=== PATIENT | male | born 1955 | race African-American/Black ===

== ENCOUNTER 2023-03-15 18:11 | Emergency (ER) | payer OTHER, SELFPAY ==
[2023-03-15 18:19] VITALS: BP 148/90; PULSE 101; RESP 18; TEMP 36.3; O2SAT 99; BMI 35.1
--- NOTE | 2023-03-15 18:47 | ECG_ITS ---
[facility] Test Date: 2023-03-15 Pat Name: MARK THOMAS Department: Room: - Gender: Male [employer]: : 1955 Requested By: [id number] Order Number: [id number] Reading MD: NAVIN BAER Measurements Intervals [place] Rate: 89 P: 57 ME: 208 QRS: 53 QRSD: 92 T: 90 QT: 368 QTc: 414 Interpretive Statements 1100 Sinus rhythm 1570 with occasional ventricular premature complexes 9140 abnormal rhythm ECG No previous ECG available for comparison Electronically Signed On 03-16-2023 7:10:40 EST by NAVIN BAER
[2023-03-15 19:01] VITALS: PULSE 89
--- NOTE | 2023-03-15 19:06 | ED_ITS ---
HPI - Abdominal Pain General Chief Complaint: Abdominal Pain Stated Complaint: ABDOMINAL PAIN Time Seen by Provider: 03/15/23 18:23 Source: patient Mode of arrival: walk-in Limitations: no limitations History of Present Illness HPI narrative: Patient is a 68-year-old male referred to the emergency department by his primary care provider for diffuse abdominal pain that began today associated with multiple episodes of vomiting and vomiting bile. He denies fevers, chills, diarrhea. He states he had a bowel movement today but does not feel as though he went enough. He has had no urinary symptoms. He denies any urinary changes. No medications taken prior to arrival. He denies any previous surgeries on his abdomen. Related Data Previous Rx's Medication Instructions Recorded dicyclomine 20 mg tablet 20 mg PO QID PRN abdominal pain 03/15/23 #12 tabs ondansetron 4 mg disintegrating 4 mg PO Q6H PRN nausea and 03/15/23 tablet vomiting #12 tabs potassium chloride 20 mEq 20 meq PO BID #6 tabs 03/15/23 tablet,extended release Allergies Allergy/AdvReac Type Severity Reaction Status Date / Time No Known Drug Allergies Allergy Verified 03/15/23 18:19 Review of Systems ROS Constitutional Denies: fever or chills Ears, nose, mouth, and throat Denies: throat pain or nasal congestion Cardiovascular Denies: chest pain Respiratory Denies: shortness of breath or cough Gastrointestinal Reports: abdominal pain, nausea and vomiting; Denies: diarrhea Genitourinary Denies: painful urination Musculoskeletal Denies: back pain Integumentary/Breast Denies: rash Neurological Denies: headache PFSH PFSH Social History Smoking status: Former smoker Exam Narrative Exam Narrative: Gen.: Awake, alert, in no distress Head: Normocephalic, atraumatic ENT: Moist mucous membranes Respiratory: No respiratory distress, lungs clear bilaterally Cardio: Regular rate and rhythm Gastrointestinal: Abdomen is soft, nondistended and nontender to palpation Extremities: Moves extremities equally, no injuries noted Psych: Normal mood and affect Neuro: No focal neuro deficit Skin: Warm, dry, intact Constitutional Vital Signs, click to edit/add: Last Vital Signs Temp 97.4 F L 03/15/23 18:19 Pulse 96 H 03/15/23 21:53 Resp 18 03/15/23 21:53 BP 166/93 H 03/15/23 21:53 Pulse Ox 97 03/15/23 21:53 O2 Del Method Room Air 03/15/23 21:53 Course Vital Signs Vital signs: Vital Signs Temperature 97.4 F L 03/15/23 18:19 Pulse Rate 101 H 03/15/23 18:19 Respiratory Rate 18 03/15/23 18:19 Blood Pressure 148/90 H 03/15/23 18:19 Pulse Oximetry 99 03/15/23 18:19 Oxygen Delivery Method Room Air 03/15/23 18:19 Temperature 97.4 F L 03/15/23 18:19 Pulse Rate 96 H 03/15/23 21:53 Respiratory Rate 18 03/15/23 21:53 Blood Pressure 166/93 H 03/15/23 21:53 Pulse Oximetry 97 03/15/23 21:53 Oxygen Delivery Method Room Air 03/15/23 21:53 MDM - Abdominal Pain MDM Narrative Medical decision making narrative: Lab studies show the patient has low potassium, otherwise unremarkable labs. Lactic acid is normal, influenza swab was requested by the patient, this is also negative. CT of the abdomen pelvis with no evidence of acute process. Patient discharged home with Zofran, Levsin, potassium. Follow-up with PCP and return to the ER if symptoms change or worsen. Medical Records Attestation: I reviewed the patient's medical records. Lab Data Attestation: I reviewed the patient's lab results. Labs: Lab Results 03/15/23 03/15/23 03/15/23 Range/Units 18:58 20:30 20:50 WBC 6.3 (4.0-11.0) 10^3/uL RBC 4.65 L (4.70-6.10) 10^6/uL Hgb 12.8 L (14.0-18.0) g/dL Hct 38.0 L (42.0-54.0) % MCV 81.7 (80.0-94.0) fL MCH 27.5 (25.9-34.0) pg MCHC 33.7 (29.9-35.2) g/dL RDW 13.1 (11.0-15.0) % Plt Count 200 (150-450) 10^3/uL MPV 9.7 (9.5-13.5) fL Neut % (Auto) 77.4 H (43.0-75.0) % Lymph % (Auto) 16.7 L (20.5-60.0) % Pope % (Auto) 4.9 (1.7-12.0) % Eos % (Auto) 0.2 L (0.9-7.0) % Baso % (Auto) 0.6 (0.2-2.0) % Neut # (Auto) 4.9 (1.4-6.5) 10^3/uL Lymph # (Auto) 1.1 L (1.2-3.8) 10^3/uL Pope # (Auto) 0.3 (0.3-0.8) 10^3/uL Eos # (Auto) 0.0 (0.0-0.7) 10^3/uL Baso # (Auto) 0.0 (0.0-0.1) 10^3/uL Abs Immat Gran (auto) 0.01 (0.00-0.03) 10^3/uL Imm/Tot Granulo (auto) 0.2 (0.0-0.5) % Sodium 137 (136-145) mmol/L Potassium 2.8 L* (3.5-5.1) mmol/L Chloride 96 L (98-107) mmol/L Carbon Dioxide 32.7 H (21.0-32.0) mmol/L Anion Gap 11.1 BUN 15.0 (7.0-18.0) mg/dL Creatinine 0.73 (0.70-1.30) mg/dL Est GFR ( Amer) >60 (>=60) Est GFR (Non-Af Amer) >60 (>=60) BUN/Creatinine Ratio 20.5 Glucose 146 H (74-106) mg/dL Lactate 1.4 (0.4-2.0) mmol/L Calcium 9.7 (8.5-10.1) mg/dL Total Bilirubin 0.7 (0.2-1.0) mg/dL AST 25 (15-37) U/L ALT 26 (16-63) U/L Alkaline Phosphatase 97 (46-116) U/L Troponin I High Sens 7.7 (4.0-76.1) pg/mL Total Protein 8.9 H (6.4-8.2) g/dL Albumin 4.6 (3.4-5.0) g/dL Globulin 4.3 g/dL Albumin/Globulin Ratio 1.1 Lipase 38.0 (16.0-77.0) U/L Urine Color Yellow (YELLOW) Urine Clarity Clear (CLEAR) Urine pH 7.0 (5.0-9.0) Ur Specific [place] 1.015 (1.005-1.025) Urine Protein 30 A (NEG/TRACE) mg/dL Urine Glucose (UA) Negative (NEGATIVE) mg/dL Urine Ketones 15 A (NEGATIVE) mg/dL Urine Occult Blood Trace-i (NEGATIVE) Urine Nitrite Negative (NEGATIVE) Urine Bilirubin Negative (NEGATIVE) Urine Urobilinogen 0.2 (0.2-1.0) EU/dL Ur Leukocyte Esterase Negative (NEGATIVE) Urine RBC 0-2 (0-2) #/HPF Urine WBC None seen (NONE SEEN) #/HPF Ur Squamous Epith Cells None seen (NONE/RARE) #/LPF Urine Crystals None seen (None Seen) #/HPF Urine Bacteria None seen (NONE SEEN) #/HPF Urine Casts None seen (NONE SEEN) #/LPF Urine Mucus None seen (NONE SEEN) Influenza Type A Ag Negative Influenza Type B Ag Negative Imaging Data CT scan - abdomen: Attestation: I have reviewed the pertinent imaging results. Radiologist's impression: Procedure: CT abdomen pelvis w con EXAM: CT abdomen pelvis w con HISTORY: Abdominal pain, vomiting COMPARISON: 05/18/2021 TECHNIQUE: Axial CT imaging was performed through the abdomen and pelvis with intravenous contrast. Multiplanar reformats were performed. Dose reduction techniques were achieved by using automated exposure control and/or adjustment of mA and/or kV according to patient size and/or use of iterative reconstruction technique. FINDINGS: Lung bases: Lung bases are clear. No pleural effusion. GI upper: Unremarkable. Liver: Normal size and contour. Gallbladder: No significant abnormality. No cholelithiasis. Biliary system: No intra or extrahepatic biliary ductal dilatation. Spleen: Normal size. Pancreas: Unremarkable. Adrenal glands: Normal adrenal glands. Kidneys/ureters: Normal contours. No hydronephrosis. No nephrolithiasis or ureterolithiasis. Vessels: No aneurysm. Lymph Nodes: No lymphadenopathy. Small bowel: No wall thickening or dilatation. Colon: No wall thickening or dilatation. Appendix: Appendix is identified with normal appearance. Peritoneal cavity: No free fluid or pneumoperitoneum. Lower : Unremarkable. Bones: No acute bony abnormality. Soft tissues: No acute finding. Additional findings: None. IMPRESSION: No acute finding of the abdomen and pelvis. Electronically authenticated by: JESSICA ASENCIO Date: 03/15/2023 20:49 ECG Data Attestation: I personally reviewed and interpreted this ECG as follows: (Normal sinus rhythm at a rate of 89, no acute ST elevation. Occasional ectopy. EKG reviewed by attending physician) ECG interpretation date: 03/15/23 Discharge Plan Discharge Chief Complaint: Abdominal Pain Clinical Impression: Nausea & vomiting, Abdominal pain, Acute hypokalemia Patient Disposition: Home, Self-Care Time of Disposition Decision: 21:33 Condition: Good Prescriptions / Home Meds: New dicyclomine 20 mg tablet 20 mg PO QID PRN (Reason: abdominal pain) Qty: 12 0RF ondansetron 4 mg tablet,disintegrating 4 mg PO Q6H PRN (Reason: nausea and vomiting) Qty: 12 0RF potassium chloride 20 mEq tablet extended release 20 meq PO BID Qty: 6 0RF Instructions: Hypokalemia (ED), Abdominal Pain (ED) Stand Alone Forms: Portal Instructions Referrals: ABDOUL ADAM [Primary Care Provider] - 1 week Discharge Date/Time: 03/15/23 21:56
[2023-03-15 19:12] LABS: Basophils Percent Auto 0.6 % (0.2-2.0); Eosinophils Percent Auto 0.2 % (0.9-7.0); Hemoglobin 12.8 g/dL (14.0-18.0); Immature Granulocytes Abs Auto 0.01 10^3/uL (0.00-0.03); Immature Granulocytes Pct Auto 0.2 % (0.0-0.5); Lymphocytes Absolute Auto 1.1 10^3/uL (1.2-3.8); Lymphocytes Percent Auto 16.7 % (20.5-60.0); Mean Corpuscular HGB Conc 33.7 g/dL (29.9-35.2); Mean Corpuscular Hemoglobin 27.5 pg (25.9-34.0); Mean Corpuscular Volume 81.7 fL (80.0-94.0); Mean Platelet Volume 9.7 fL (9.5-13.5); Monocytes Absolute Auto 0.3 10^3/uL (0.3-0.8); Monocytes Percent Auto 4.9 % (1.7-12.0); Neutrophils Absolute Auto 4.9 10^3/uL (1.4-6.5); Neutrophils Percent Auto 77.4 % (43.0-75.0); Platelet Count 200 10^3/uL (150-450); Red Blood Count 4.65 10^6/uL (4.70-6.10); Red Cell Distribution Width 13.1 % (11.0-15.0); White Blood Count 6.3 10^3/uL (4.0-11.0)
[2023-03-15 19:33] LABS: Troponin I High Sensitivity 7.7 pg/mL (4.0-76.1)
[2023-03-15 19:34] LABS: Lactate/Lactic Acid 1.4 mmol/L (0.4-2.0)
[2023-03-15] MEDS: ONDANSETRON PF 4 MG/2 ML VIAL IV (19:35)
[2023-03-15] MEDS: MORPHINE SULFATE 4 MG/ML VIAL IV (19:35)
[2023-03-15] MEDS: 0.9 % SODIUM CHLORIDE 1,000 ML 100 ML IV (19:35)
[2023-03-15] MEDS: HYOSCYAMINE SULFATE 0.125 MG TAB.SUBL SL (19:35)
[2023-03-15 19:41] LABS: Alanine Aminotransferase 26 U/L (16-63); Albumin Globulin Ratio 1.1; Albumin Level 4.6 g/dL (3.4-5.0); Alkaline Phosphatase 97 U/L (46-116); Anion Gap 11.1; Aspartate Amino Transferase 25 U/L (15-37); BUN Creatinine Ratio 20.5; Bilirubin Total 0.7 mg/dL (0.2-1.0); Calcium 9.7 mg/dL (8.5-10.1); Carbon Dioxide 32.7 mmol/L (21.0-32.0); Chloride 96 mmol/L (98-107); Estimated GFR (African America >60 (>=60); Estimated GFR (Non-African Ame >60 (>=60); Globulin 4.3 g/dL; Glucose 146 mg/dL (74-106); Sodium 137 mmol/L (136-145); Total Protein 8.9 g/dL (6.4-8.2)
[2023-03-15 19:55] LABS: Potassium 2.8 mmol/L (3.5-5.1)
--- NOTE | 2023-03-15 20:00 | CT_ITS ---
[address] [address] Patient Name: MARK THOMAS MRN: [id number] date: 1955 Sex: M Assigned Patient Location: ER Current Patient Location: ED.MAIN Accession/Order Number: [id number] Exam Date: 03/15/2023 20:08 Report Date: 03/15/2023 20:49 At the request of: RAÚL MCLEAN Procedure: CT abdomen pelvis w con EXAM: CT abdomen pelvis w con HISTORY: Abdominal pain, vomiting COMPARISON: 05/18/2021 TECHNIQUE: Axial CT imaging was performed through the abdomen and pelvis with intravenous contrast. Multiplanar reformats were performed. Dose reduction techniques were achieved by using automated exposure control and/or adjustment of mA and/or kV according to patient size and/or use of iterative reconstruction technique. FINDINGS: Lung bases: Lung bases are clear. No pleural effusion. GI upper: Unremarkable. Liver: Normal size and contour. Gallbladder: No significant abnormality. No cholelithiasis. Biliary system: No intra or extrahepatic biliary ductal dilatation. Spleen: Normal size. Pancreas: Unremarkable. Adrenal glands: Normal adrenal glands. Kidneys/ureters: Normal contours. No hydronephrosis. No nephrolithiasis or ureterolithiasis. Vessels: No aneurysm. Lymph Nodes: No lymphadenopathy. Small bowel: No wall thickening or dilatation. Colon: No wall thickening or dilatation. Appendix: Appendix is identified with normal appearance. Peritoneal cavity: No free fluid or pneumoperitoneum. Lower : Unremarkable. Bones: No acute bony abnormality. Soft tissues: No acute finding. Additional findings: None. CT/CT abdomen pelvis w con IMPRESSION: No acute finding of the abdomen and pelvis. Electronically authenticated by: JESSICA ASENCIO Date: 03/15/2023 20:49
[2023-03-15 20:42] LABS: Bilirubin Urine NEGATIVE (NEGATIVE); Blood Urine TRACE-I (NEGATIVE); Clarity Urine CLEAR (CLEAR); Color Urine YELLOW (YELLOW); Glucose Urine UA NEGATIVE (NEGATIVE); Ketones Urine 15 mg/dL (NEGATIVE); Leukocyte Esterase Urine NEGATIVE (NEGATIVE); Nitrite Urine NEGATIVE (NEGATIVE); Protein Urine 30 mg/dL (NEG/TRACE); Specific Gravity Urine 1.015 (1.005-1.025); Urine Microscopic Indicated YES; Urobilinogen Urine 0.2 EU/dL (0.2-1.0)
[2023-03-15 20:43] VITALS: BP 170/100; PULSE 96; RESP 14; O2SAT 97
[2023-03-15] MEDS: KETOROLAC TROMETHAMINE 30 MG/ML VIAL 15 MG IVP (20:48)
[2023-03-15 21:21] LABS: Bacteria Urine NONE SEEN #/HPF (NONE SEEN); Cast Seen? NONE SEEN #/LPF (NONE SEEN); Crystals Seen? None Seen #/HPF (None Seen); Mucus Urine NONE SEEN (NONE SEEN); RBC Urine 0-2 #/HPF (0-2); Squamous Epithelial Cell Urine NONE SEEN #/LPF (NONE/RARE); WBC Urine NONE SEEN #/HPF (NONE SEEN)
[2023-03-15 21:25] LABS: Influenza Virus A Antigen Negative; Influenza Virus B Antigen Negative; Internal Control Within Normal Limits
[2023-03-15] MEDS: POTASSIUM BICARBONATE/CIT 25 MEQ TABLET EFF 50 MEQ PO (21:26)
[2023-03-15 21:30] VITALS: BP 184/100; PULSE 95; RESP 18; O2SAT 96
[2023-03-15 21:53] VITALS: BP 166/93; PULSE 96; RESP 18; O2SAT 97
== END 2023-03-15 21:56 | disposition home or self-care (01) ==
PROVIDERS: Physician Assistant; Emergency Provider Emergency Medicine Emergency Medical Services; PCP Family Medicine
DX: R10.9 Unspecified abdominal pain (principal); R11.2 Nausea with vomiting, unspecified; E87.6 Hypokalemia; Z87.891 Personal history of nicotine dependence
CPT/HCPCS: 36415; 74177; 80053; 81001; 83605; 83690; 84484; 85025; 87804; 87811; 93005; 96374; 96375; 99285; Q9967

== ENCOUNTER 2023-09-05 21:55 | Emergency (ER) | payer OTHER, SELFPAY ==
[2023-09-05 22:00] VITALS: BP 128/65; PULSE 83; TEMP 36.6; O2SAT 96; BMI 36.6
--- NOTE | 2023-09-05 22:10 | ECG_ITS ---
[facility] Test Date: 2023-09-05 Pat Name: MARK THOMAS Department: Room: - Gender: Male Transport Engineer: : 1955 Requested By: [id number] Order Number: [id number] Reading MD: NAVIN BAER Measurements Intervals [place] Rate: 84 P: 68 ND: 192 QRS: 67 QRSD: 92 T: 106 QT: 382 QTc: 423 Interpretive Statements 1100 Sinus rhythm 1577 with couplet ventricular premature complexes [address] depression 6220 Possible left atrial enlargement 7300 Indeterminate axis 9150 abnormal ECG Electronically Signed On 09-06-2023 6:51:24 EDT by NAVIN BAER
--- OUTSIDE RECORDS SUMMARY | 2023-09-05 22:10 | XMS_ITS | CCD ---
Author Organization [facility] Team Providers Care Dental Coordinator Name Role Phone FLAQUITO FERNANDEZ Admitting Unavailable FLAQUITO FERNANDEZ Attending Unavailable MISC, DR WALTON Primary Care Unavailable FLAQUITO FERNANDEZ Consulting Unavailable [employer] Consulting Unavailable Jeramie Lara Consulting Unavailable Wilfredo Colon Unavailable [phone] Esther Rain Unavailable Pop Cm Attending Unavailable Kylah James Primary Care Unavailable Kylah James Referring Unavailable Pop Cm Admitting Unavailable EMILY ESCUDERO Attending Unavailab STEPHANY Ureña Attending Unavailable KATRIN GARCIA Attending Unavailable Medications Current Medications Medication Drug Class(es) Dates Sig (Normalized) Sig (Original) acyclovir 400 mg oral tablet (2 sources) Herpesvirus Nucleoside Analog DNA Polymerase Inhibitor, Herpes Simplex Virus Nucleoside Analog DNA Polymerase Inhibitor, Herpes Zoster Virus Nucleoside Analog DNA Polymerase Inhibitor Start: 05-10-2020 take 400 mg by mouth twice daily Acyclovir Active 400 MG PO Twice daily May 10, 2020 1:00am allopurinol 100 mg oral tablet (2 sources) Xanthine Oxidase Inhibitor Start: 05-10-2020 take 100 mg by mouth once daily Allopurinol Active 100 MG PO Daily May 10, 2020 1:00am amLODIPine 10 mg oral tablet (2 sources) Dihydropyridine Calcium Channel Charlee Start: 05-10-2020 take 10 mg by mouth once daily Amlodipine Active 10 MG PO Daily May 10, 2020 1:00am atorvastatin 10 mg oral tablet (1 source) HMG-CoA Reductase Inhibitor Atorvastatin Calcium 10 MG Oral for 90 Days Active buprenorphine 4 mg / naloxone 1 mg sublingual film (1 source) Partial Opioid Agonist, Opioid Antagonist Start: 05-10-2020 Buprenorphine-Nal oxone (Suboxone) 4-1 mg Film Active 1 FILM SUBLINGUAL Daily May 10, 2020 1:00am carvedilol 25 mg oral tablet (2 sources) alpha-Adrenergic Charlee, beta-Adrenergic Charlee Start: 05-10-2020 take 25 mg by mouth twice daily Carvedilol Active 25 MG PO Twice daily May 10, 2020 1:00am Compression stockings, 30-40mmHg, calf 30-40mmHg (9 sources) Start: 12-29-2022 Compression stockings, 30-40mmHg, calf 30-40mmHg 1 pair externally daily while awake for 30 days Dec, Active Start: 12-24-[address] ockings, 30-40mmHg, calf 30-40mmHg 1 externally daily as directed for 30 days Dec, Active Start: 10-20-[address] ockings, 30-40mmHg, calf 30-40mmHg externally daily as directed for 90 days Oct, Active Start: 02-24-[address] ockings, 30-40mmHg, calf 30-40mmHg externally daily as directed for 90 days Feb, Active Start: 01-29-[address] ockings, 30-40mmHg, calf 30-40mmHg externally daily as directed for 30 days Jan, Active fexofenadine hydrochloride 180 mg oral tablet (1 source) Histamine-1 Receptor Antagonist Start: 05-10-2020 take 1 tablet by mouth once daily Fexofenadine (Rajani Allergy) 180 mg Tablet Active 180 MG PO Daily May 10, 2020 1:00am furosemide 40 mg oral tablet (2 sources) Loop Diuretic Start: 05-10-2020 take 40 mg by mouth twice daily Furosemide Active 40 MG PO Twice daily May 10, 2020 1:00am gabapentin 300 mg oral capsule (1 source) Anti-epileptic Agent take 1 capsule by mouth at bedtime Gabapentin 300 MG TAKE 1 CAPSULE BY MOUTH AT BEDTIME Oral for 90 Days Active Pulsb-Les-X-Ednmw-Nlef-K ve (Joint Support Complex) 106-618-28-0.5 mg Capsule (1 source) Start: 05-10-2020 take 2 capsules by mouth once daily in the morning Omzza-Jjo-T-[place] -Alexander-Tina (Joint Support Complex) 266-856-45-0.5 mg Capsule Active 2 CAP PO Every morning May 10, 2020 1:00am hydroCHLOROthiazide 25 mg / losartan potassium 100 mg oral tablet (2 sources) Thiazide Diuretic, Angiotensin 2 Receptor Charlee Start: 05-10-2020 take 1 tablet by mouth once daily Losartan-Hydrochl orothiazide Active 1 TAB PO Daily May 10, 2020 1:00am Losartan Potassi um-HCTZ 100-25 MG Oral for 90 Days Active Medical Compression Stockings 20-30 mmHg (4 sources) Start: 03-04-2016 Medical Compression Stockings 20-30 mmHg as directed Feb, Active meloxicam 7.5 mg oral tablet (2 sources) Nonsteroidal Anti-inflammatory Drug Start: 05-10-2020 take 7.5 mg by mouth once daily Meloxicam Active 7.5 MG PO Daily May 10, 2020 1:00am Multivit With Min-Folic Acid (Centrum Adult 50 Fresh-Fruity) 120 mcg Tablet,Chewable (1 source) Start: 05-10-2020 take 1 tablet by mouth once daily Multivit With Min-Folic Acid (Centrum Adult 50 Fresh-Fruity) 120 mcg Tablet,Chewable Active 1 TAB PO Daily May 10, 2020 1:00am tiZANidine 4 mg oral tablet (1 source) Central alpha-2 Adrenergic Agonist tiZANidine HCl 4 MG Oral for 30 Days Active Completed/Discontinued Medications Medication Drug Class(es) Dates Sig (Normalized) Sig (Original) Acetaminophen / HYDROcodone (4 sources) Opioid Agonist Start: 07-19-2014 take 1 tablet by mouth every six hours as needed Vicodin 5-300 MG 1 tablet as needed Orally every 6 hrs for 5 day(s) Jul, Not-Taking Medical Compression Stockings 30-40 mmHg (4 sources) Start: 05-06-2015 Medical Compression Stockings 30-40 mmHg as directed May, Not-Taking Problems Active Problems Problem Classification Problem Date Documented Date Episodic/Chronic Abdominal pain (4 sources) Unspecified abdominal pain; Translations: [UNSPECIFIED ABDOMINAL PAIN] Onset: 05-18-2021 Episodic Diseases of white blood cells (2 sources) Neutropenia; Translations: [Neutropenia, unspecified] Onset: 05-13-2020 05-13-2020 Chronic Other aftercare (1 source) Other halfway (current) drug therapy; Translations: [OTH RAIL TRACK LAYER CURRENT DRUG THERAPY] Onset: 05-22-2021 Episodic Other circulatory disease (1 source) Personal history of other diseases of the circulatory system Episodic Other diseases of veins and lymphatics (5 sources) Venous insufficiency of leg; Translations: [Venous insufficiency (chronic) (peripheral)] Episodic Other diseases of veins and lymphatics (5 sources) Venous stasis edema of bilateral lower limbs; Translations: [Venous insufficiency (chronic) (peripheral)] Episodic Other diseases of veins and lymphatics (2 sources) Venous insufficiency (chronic) (peripheral) Onset: 05-01-2021 Resolved: 05-01-2021 Episodic Other diseases of veins and lymphatics (1 source) Vascular insufficiency; Translations: [Venous insufficiency (chronic) (peripheral)] Episodic Residual codes; unclassified (1 source) Localized edema Episodic Unclassified (1 source) CONTACT W/AND (SUSP) EXPOS COVID-19; Translations: [CONTACT W/AND (SUSP) EXPOS COVID-19] Onset: 05-22-2021 Varicose veins of lower extremity (8 sources) Varicose veins of lower extremity; Translations: [Varicose veins of bilateral lower extremities with other complications] Onset: 05-01-2021 Resolved: 05-01-2021 Episodic Past or Other Problems Problem Classification Problem Date Documented Da te Episodic/Chronic Deficiency and other anemia (1 source) Anemia, unspecified; Translations: [Anemia, unspecified] Onset: 05-13-2020 Episodic Results Test Name Value Interpretation Reference Range Facility ALT (SGPT)/AST (SGOT)on 05-07 ALT [Catalytic activity/Vol] 22 U/L Normal (1 - 45) [facility] Comment on above: Performed By: #### C BC/D, BC/BCR, ESRCRP, ALT+, URCA #### [facility] [address] [facility], [address] AST [Catalytic activity/Vol] 33 U/L Normal (15 - 46) [facility] Comment on above: Performed By: #### C BC/D, BC/BCR, ESRCRP, ALT+, URCA #### [facility] [address] [facility], [address] BUN - CREATININE W/GFRon Creatinine [Mass/Vol] 0.64 mg/dL Low (0.66 - 1.25) [facility] Comment on above: Performed By: #### C BC/D, BC/BCR, ESRCRP, ALT+, URCA #### [facility] [address] [facility], [address] GFR- AMER 151.4 ML/M1.7 Normal (60.0 - 161.8) [facility] Comment on above: Performed By: #### C BC/D, BC/BCR, ESRCRP, ALT+, URCA #### [facility] [address] [facility], [address] GFR-NON AFRIC-AMER 125.1 ML/M1.7 Normal (60.0 - 133.8) [facility] Comment on above: Performed By: #### C BC/D, BC/BCR, ESRCRP, ALT+, URCA #### [facility] [address] [facility], [address] Urea nitrogen [Mass/Vol] 17 mg/dL Normal (9 - 20) [facility] Comment on above: Performed By: #### C BC/D, BC/BCR, ESRCRP, ALT+, URCA #### [facility] [address] [facility], [address] Urea nitrogen/Creatini ne [Mass ratio] 27 mg/mg High (6 - 20) [facility] Comment on above: Performed By: #### C BC/D, BC/BCR, ESRCRP, ALT+, URCA #### [facility] [address] [facility], [address] CBC WITH DIFFon 06-02-2023 ABS BASOPHIL 0.06 x10^3ul Normal (0.00 - 0.16) [facility] Comment on above: Order Comment: F[facility]IL [facility] [id number] Performed By: #### C BC/D, BC/BCR, ESRCRP, ALT+, URCA #### [facility] [address] [facility], [address] ABS EOSINOPHIL 0.21 x10^3ul Normal (0.00 - 0.40) [facility] Comment on above: Order Comment: [facility]IL [facility] [id number] Performed By: #### C BC/D, BC/BCR, ESRCRP, ALT+, URCA #### [facility] [address] [facility], [address] ABS IMMATURE GRANS 0.00 x10^3ul Normal (0.00 - 0.11) [facility] Comment on above: Order Comment: [facility]IL [facility] [id number] Performed By: #### C BC/D, BC/BCR, ESRCRP, ALT+, URCA #### [facility] [address] [facility], [address] ABS LYMPHOCYTE 1.35 x10^3ul Normal (0.96 - 5.40) [facility] Comment on above: Order Comment: [facility]IL [facility] [id number] Performed By: #### C BC/D, BC/BCR, ESRCRP, ALT+, URCA #### [facility] [address] [facility], [address] ABS MONOCYTE 0.49 x10^3ul Normal (0.10 - 1.00) [facility] Comment on above: Order Comment: [facility]IL [facility] [id number] Performed By: #### C BC/D, BC/BCR, ESRCRP, ALT+, URCA #### [facility] [address] [facility], [address] ABS NEUTROPHIL 2.37 x10^3ul Normal (1.50 - 7.00) [facility] Comment on above: Order Comment: [facility]IL [facility] [id number] Performed By: #### C BC/D, BC/BCR, ESRCRP, ALT+, URCA #### [facility] [address] [facility], [address] Basophils/100 WBC (Bld) 1.3 % Normal () [facility] Comment on above: Order Comment: [facility]IL [facility] [id number] Performed By: #### C BC/D, BC/BCR, ESRCRP, ALT+, URCA #### [facility] [address] [facility], [address] Eosinophils/100 WBC (Bld) 4.7 % Normal () [facility] Comment on above: Order Comment: [facility]IL [facility] [id number] Performed By: #### C BC/D, BC/BCR, ESRCRP, ALT+, URCA #### [facility] [address] [facility], [address] Hematocrit (Bld) [Volume fraction] 37.0 % Low (42.0 - 52.0) [facility] Comment on above: Order Comment: [facility]IL [facility] [id number] Performed By: #### C BC/D, BC/BCR, ESRCRP, ALT+, URCA #### [facility] [address] [facility], [address] Hemoglobin (Bld) [Mass/Vol] 12.1 g/dL Low (14.0 - 18.0) [facility] Comment on above: Order Comment: [facility]IL [facility] [id number] Performed By: #### C BC/D, BC/BCR, ESRCRP, ALT+, URCA #### [facility] [address] [facility], [address] IMMATURE GRANS (IG) 0.0 % Normal () [facility] Comment on above: Order Comment: [facility]IL [facility] [id number] Performed By: #### C BC/D, BC/BCR, ESRCRP, ALT+, URCA #### [facility] [address] [facility], [address] LYMPS 30.1 % Normal () [facility] Comment on above: Order Comment: [facility]IL [facility] [id number] Performed By: #### C BC/D, BC/BCR, ESRCRP, ALT+, URCA #### [facility] [address] [facility], [address] MCH (RBC) [Entitic mass] 26.7 pg Low (27.0 - 33.0) [facility] Comment on above: Order Comment: [facility]IL [facility] [id number] Performed By: #### C BC/D, BC/BCR, ESRCRP, ALT+, URCA #### [facility] [address] [facility], [address] MCHC (RBC) [Mass/Vol] 32.7 g/dL Normal (30.0 - 37.0) [facility] Comment on above: Order Comment: [facility]IL [facility] [id number] Performed By: #### C BC/D, BC/BCR, ESRCRP, ALT+, URCA #### [facility] [address] [facility], [address] MCV (RBC) [Entitic vol] 81.7 fL Normal (80.0 - 94.0) [facility] Comment on above: Order Comment: [facility]IL [facility] [id number] Performed By: #### C BC/D, BC/BCR, ESRCRP, ALT+, URCA #### [facility] [address] [facility], [address] MONOS 10.9 % Normal () [facility] Comment on above: Order Comment: [facility]IL [facility] [id number] Performed By: #### C BC/D, BC/BCR, ESRCRP, ALT+, URCA #### [facility] [address] [facility], [address] PLT 196 x10^3ul Normal (130 - 400) [facility] Comment on above: Order Comment: [facility]IL [facility] [id number] Performed By: #### C BC/D, BC/BCR, ESRCRP, ALT+, URCA #### [facility] [address] [facility], [address] RBC 4.53 x10^6ul Low (4.70 - 6.10) [facility] Comment on above: Order Comment: [facility]IL [facility] [id number] Performed By: #### C BC/D, BC/BCR, ESRCRP, ALT+, URCA #### [facility] [address] [facility], [address] RDW-SD 40.9 fl Normal (37.0 - 49.0) [facility] Comment on above: Order Comment: F[facility]IL [facility] [id number] Performed By: #### C BC/D, BC/BCR, ESRCRP, ALT+, URCA #### [facility] [address] [facility], [address] SEGS 53.0 % Normal () [facility] Comment on above: Order Comment: FACIL [facility]: [facility] [id number] Performed By: #### C BC/D, BC/BCR, ESRCRP, ALT+, URCA #### [facility] [address] [facility], [address] WBC 4.48 x10^3ul Normal (3.80 - 10.60) [facility] Comment on above: Order Comment: FACIL ITY: [facility] [id number] Performed By: #### C BC/D, BC/BCR, ESRCRP, ALT+, URCA #### [facility] [address] [facility], [address] SED RATE - CRPon 06-02-2023 CRP EXTENDED RANGE 2.05 MG/L Normal (0.00 - 3.20) [facility] Comment on above: Performed By: #### C BC/D, BC/BCR, ESRCRP, ALT+, URCA #### [facility] [address] [place], [address] SED RATE WEST. 13 MM/HR Normal (0 - 24) [facility] Comment on above: Performed By: #### C BC/D, BC/BCR, ESRCRP, ALT+, URCA #### [facility] [address] [facility], [address] URIC ACIDon 06-02-2023 Urate [Mass/Vol] 5.8 mg/dL Normal (3.5 - 8.5) [facility] Comment on above: Performed By: #### C BC/D, BC/BCR, ESRCRP, ALT+, URCA #### [facility] [address] [facility], [address] ALT (SGPT)/AST (SGOT)on 01-04 ALT [Catalytic activity/Vol] 27 U/L Normal (1 - 45) [facility] Comment on above: Performed By: #### C BC/D, BC/BCR, ESRCRP, ALT+, URCA #### [facility] [address] [facility], [address] AST [Catalytic activity/Vol] 37 U/L Normal (15 - 46) [facility] Comment on above: Performed By: #### C BC/D, BC/BCR, ESRCRP, ALT+, URCA #### [facility] [address] [facility], [address] BUN - CREATININE W/GFRon Creatinine [Mass/Vol] 0.84 mg/dL Normal (0.66 - 1.25) [facility] Comment on above: Performed By: #### C BC/D, BC/BCR, ESRCRP, ALT+, URCA #### [facility] [address] [facility], [address] GFR- AMER 111.0 ML/M1.7 Normal (60.0 - 161.8) [facility] Comment on above: Performed By: #### C BC/D, BC/BCR, ESRCRP, ALT+, URCA #### [facility] [address] [facility], [address] GFR-NON AFRIC-AMER 91.7 ML/M1.7 Normal (60.0 - 133.8) [facility] Comment on above: Performed By: #### C BC/D, BC/BCR, ESRCRP, ALT+, URCA #### [facility] [address] [facility], [address] Urea nitrogen [Mass/Vol] 18 mg/dL Normal (9 - 20) [facility] Comment on above: Performed By: #### C BC/D, BC/BCR, ESRCRP, ALT+, URCA #### [facility] [address] [facility], [address] Urea nitrogen/Creatini ne [Mass ratio] 21 mg/mg High (6 - 20) [facility] Comment on above: Performed By: #### C BC/D, BC/BCR, ESRCRP, ALT+, URCA #### [facility] [address] [facility], [address] CBC WITH DIFFon 01-25-2023 ABS BASOPHIL 0.04 x10^3ul Normal (0.00 - 0.16) [facility] Comment on above: Order Comment: FACIL ITY: [facility] [id number] Performed By: #### C BC/D, BC/BCR, ESRCRP, ALT+, URCA #### [facility] [address] [facility], [address] ABS EOSINOPHIL 0.29 x10^3ul Normal (0.00 - 0.40) [facility] Comment on above: Order Comment: F[facility]IL [facility]: [facility] [id number] Performed By: #### C BC/D, BC/BCR, ESRCRP, ALT+, URCA #### [facility] [address] [facility], [address] ABS IMMATURE GRANS 0.01 x10^3ul Normal (0.00 - 0.11) [facility] Comment on above: Order Comment: FACIL ITY: [facility] [id number] Performed By: #### C BC/D, BC/BCR, ESRCRP, ALT+, URCA #### [facility] [address] [facility], [address] ABS LYMPHOCYTE 1.80 x10^3ul Normal (0.96 - 5.40) [facility] Comment on above: Order Comment: FACIL [facility]: [facility] [id number] Performed By: #### C BC/D, BC/BCR, ESRCRP, ALT+, URCA #### [facility] [address] [facility], [address] ABS MONOCYTE 0.42 x10^3ul Normal (0.10 - 1.00) [facility] Comment on above: Order Comment: FACIL [facility]: [facility] [id number] Performed By: #### C BC/D, BC/BCR, ESRCRP, ALT+, URCA #### [facility] [address] [facility], [address] ABS NEUTROPHIL 2.68 x10^3ul Normal (1.50 - 7.00) [facility] Comment on above: Order Comment: FACIL ITY: [facility] [id number] Performed By: #### C BC/D, BC/BCR, ESRCRP, ALT+, URCA #### [facility] [address] [facility], [address] Basophils/100 WBC (Bld) 0.8 % Normal () [facility] Comment on above: Order Comment: FACIL ITY: [facility] [id number] Performed By: #### C BC/D, BC/BCR, ESRCRP, ALT+, URCA #### [facility] [address] [facility], [address] Eosinophils/100 WBC (Bld) 5.5 % Normal () [facility] Comment on above: Order Comment: FACIL ITY: [facility] [id number] Performed By: #### C BC/D, BC/BCR, ESRCRP, ALT+, URCA #### [facility] [address] [facility], [address] Hematocrit (Bld) [Volume fraction] 34.3 % Low (42.0 - 52.0) [facility] Comment on above: Order Comment: FACIL ITY: [facility] [id number] Performed By: #### C BC/D, BC/BCR, ESRCRP, ALT+, URCA #### [facility] [address] [facility], [address] Hemoglobin (Bld) [Mass/Vol] 11.3 g/dL Low (14.0 - 18.0) [facility] Comment on above: Order Comment: FACIL ITY: [facility] [id number] Performed By: #### C BC/D, BC/BCR, ESRCRP, ALT+, URCA #### [facility] [address] [facility], [address] IMMATURE GRANS (IG) 0.2 % Normal () [facility] Comment on above: Order Comment: FACIL ITY: [facility] [id number] Performed By: #### C BC/D, BC/BCR, ESRCRP, ALT+, URCA #### [facility] [address] [facility], [address] LYMPS 34.4 % Normal () [facility] Comment on above: Order Comment: F[facility]IL [facility]: [facility] [id number] Performed By: #### C BC/D, BC/BCR, ESRCRP, ALT+, URCA #### [facility] [address] [facility], [address] MCH (RBC) [Entitic mass] 27.4 pg Normal (27.0 - 33.0) [facility] Comment on above: Order Comment: F[facility]IL [facility]: [facility] [id number] Performed By: #### C BC/D, BC/BCR, ESRCRP, ALT+, URCA #### [facility] [address] [facility], [address] MCHC (RBC) [Mass/Vol] 32.9 g/dL Normal (30.0 - 37.0) [facility] Comment on above: Order Comment: FACIL ITY: [facility] [id number] Performed By: #### C BC/D, BC/BCR, ESRCRP, ALT+, URCA #### [facility] [address] [facility], [address] MCV (RBC) [Entitic vol] 83.3 fL Normal (80.0 - 94.0) [facility] Comment on above: Order Comment: FACIL ITY: [facility] [id number] Performed By: #### C BC/D, BC/BCR, ESRCRP, ALT+, URCA #### [facility] [address] [facility], [address] MONOS 8.0 % Normal () [facility] Comment on above: Order Comment: FACIL ITY: [facility] [id number] Performed By: #### C BC/D, BC/BCR, ESRCRP, ALT+, URCA #### [facility] [address] [facility], [address] PLT 194 x10^3ul Normal (130 - 400) [facility] Comment on above: Order Comment: FACIL ITY: [facility] [id number] Performed By: #### C BC/D, BC/BCR, ESRCRP, ALT+, URCA #### [facility] [address] [facility], [address] RBC 4.12 x10^6ul Low (4.70 - 6.10) [facility] Comment on above: Order Comment: [facility]IL [facility]: [facility] [id number] Performed By: #### C BC/D, BC/BCR, ESRCRP, ALT+, URCA #### [facility] [address] [facility], [address] RDW-SD 42.0 fl Normal (37.0 - 49.0) [facility] Comment on above: Order Comment: F[facility]IL [facility]: [facility] [id number] Performed By: #### C BC/D, BC/BCR, ESRCRP, ALT+, URCA #### [facility] [address] [facility], [address] SEGS 51.1 % Normal () [facility] Comment on above: Order Comment: FACIL ITY: [facility] [id number] Performed By: #### C BC/D, BC/BCR, ESRCRP, ALT+, URCA #### [facility] [address] [facility], [address] WBC 5.24 x10^3ul Normal (3.80 - 10.60) [facility] Comment on above: Order Comment: FACIL ITY: [facility] [id number] Performed By: #### C BC/D, BC/BCR, ESRCRP, ALT+, URCA #### [facility] [address] [facility], [address] SED RATE - CRPon 01-25-2023 CRP EXTENDED RANGE 1.66 MG/L Normal (0.00 - 3.20) [facility] Comment on above: Performed By: #### C BC/D, BC/BCR, ESRCRP, ALT+, URCA #### [facility] [address] [facility], [address] SED RATE WEST. 10 MM/HR Normal (0 - 24) [place] [facility] Comment on above: Performed By: #### C BC/D, BC/BCR, ESRCRP, ALT+, URCA #### [facility] [address] [facility], [id number] URIC ACIDon 01-25-2023 Urate [Mass/Vol] 4.8 mg/dL Normal (3.5 - 8.5) [facility] Comment on above: Performed By: #### C BC/D, BC/BCR, ESRCRP, ALT+, URCA #### [facility] [address] [facility], [address] ALT (SGPT)/AST (SGOT)on 07-05 ALT [Catalytic activity/Vol] 30 U/L Normal (1 - 45) [facility] Comment on above: Performed By: #### C BC/D, BC/BCR, ESRCRP, ALT+, URCA #### [facility] [address] [facility], [address] AST [Catalytic activity/Vol] 31 U/L Normal (15 - 46) [facility] Comment on above: Performed By: #### C BC/D, BC/BCR, ESRCRP, ALT+, URCA #### [facility] [address] [facility], [address] BUN - CREATININE W/GFRon Creatinine [Mass/Vol] 0.77 mg/dL Normal (0.66 - 1.25) [facility] Comment on above: Performed By: #### C BC/D, BC/BCR, ESRCRP, ALT+, URCA #### [facility] [address] [facility], [address] GFR- AMER 122.7 ML/M1.7 Normal (60.0 - 161.8) [facility] Comment on above: Performed By: #### C BC/D, BC/BCR, ESRCRP, ALT+, URCA #### [facility] [address] [facility], [address] GFR-NON AFRIC-AMER 101.4 ML/M1.7 Normal (60.0 - 133.8) [facility] Comment on above: Performed By: #### C BC/D, BC/BCR, ESRCRP, ALT+, URCA #### [facility] [address] [facility], [address] Urea nitrogen [Mass/Vol] 14 mg/dL Normal (9 - 20) [facility] Comment on above: Performed By: #### C BC/D, BC/BCR, ESRCRP, ALT+, URCA #### [facility] [address] [facility], [address] Urea nitrogen/Creatini ne [Mass ratio] 18 mg/mg Normal (6 - 20) [facility] Comment on above: Performed By: #### C BC/D, BC/BCR, ESRCRP, ALT+, URCA #### [facility] [address] [facility], [address] CBC WITH DIFFon 07-28-2022 ABS BASOPHIL 0.06 x10^3ul Normal (0.00 - 0.16) [facility] Comment on above: Order Comment: FACIL ITY: [facility] [id number] Performed By: #### C BC/D, BC/BCR, ESRCRP, ALT+, URCA #### [facility] [address] [facility], [address] ABS EOSINOPHIL 0.25 x10^3ul Normal (0.00 - 0.40) [facility] Comment on above: Order Comment: FACIL ITY: [facility] [id number] Performed By: #### C BC/D, BC/BCR, ESRCRP, ALT+, URCA #### [facility] [address] [facility], [address] ABS IMMATURE GRANS 0.01 x10^3ul Normal (0.00 - 0.11) [facility] Comment on above: Order Comment: FACIL ITY: [facility] NWO [id number] Performed By: #### C BC/D, BC/BCR, ESRCRP, ALT+, URCA #### [facility] [address] [facility], [address] ABS LYMPHOCYTE 1.76 x10^3ul Normal (0.96 - 5.40) [facility] Comment on above: Order Comment: FACIL ITY: [facility] NWO [id number] Performed By: #### C BC/D, BC/BCR, ESRCRP, ALT+, URCA #### [facility] [address] [facility], [address] ABS MONOCYTE 0.49 x10^3ul Normal (0.10 - 1.00) [facility] Comment on above: Order Comment: FACIL ITY: [facility]WO [id number] Performed By: #### C BC/D, BC/BCR, ESRCRP, ALT+, URCA #### [facility] [address] [facility], [address] ABS NEUTROPHIL 1.65 x10^3ul Normal (1.50 - 7.00) [facility] Comment on above: Order Comment: FACIL ITY: [facility] O [id number] Performed By: #### C BC/D, BC/BCR, ESRCRP, ALT+, URCA #### [facility] [address] [facility], [address] Basophils/100 WBC (Bld) 1.4 % Normal () [facility] Comment on above: Order Comment: FACIL ITY: [facility]WO [id number] Performed By: #### C BC/D, BC/BCR, ESRCRP, ALT+, URCA #### [facility] [address] [facility], [address] Eosinophils/100 WBC (Bld) 5.9 % Normal () [facility] Comment on above: Order Comment: FACIL ITY: [facility] NWO [id number] Performed By: #### C BC/D, BC/BCR, ESRCRP, ALT+, URCA #### [facility] [address] [facility], [address] Hematocrit (Bld) [Volume fraction] 38.4 % Low (42.0 - 52.0) [facility] Comment on above: Order Comment: FACIL ITY: [facility] [id number] Performed By: #### C BC/D, BC/BCR, ESRCRP, ALT+, URCA #### [facility] [address] [facility], [address] Hemoglobin (Bld) [Mass/Vol] 12.5 g/dL Low (14.0 - 18.0) [facility] Comment on above: Order Comment: FACIL ITY: [facility] [id number] Performed By: #### C BC/D, BC/BCR, ESRCRP, ALT+, URCA #### [facility] [address] [facility], [address] IMMATURE GRANS (IG) 0.2 % Normal () [facility] Comment on above: Order Comment: FACIL ITY: [facility] [id number] Performed By: #### C BC/D, BC/BCR, ESRCRP, ALT+, URCA #### [facility] [address] [facility], [address] LYMPS 41.7 % Normal () [facility] Comment on above: Order Comment: FACIL ITY: [facility] [id number] Performed By: #### C BC/D, BC/BCR, ESRCRP, ALT+, URCA #### [facility] [address] [facility], [address] MCH (RBC) [Entitic mass] 26.5 pg Low (27.0 - 33.0) [facility] Comment on above: Order Comment: FACIL ITY: [facility] [id number] Performed By: #### C BC/D, BC/BCR, ESRCRP, ALT+, URCA #### [facility] [address] [facility], [address] MCHC (RBC) [Mass/Vol] 32.6 g/dL Normal (30.0 - 37.0) [facility] Comment on above: Order Comment: FACIL ITY: [facility] [id number] Performed By: #### C BC/D, BC/BCR, ESRCRP, ALT+, URCA #### [facility] [address] [facility], [address] MCV (RBC) [Entitic vol] 81.5 fL Normal (80.0 - 94.0) [facility] Comment on above: Order Comment: FACIL ITY: [facility] [id number] Performed By: #### C BC/D, BC/BCR, ESRCRP, ALT+, URCA #### [facility] [address] [facility], [address] MONOS 11.6 % Normal () [facility] Comment on above: Order Comment: FACIL ITY: [facility] [id number] Performed By: #### C BC/D, BC/BCR, ESRCRP, ALT+, URCA #### [facility] [address] [facility], [address] PLT 182 x10^3ul Normal (130 - 400) [facility] Comment on above: Order Comment: FACIL ITY: [facility] [id number] Performed By: #### C BC/D, BC/BCR, ESRCRP, ALT+, URCA #### [facility] [address] [facility], [address] RBC 4.71 x10^6ul Normal (4.70 - 6.10) [facility] Comment on above: Order Comment: FACIL ITY: [facility] [id number] Performed By: #### C BC/D, BC/BCR, ESRCRP, ALT+, URCA #### [facility] [address] [facility], [address] RDW-SD 39.8 fl Normal (37.0 - 49.0) [facility] Comment on above: Order Comment: FACIL ITY: [facility] [id number] Performed By: #### C BC/D, BC/BCR, ESRCRP, ALT+, URCA #### [facility] [address] [facility], [address] SEGS 39.2 % Normal () [facility] Comment on above: Order Comment: FACIL ITY: [facility] [id number] Performed By: #### C BC/D, BC/BCR, ESRCRP, ALT+, URCA #### [facility] [address] [facility], [address] WBC 4.22 x10^3ul Normal (3.80 - 10.60) [facility] Comment on above: Order Comment: FACIL ITY: [facility] [id number] Performed By: #### C BC/D, BC/BCR, ESRCRP, ALT+, URCA #### [facility] [address] [facility], [address] SED RATE - CRPon 07-28-2022 CRP EXTENDED RANGE 1.79 MG/L Normal (0.00 - 3.20) [facility] Comment on above: Performed By: #### C BC/D, BC/BCR, ESRCRP, ALT+, URCA #### [facility] [address] [facility], [address] SED RATE WEST. 19 MM/HR [facility] (0 - 24) [facility]: Performed By: #### C BC/D, BC/BCR, ESRCRP, ALT+, URCA #### [facility] [address] [facility], [address] URIC ACIDon 07-28-2022 Urate [Mass/Vol] 4.5 mg/dL Normal (3.5 - 8.5) [facility] Comment on above: Performed By: #### C BC/D, BC/BCR, ESRCRP, ALT+, URCA #### [facility] [address] [facility], [address] XR Elbow Complete Right*on XR Elbow Complete Right* FINDINGS: Minimal joint space loss, no joint effusion. Small olecranon spur. Linear calcifications along the lateral collateral ligament and distal triceps tendon insertion site. IMPRESSION: 1. Minimal arthritis, no fracture. Report reported and signed by Dhruv Linder on 01/21/2022 1434 Normal [facility] XR Wrist Complete Right*on XR Wrist Complete Right* FINDINGS: Normal carpal bone alignment. Minimal osseous arthritic changes. Triangulofibrocartilage calcifications and along the intercarpal and radial carpal rows. No acute fracture. IMPRESSION: 1. Minimal arthritis. 2. Chondrocalcinosis. Report reported and signed by Dhruv Linder on 01/21/2022 1432 Normal [facility] US RUQon 05-23-2021 US RUQ FINDINGS: Comparison made with prior exam one year earlier, April 10, 2020. The liver is without worrisome mass lesions or biliary dilatation. No neighboring ascites is present. The common bile duct is not dilated, 6 mm. in greatest dimension. The gallbladder is upper limits normal in size, minimally changed from one year earlier, without echogenic foci or wall thickening. No pericholecystic fluid is present. The pancreas and right kidney are grossly normal. IMPRESSION: 1. No evidence of acute cholecystitis or biliary obstruction 2. Increased gallbladder volume, unchanged from one year earlier Report reported and signed by Dhruv Linder on 05/23/2021 1059 Normal [facility] AMYLASEon 05-18-2021 Amylase [Catalytic activity/Vol] 48 U/L Normal 31-110 [facility] Comment on above: Performed By: #### B FLUTE POLISHER, LEILA, HSTROPN, CMP, LIPA #### [facility] [address] [address] [address] Rivera Sam BNPon 05-18-2021 Natriuretic peptide B (Bld) [Mass/Vol] 65.0 pg/mL Normal <=900.0 [facility] Comment on above: Performed By: #### B FLUTE POLISHER, LEILA, HSTROPN, CMP, LIPA #### [facility] [address] [place] [address] Dr. Rivera Sam CBC AUTO DIFFon 05-18-2021 BASO # 0.0 103/ul Normal 0.0-0.1 [facility] Comment on above: Performed By: #### B FLUTE POLISHER, LEILA, HSTROPN, CMP, LIPA #### [facility] [address] [place] [address] Dr. Rivera Sam Basophils/100 WBC (Bld) 0.6 % Normal 0.2-2.0 [facility] Comment on above: Performed By: #### B FLUTE POLISHER, LEILA, HSTROPN, CMP, LIPA #### [facility] [address] [place] [address] Dr. Rivera Sam EO # 0.0 103/ul Normal 0.0-0.7 [facility] Comment on above: Performed By: #### B FLUTE POLISHER, LEILA, HSTROPN, CMP, LIPA #### [facility] [address] [place] [address] Dr. Rivera Sam Eosinophils/100 WBC (Bld) 0.6 % Critically low 0.9-7.0 [facility] Comment on above: Performed By: #### B FLUTE POLISHER, LEILA, HSTROPN, CMP, LIPA #### [facility] [address] [place] [address] Dr. Rivera Sam Erythrocyte distribution width (RBC) [Ratio] 13.6 % Normal 11.0-15.0 [facility] Comment on above: Performed By: #### B FLUTE POLISHER, LEILA, HSTROPN, CMP, LIPA #### [facility] [address] [place] [address] Dr. Rivera Sam Hematocrit (Bld) [Volume fraction] 38.1 % Critically low 42.0-54.0 [facility] Comment on above: Performed By: #### B FLUTE POLISHER, LEILA, HSTROPN, CMP, LIPA #### [facility] [address] [place] [address] Dr. Rivera Sam Hemoglobin (Bld) [Mass/Vol] 12.8 g/dL Critically low 14.0-18.0 [facility] Comment on above: Performed By: #### B FLUTE POLISHER, LEILA, HSTROPN, CMP, LIPA #### [facility] [address] [place] [address] Dr. Rivera Sam IG # 0.01 10e3/ul Normal 0.00-0.03 [facility] Comment on above: Performed By: #### B FLUTE POLISHER, LEILA, HSTROPN, CMP, LIPA #### [facility] [address] [place] [address] Dr. Rivera Sam IG % 0.2 % Normal 0.0-0.5 [facility] Comment on above: Performed By: #### B FLUTE POLISHER, LEILA, HSTROPN, CMP, LIPA #### [facility] [address] [place] [address] Dr. Rivera Sam LYMPH # 1.1 103/ul Critically low 1.2-3.8 [facility] Comment on above: Performed By: #### B FLUTE POLISHER, LEILA, HSTROPN, CMP, LIPA #### [facility] [address] [place] [address] Dr. Rivera Sam Lymphocytes/100 WBC (Bld) 16.8 % Critically low 20.5-60.0 [facility] Comment on above: Performed By: #### B FLUTE POLISHER, LEILA, HSTROPN, CMP, LIPA #### [facility] [address] [place] [address] Dr. Rivera Sam MANUAL DIFF REQ NO Normal [facility] Comment on above: Performed By: #### B FLUTE POLISHER, LEILA, HSTROPN, CMP, LIPA #### [facility] [address] [place] [address] Dr. Rivera Sam MCH (RBC) [Entitic mass] 27.1 pg Normal 25.9-34.0 [facility] Comment on above: Performed By: #### B FLUTE POLISHER, LEILA, HSTROPN, CMP, LIPA #### [facility] [address] [place] [address] Dr. Rivera Sam MCHC (RBC) [Mass/Vol] 33.6 g/dL Normal 29.9-35.2 [facility] Comment on above: Performed By: #### B FLUTE POLISHER, LEILA, HSTROPN, CMP, LIPA #### [facility] [address] [place] [address] Dr. Rivera Sam MCV (RBC) [Entitic vol] 80.7 fL Normal 80.0-94.0 [facility] Comment on above: Performed By: #### B FLUTE POLISHER, LEILA, HSTROPN, CMP, LIPA #### [facility] [address] [place] [address] Dr. Rivera Sam MONO # 0.6 103/ul Normal 0.3-0.8 [facility] Comment on above: Performed By: #### B FLUTE POLISHER, LEILA, HSTROPN, CMP, LIPA #### [facility] [address] [place] [address] Dr. Rivera Sam Monocytes/100 WBC (Bld) 8.3 % Normal 1.7-12.0 [facility] Comment on above: Performed By: #### B FLUTE POLISHER, LEILA, HSTROPN, CMP, LIPA #### [facility] [address] [place] [address] Dr. Rivera Sam NEUT # 4.9 103/ul Normal 1.4-6.5 [facility] Comment on above: Performed By: #### B FLUTE POLISHER, LEILA, HSTROPN, CMP, LIPA #### [facility] [address] [place] [address] Dr. Rivera Sam Neutrophils/100 WBC (Bld) 73.5 % Normal 43.0-75.0 [facility] Comment on above: Performed By: #### B FLUTE POLISHER, LEILA, HSTROPN, CMP, LIPA #### [facility] [address] [place] [address] Dr. Rivera Sam Platelet mean volume (Bld) [Entitic vol] 10.0 fL Normal 9.5-13.5 [facility] Comment on above: Performed By: #### B FLUTE POLISHER, LEILA, HSTROPN, CMP, LIPA #### [facility] [address] [place], [place] [address] Dr. Rivera Sma PLT 194 103/ul Normal 150-450 [facility] Comment on above: Performed By: #### B FLUTE POLISHER, LEILA, HSTROPN, CMP, LIPA #### [facility] [address] [place], [place] [address] Dr. Rivera Sam RBC 4.72 106/ul Normal 4.70-6.10 [facility] Comment on above: Performed By: #### B FLUTE POLISHER, LEILA, HSTROPN, CMP, LIPA #### [facility] [address] [place], [place] [address] Dr. Rivera Sam WBC 6.7 103/ul Normal 4.0-11.0 [facility] Comment on above: Performed By: #### B FLUTE POLISHER, LEILA, HSTROPN, CMP, LIPA #### [facility] [address] [place], [place] [address] ABD/PELV W CONon 05-18-[address] ABD/PELV W CON EXAMINATION: CT ABD/ PELV W CON HISTORY: UNSPECIFIED ABDOMINAL PAIN COMPARISON: Same day chest radiograph. TECHNIQUE: CT of the abdomen/pelvis with intravenous contrast. Additional delayed images to the lower pelvis. Dose reduction techniques were achieved by using automated exposure control and/or adjustment of mA and/or kV according to patient size and/or use of iterative reconstruction technique. FINDINGS: Home Health Provider: No pertinent findings, which are not already discussed below. Tubes/lines/drains: None. CHEST: Lungs: Solid 4 mm subpleural nodule within the anterior basilar right middle lobe. Adjacent triangular shaped subpleural lymph node. Cardiac and vascular: No cardiomegaly or significant pericardial effusion. ABDOMEN: Liver: Unremarkable. Gallbladder and Biliary Tree: Unremarkable. Spleen: Unremarkable. Pancreas: Unremarkable. Adrenal Glands: Unremarkable. Kidneys, Ureters, Bladder: Benign-appearing subcentimeter cortical hypodensities. No concerning renal lesions or masses. No urolithiasis. No hydronephrosis or hydroureterosis. Unremarkable bladder. Gastrointestinal: No mural thickening or inflammatory changes. No dilated loops of small or large bowel. Normal appendix. Reproductive organ(s): Unremarkable. Lymphatic: No concerning retroperitoneal, mesenteric, or inguinal adenopathy. Vessels: Scattered atherosclerotic calcifications. BONES AND SOFT TISSUE: Bones: No acute fracture. No concerning osseous lesions. Degenerative changes of the spine with degenerative grade 1 anterolisthesis of L4 on L5. Soft Tissue: Within normal limits. IMPRESSION: 1. No acute intra-abdominal/pelvic findings. 2. Solid right middle lobe pulmonary nodule, 4 mm. If this patient is considered high risk, consider follow-up CT chest in 12 months Electronically authenticated by: JERAMIE LARA Date: 2021-05-18 11:02 Normal [facility] Covid-19 PCR (CVDTBH)on 05-06 SARS-CoV-2 (COVID-19) RNA LONNIE+probe Ql (Unsp spec) Not detected Normal NOT DETECTED [facility] Comment on above: Result Comment: When diagnostic testing is negative, the possibility of a false negative should be considered in the context of a patient's recent exposures and the presence of clinical signs and symptoms consistent with SARS-CoV-2. This test is not yet approved or cleared by the [place] Food and Drug Administration (FDA). This test was developed by [employer], [place], [place]. The performance characteristics of this test were validated by [facility]. The results are not intended to be used as the sole means for clinical diagnosis or patient management decisions. [facility] is authorized under Clinical Laboratory Improvement Amendments (CLIA) to perform high- complexity testing. This test is not yet approved or cleared by the [place] FDA. When there are no FDA-approved or cleared tests available, and other criteria are met, FDA can make tests available under an emergency access mechanism called an Emergency Use Authorization (EUA). The EUA for this test is supported by the [employer] of Health and Human Service's declaration that circumstances exist to justify the emergency use of in vitro diagnostics for the detection and/or diagnosis of the virus that causes COVID-19. This EUA will remain in effect for the duration of the COVID-19 declaration justifying emergency of IVDs, unless it is terminated or revoked by the FDA (after which the test may no longer be used). Performed By: #### B FLUTE POLISHER, LEILA, HSTROPN, CMP, LIPA #### [facility] [address] [place] [address] Dr. Rivera Sam ER URINE PROFILEon 2 Bilirubin Ql (U) Negative Normal NEGATIVE [facility] Comment on above: Performed By: #### E RUR #### [facility] [address] [place] [address] Dr. Rivera Sam Clarity (U) CLEAR Normal CLEAR [facility] Comment on above: Performed By: #### E RUR #### [facility] [address] [place] [address] Dr. Rivera Sam Color (U) LT. YELLOW Normal YELLOW [facility] Comment on above: Performed By: #### E RUR #### [facility] [address] [place] [address] Dr. Rivera BROWN A micrscopic examina tion will be performed if indicated. Normal [facility] Comment on above: Performed By: #### E RUR #### [facility] [address] [place] [address] Dr. Rivera Sam Glucose Ql (U) Negative Normal NEGATIVE [facility] Comment on above: Performed By: #### E RUR #### [facility] [address] [place] [address] Dr. Rivera Sam Hemoglobin Ql (U) Negative Normal NEGATIVE [facility] Comment on above: Performed By: #### E RUR #### [facility] [address] [place] [address] Dr. Rivera Sam Ketones Ql (U) 40 mg/dl Abnormal NEGATIVE [facility] Comment on above: Performed By: #### E RUR #### [facility] [address] [place] [address] Dr. Rivera Sam LEUKOCYTES Negative Normal NEGATIVE [facility] Comment on above: Performed By: #### E RUR #### [facility] [address] [place] [address] Dr. Rivera Sam Nitrite Ql (U) Negative Normal NEGATIVE [facility] Comment on above: Performed By: #### E RUR #### [facility] [address] [place] [address] Dr. Rivera Sam pH (U) 7.5 [pH] Normal 5-9 [facility] Comment on above: Performed By: #### E RUR #### [facility] [address] [place] [address] Dr. Rivera Sam SPEC GRAVITY 1.015 Normal 1.005-<=1.02 5 [facility] Comment on above: Performed By: #### E RUR #### [facility] [address] [place] [address] Dr. Rivera Sam UA PROTEIN TRACE Normal NEGATIVE/ TRACE [facility] Comment on above: Performed By: #### E RUR #### [facility] [address] [place] [address] Dr. Rivera Sam UR MICRO IND NOT INDICATED Normal [facility] Comment on above: Performed By: #### E RUR #### [facility] [address] [place] [address] Dr. Rivera Sam Urobilinogen Qn (U) 0.2 {Ирина'U}/dL Normal 0.2 - 1.0 [facility] Comment on above: Performed By: #### E RUR #### [facility] [address] [place] [address] Dr. Rivera Sam LIPASEon 05-18-2021 Lipase [Catalytic activity/Vol] 70.0 U/L Normal 23.0-300.0 [facility] Comment on above: Performed By: #### B FLUTE POLISHER, LEILA, HSTROPN, CMP, LIPA #### [facility] [address] [place] [address] Dr. Rivera Sam PROF 14(COMP METB)on 022 Albumin [Mass/Vol] 4.5 g/dL Normal 3.5-5.0 [facility] Comment on above: Performed By: #### B FLUTE POLISHER, LEILA, HSTROPN, CMP, LIPA #### [facility] [address] [place] [address] Dr. Rivera Sam Albumin/Globulin [Mass ratio] 1.1 {ratio} Normal [facility] Comment on above: Performed By: #### B FLUTE POLISHER, LEILA, HSTROPN, CMP, LIPA #### [facility] [address] [place] [address] Dr. Rivera Sam ALP [Catalytic activity/Vol] 106 U/L Normal 38-126 [facility] Comment on above: Performed By: #### B FLUTE POLISHER, LEILA, HSTROPN, CMP, LIPA #### [facility] [address] [place] [address] Dr. Rivera Sam ALT [Catalytic activity/Vol] 25 U/L Normal 21-72 [facility] Comment on above: Performed By: #### B FLUTE POLISHER, LEILA, HSTROPN, CMP, LIPA #### [facility] [address] [place] [address] Dr. Rivera Sam Anion gap [Moles/Vol] 12.9 mmol/L Normal [facility] Comment on above: Performed By: #### B FLUTE POLISHER, LEILA, HSTROPN, CMP, LIPA #### [facility] [address] [place] [address] Dr. Rivera Sam AST [Catalytic activity/Vol] 20 U/L Normal 17-59 [facility] Comment on above: Performed By: #### B FLUTE POLISHER, LEILA, HSTROPN, CMP, LIPA #### [facility] [address] [place] [address] Dr. Rivera Sam Bilirubin [Mass/Vol] 0.7 mg/dL Normal 0.2-1.3 [facility] Comment on above: Performed By: #### B FLUTE POLISHER, LEILA, HSTROPN, CMP, LIPA #### [facility] [address] [place] [address] Dr. Rivera Sam Calcium [Mass/Vol] 9.3 mg/dL Normal 8.4-10.2 [facility] Comment on above: Performed By: #### B FLUTE POLISHER, LEILA, HSTROPN, CMP, LIPA #### [facility] [address] [place] [address] Dr. Rivera Sam Chloride [Moles/Vol] 99 mmol/L Normal 98-107 [facility] Comment on above: Performed By: #### B FLUTE POLISHER, LEILA, HSTROPN, CMP, LIPA #### [facility] [address] [address] [address] Rivera Sam CO2 [Moles/Vol] 30.2 mmol/L Critically high 22.0-30.0 [facility] Comment on above: Performed By: #### B FLUTE POLISHER, LEILA, HSTROPN, CMP, LIPA #### [facility] [address] [place] [address] Dr. Rivera Sam Creatinine [Mass/Vol] 0.56 mg/dL Critically low 0.66-1.25 [facility] Comment on above: Performed By: #### B FLUTE POLISHER, LEILA, HSTROPN, CMP, LIPA #### [facility] [address] [place] [address] Dr. Rivera Sam EGFR-AF CITIZEN [place] >60 Normal >=60 [facility] Comment on above: Performed By: #### B FLUTE POLISHER, LEILA, HSTROPN, CMP, LIPA #### [facility] [address] [place] [address] Dr. Rivera Sam EGFR-NON AF CITIZEN OF [place] >60 Normal >=60 [facility] Comment on above: Performed By: #### B FLUTE POLISHER, LEILA, HSTROPN, CMP, LIPA #### [facility] [address] [place] [address] Dr. Rivera Sam Globulin (S) [Mass/Vol] 4.1 g/dL Normal [facility] Comment on above: Performed By: #### B FLUTE POLISHER, LEILA, HSTROPN, CMP, LIPA #### [facility] [address] [place] [address] Dr. Rivera Sam Glucose [Mass/Vol] 155 mg/dL Critically high 74-106 [facility] Comment on above: Performed By: #### B FLUTE POLISHER, LEILA, HSTROPN, CMP, LIPA #### [facility] [address] [place] [address] Dr. Rivera Sam Potassium [Moles/Vol] 3.1 mmol/L Critically low 3.4-5.0 [facility] Comment on above: Performed By: #### B FLUTE POLISHER, LEILA, HSTROPN, CMP, LIPA #### [facility] [address] [place] [address] Dr. Rivera Sam Protein [Mass/Vol] 8.6 g/dL Critically high 6.1-8.2 [facility] Comment on above: Performed By: #### B FLUTE POLISHER, LEILA, HSTROPN, CMP, LIPA #### [facility] [address] [place] [address] Dr. Rivera Sam Sodium [Moles/Vol] 139 mmol/L Normal 137-145 [facility] Comment on above: Performed By: #### B FLUTE POLISHER, LEILA, HSTROPN, CMP, LIPA #### [facility] [address] [place] [address] Dr. Rivera Sam Urea nitrogen [Mass/Vol] 14.0 mg/dL Normal 9.0-20.0 [facility] Comment on above: Performed By: #### B FLUTE POLISHER, LEILA, HSTROPN, CMP, LIPA #### [facility] [address] [place] [address] Dr. Rivera Sam Urea nitrogen/Creatini ne [Mass ratio] 25.0 mg/mg Normal [facility] Comment on above: Performed By: #### B FLUTE POLISHER, LEILA, HSTROPN, CMP, LIPA #### [facility] [address] [place] [address] Dr. Rivera Sam PROTIMEon 05-18-2021 INR Coag (PPP) [Relative time] 0.98 {INR} Normal [facility] Comment on above: Performed By: #### P TT, PT #### [facility] [address] [place] [address] Dr. Rivera Sam INR GUIDELINES SEE BELOW Normal [facility] Comment on above: Result Comment: KINJAL RED INR: 2.0 - 3.0 CONDITIONS NOT LISTED BELOW 2.5 - 3.5 FOR PROSTHETIC HEART VALVE REPLACEMENT 2.5 - 3.5 RECURRENT THROMBOSIS Performed By: #### P TT, PT #### [facility] [address] [place] [address] Dr. Rivera Sam PT Coag (PPP) [Time] 10.6 s Normal 9.0-11.6 [facility] Comment on above: Performed By: #### P TT, PT #### [facility] [address] [address] [address] Rivera Sam PTTon 05-18-2021 aPTT Coag (Bld) [Time] 32.5 s Normal 22.3-36.2 [facility] Comment on above: Performed By: #### P TT, PT #### [facility] [address] [address] [address] Rivera Sam TROPONIN, HIGH SENSITIVITYon 05-18-2021 HSTROP 7.3 pg/mL Normal 4.0-42.2 [facility] Comment on above: Result Comment: CUT- OFF POINTS HAVE BEEN ESTABLISHED BASED ON THE FOURTH UNIVERSAL DEFINITIONS OF MYOCARDIAL INFARCTION. THE UPPER REFERENCE LIMIT (URL) OF TROPONIN, DEFINED THE 99TH PERCENTILE OF cTnI DISTRIBUTION IN A REFERENCE POPULATION, HAS BEEN CONFIRMED THE DECISION THRESHOLD FOR PR DIAGNOSIS. Performed By: #### B FLUTE POLISHER, LEILA, HSTROPN, CMP, LIPA #### [facility] [address] [place] [address] Dr. Rivera Sam XR CHEST 1 Von 05-18-2021 XR CHEST 1 V EXAM: XR CHEST 1 V HISTORY: NAUSEA WITH VOMITING, UNSPECIFIED COMPARISON: None. TECHNIQUE: Portable AP chest 0844 hours FINDINGS: Cardiac silhouette is normal. There is pulmonary venous hypertension with nonspecific peribronchial thickening in both lungs. No airspace consolidation, pleural effusion or pneumothorax. IMPRESSION: No acute findings are evident Electronically authenticated by: DANISH PAN Date: 2021-05-18 09:05 Normal [facility] Vital Signs Date Time Vital Sign Value Performing Clinician Facility 01-07-2023 11:30-0400 Body height 187.96 cm Esther Cummingsblaire Other [facility] Other 01-07-2023 11:30-0400 Body mass index (BMI) [Ratio] 24.26 kg/m2 Esther Koffi Other [facility] Other 01-07-2023 11:30-0400 Body temperature 97.3 [degF] Esther Rain Other [facility] Other 01-07-2023 11:30-0400 Body weight 85.73 kg Esther Rain Other [facility] Other 01-07-2023 11:30-0400 Diastolic blood pressure 66 mm[Hg] Esther Rain Other [facility] Other 01-07-2023 11:30-0400 SaO2% (BldA) [Mass fraction] 98 % Esther Rain Other [facility] Other 01-07-2023 11:30-0400 Systolic blood pressure 116 mm[Hg] Esther Rain Other [facility] Other 05-01-2021 11:15-0500 Body height 187.96 cm Wilfredo Colon Other [facility] Other 05-01-2021 11:15-0500 Body mass index (BMI) [Ratio] 37.1 kg/m2 Wilfredo Colon Other [facility] Other 05-01-2021 11:15-0500 Body temperature 97.1 [degF] Wilfredo Colon Other [facility] Other 05-01-2021 11:15-0500 Body weight 131.09 kg Wilfredo Colon Other [facility] Other 05-01-2021 11:15-0500 Diastolic blood pressure 80 mm[Hg] Wilfredo Colon Other [facility] Other 05-01-2021 11:15-0500 SaO2% (BldA) [Mass fraction] 97 % Wilfredo Colon Other [facility] Other 05-01-2021 11:15-0500 Systolic blood pressure 120 mm[Hg] Wilfredo Colon Other [facility] Other Encounters Encounter Date Encounter Type Care Provider Facility Start: 08-23-2023 End: 08-23-2023 ambulatory STEPHANY NOGUEIRA Not Available Start: 05-11-2023 End: 05-11-2023 ambulatory EMILY ESCUDERO Not Available Start: 03-15-2023 End: 03-16-2023 ambulatory KATRINCESAR GARCIA Not Available Start: 01-07-2023 End: 01-07-2023 ambulatory Esther Rain Other [facility] Other Start: 01-07-2023 Patient encounter procedure Esther Koffi [facility] Start: 12-24-2022 End: 12-24-2022 ambulatory Esther Koffi Other [facility] Other Start: 12-24-2022 Telephone encounter Esther Cummingsblaire [facility] Start: 02-24-2022 End: 02-24-2022 ambulatory Esther Koffi Other [facility] Other Start: 02-24-2022 Telephone encounter Esther Cummingsblaire [facility] Start: 01-29-2022 End: 01-29-2022 ambulatory Esther Cummingsmlfrederick Other [facility] Other Start: 01-29-2022 Telephone encounter Esther Cummingsmlfrederick [facility] Start: 05-18-2021 End: 05-18-2021 ambulatory FLAQUITO FERNANDEZ Facility: Start: 05-01-2021 End: 05-01-2021 ambulatory Wilfredo Colon Other [facility] Other Start: 05-01-2021 Office outpatient visit 15 minutes Wilfredo Colon [facility] Start: 05-13-2020 End: 05-14-2020 ambulatory Pop Cm Facility:[facility] Immunizations Immunization Date Immunization Notes Care Provider Fa marlenety 05-06-2015 influenza, seasonal, injectable Wilfredo Colon Other [facility] Other Payers Date Payer Category Payer Unknown [id number] 2022 Unknown [id number] 2020 Self-pay [id number] 1957 Unknown [id number] 1955 Unknown [id number] 1955 Unknown [id number] 2.16.84 [id number] 1955 Unknown [id number] 2.16.84 [id number] 1955 Unknown [id number] Unknown [id number] 2.16.8 [id number] Social History Date Type Detail Facility Unknown if ever smoked [facility] Other Sex Assigned At Sex Assigned At Bir th [facility] Other Start: 1955 Sex Assigned At Male F [facility] Evaluation note 01-07-2023 Note Date & Type Note Facility 01-07-2023 Evaluation note Encounter Date Diagnosis Assessment Notes Jan, Symptomatic varicose veins of both lower extremities (ICD-10 - I83.893) Jan, Venous insufficiency (ICD-10 - I87.2) Jan, Bilateral lower extremity edema (ICD-10 - R60.0) Jan, History of venous stasis ulcer of lower extremity (ICD-10 - Z86.79) Jan, Other This patient has known chronic venous insufficiency with multiple previous venous interventions in the past. He wears his compression stockings faithfully. He does have a history of venous ulceration. He came today due to concern with worsening appearance of bulging varicosity on the left lower leg. He denied any additional symptoms other than the increase in size of the vein. We discussed the chronic and progressive nature of venous disease and the ongoing importance of conservative therapy efforts. He is very good about wearing his compression stockings and he is taking good care of his skin and it is well moisturized. He could work on some weight loss but otherwise he is doing well. We discussed treatment of the bulging secondary varicosity with Varithena foam as well as talking about continued conservative therapy efforts. For now as it is not symptomatic for him, he would like to continue conservative therapy efforts going forward. He knows to call us with any questions or concerns in the future. We will continue to follow him on an as-needed basis. [facility] Other Evaluation note 12-24-2022 Note Date & Type Note Facility 12-24-2022 Evaluation note Encounter Date Diagnosis Assessment Notes Dec, Symptomatic varicose veins of both lower extremities (ICD-10 - I83.893) [facility] Other Evaluation note 05-01-2021 Note Date & Type Note Facility 05-01-2021 Evaluation note Encounter Date Diagnosis Assessment Notes Apr, Symptomatic varicose veins of both lower extremities (ICD-10 - I83.893) Apr, Venous insufficiency (chronic) (peripheral) (ICD-10 - I87.2) This patient has deep valvular incompetence which is causing some of his symptoms symptomatic varicose veins. I am not concerned about the discoloration. Some of them looks like bruises. Those will of course go away with time. The remainder of the discoloration appears to be hemosiderin deposition in the gaiter distribution this is permanent. This patient is doing a very good job of treating his venous insufficiency and symptomatic varicose veins. I suggest he also add healthy diet and exercise and weight loss. This will certainly help. I will see him as needed in the future and all his questions were addressed. He is agreeable to this plan. I did go through a venous insufficiency handout with him page by page today. [facility] Other Evaluation note Note Date & Type Note Facility Evaluation note No Information [facility] Other Evaluation note Note Date & Type Note Facility Evaluation note No assessment information availa [facility] Work Phone: History general Narrative - Reported Note Date & Type Note Facility History general Narrative - Reported Type Medical History arthritis Medical History hyperlipidemia Medical History hypertension Medical History h/o renal failure Medical History low back pain Medical History herpes Surgical History right knee arthroscopy Surgical History bilateral LE vein st ripping in Surgical History Jonathan LE EVLT's (endov enous laser ablation) and sclerotherapies Surgical History knee replacement Rt 2012 Surgical History Lt knee replacement 03/2017 Hospitalization History SEE ABOVE [facility] Other Summary Purpose Family History No Family History Records Found Relationship Condition Age at Onset Recorded Date/T neptali Not Specified No pertinent family history Unknown Not Specified Anemia Unknown sister Anemia Unknown brother Malignant neoplasm of prostate Unknown brother Rich's palsy Unknown Advance Directives No Advanced Directives Records FoundNo Advanced Directives Records FoundNo Advanced Directives Records FoundNo Advanced Directives Records FoundNo Advanced Directives Records Found Additional Source Comments (unrecognized sect ion and content) No Status Records FoundNo Status Records FoundNo Status Records FoundNo Status Records FoundNo Status Records Found INFORMATION SOURCE (unrecogn ized section and content) DATE CREATED AUTHOR 05/23/2021 [facility] DATE CREATED AUTHOR AUTHOR'S ORGANIZ ATION 01/26/2022 [facility] DATE CREATED AUTHOR AUTHOR'S ORGANIZ ATION 12/05/2022 [facility] DATE CREATED AUTHOR AUTHOR'S ORGANIZ ATION 06/05/2023 [facility] DATE CREATED AUTHOR AUTHOR'S ORGANIZ ATION 08/25/2023 [facility] EPIC REASON FOR VISIT (unrecogniz ed section and content) BLACK SPOTS ON JONATHAN LEGS FORM ER DR Webb PTCompression Stocking Refillstockingscompression stockingslt leg swelling and discoloration Goals (unrecognized section and content) Goals may be documented in a n alternate section FOR RECORDS PERTAINING TO PATIENTS WHO ARE OR HAVE BEEN ENROLLED IN A CHEMICAL DEPENDENCY/SUBSTANCEABUSE PROGRAM, SOME INFORMATION MAY BE OMITTED. This clinical summary was aggregated from multiple sources. Caution should be exercised in using it in the provision of clinical care. This summary normalizes information from multiple sources, and as a consequence, information in this document may materially change the coding, format and clinical context of patient data. In addition, data may be omitted in some cases. CLINICAL DECISIONS SHOULD BE BASED ON THE PRIMARY CLINICAL RECORDS. [facility] [employer] provides no warranty or guarantee of the accuracy or completeness of information in this document.
--- NOTE | 2023-09-05 22:11 | CT_ITS ---
The [address] [place], [place] [address] Patient Name: MARK THOMAS MRN: [id number] date: 1955 Sex: M Assigned Patient Location: ER Current Patient Location: ER Accession/Order Number: [id number] Exam Date: 09/05/2023 23:20 Report Date: 09/05/2023 23:57 At the request of: JULIO C SMITH Procedure: CT abdomen pelvis w con EXAM: CT abdomen pelvis w con HISTORY: Diffuse abdominal pain, all day COMPARISON: CT abdomen pelvis, 03/15/2023. TECHNIQUE: IV contrast enhanced CT imaging of the abdomen and pelvis was performed using 99 mL of Omnipaque 300 intravenous contrast. Sagittal and coronal reconstructions are provided. Dose reduction techniques were achieved by using automated exposure control and/or adjustment of mA and/or kV according to patient size and/or use of iterative reconstruction technique. FINDINGS: CT ABDOMEN: The lung bases appear clear. The imaged heart appears unremarkable. The liver is mildly enlarged but otherwise unremarkable. The gallbladder, pancreas, spleen, adrenal glands, kidneys, stomach and small bowel appear within normal limits. There are mild aortic calcifications without aneurysm or dissection. The IVC appears normal. A normal appendix is seen on images 86-105. The pelvic small bowel loops, colon, prostate and urinary bladder appear unremarkable. No inflammatory fat stranding, free fluid, loculated fluid or free air is seen in the abdomen or pelvis. Multilevel spinal degenerative changes are noted. No acute osseous abnormality or suspicious bony lesion is seen. CT/CT abdomen pelvis w con IMPRESSION: 1. No acute diagnostic abnormality in the abdomen or pelvis. 2. Mild hepatomegaly. Electronically authenticated by: ZAY PENA Date: 09/05/2023 23:57
--- NOTE | 2023-09-05 22:11 | ED.ABDPAIN1 ---
HPI - Abdominal Pain General Chief Complaint: Abdominal Pain Stated Complaint: Abdominal Pain Time Seen by Provider: 09/05/23 22:02 Source: patient Mode of arrival: walk-in Limitations: no limitations History of Present Illness HPI narrative: 68-year-old male presents for abdominal pain. It began this morning and it has been there all day. It is moderate and continuous and he vomited. No trauma or fever or constipation or diarrhea. He states he has had pain like this previously but nothing was ever found. Related Data Home Medications ?Medication ?Instructions ?Recorded ?Confirmed allopurinol 100 mg tablet 100 mg PO DAILY 09/05/23 09/05/23 amlodipine 10 mg tablet 10 mg PO DAILY 09/05/23 09/05/23 atorvastatin 10 mg tablet 10 mg PO DAILY 09/05/23 09/05/23 carvedilol 25 mg tablet 25 mg PO BID 09/05/23 09/05/23 furosemide 40 mg tablet 40 mg PO DAILY 09/05/23 09/05/23 gabapentin 300 mg capsule 300 mg PO DAILY 09/05/23 09/05/23 losartan 100 1 tab PO DAILY 09/05/23 09/05/23 mg-hydrochlorothiazide 25 mg tablet meloxicam 7.5 mg tablet 7.5 mg PO DAILY 09/05/23 09/05/23 tizanidine 4 mg tablet 4 mg PO Q8H PRN muscle spasticity 09/05/23 09/05/23 Previous Rx's ?Medication ?Instructions ?Recorded potassium chloride 20 mEq 20 meq PO BID #6 tabs 03/15/23 tablet,extended release dicyclomine 10 mg capsule 10 mg PO QID PRN abdominal pain 09/06/23 #20 caps ondansetron 4 mg disintegrating 4 mg PO Q6H PRN nausea and 09/06/23 tablet vomiting #20 tabs Allergies Allergy/AdvReac Type Severity Reaction Status Date / Time No Known Drug Allergies Allergy Verified 09/05/23 22:00 Review of Systems ROS Narrative A ten point review of systems is negative except as noted above. PFSH PFSH Social History Smoking status: Former smoker Exam Narrative Exam Narrative: Nurses note and vital signs reviewed and patient is not hypoxic. General: The patient appears uncomfortable Skin: Warm, dry, no pallor noted. There is no rash noted. Head: Normocephalic, atraumatic Eye: Normal conjunctiva, no drainage Ears, Nose, Mouth, and Throat: oral mucosa is moist. Nares patent. Cardiovascular: Regular Rate and Rhythm Respiratory: Patient is in no distress, no accessory muscle use, lungs are clear to auscultation, no wheezing, rales or rhonchi Back: non-tender GI: Obese and nondistended. Mild diffuse tenderness. No masses. Musculoskeletal: The patient has no evidence of calf tenderness, no pitting edema, symmetrical pulses noted bilaterally Neurological: A&O, normal speech Psychiatric: Cooperative Constitutional Vital Signs, click to edit/add: Last Vital Signs Temp 97.8 F 09/05/23 22:00 Pulse 88 09/05/23 23:34 Resp 20 09/05/23 23:34 BP 128/65 09/05/23 22:00 Pulse Ox 96 09/05/23 23:34 O2 Del Method Room Air 09/05/23 23:34 Course Vital Signs Vital signs: Vital Signs Temperature 97.8 F 09/05/23 22:00 Pulse Rate 83 09/05/23 22:00 Respiratory Rate 18 09/05/23 22:00 Blood Pressure 128/65 09/05/23 22:00 Pulse Oximetry 96 09/05/23 22:00 Oxygen Delivery Method Room Air 09/05/23 22:00 Temperature 97.8 F 09/05/23 22:00 Pulse Rate 88 09/05/23 23:34 Respiratory Rate 20 09/05/23 23:34 Blood Pressure 128/65 09/05/23 22:00 Pulse Oximetry 96 09/05/23 23:34 Oxygen Delivery Method Room Air 09/05/23 23:34 MDM - Abdominal Pain MDM Narrative Medical decision making narrative: His workup including CAT scan of the abdomen is negative. He will be prescribed Bentyl and Zofran and discharged home. He has had this happen on several occasions and no cause has ever been found. Treatment diagnosis and follow-up were discussed with the patient. Differential Diagnosis Differential diagnosis: Likely abdominal pain, constipation, diverticulitis, gastroenteritis, pancreatitis and small bowel obstruction Lab Data Attestation: I reviewed the patient's lab results. Labs: Lab Results 09/05/23 09/05/23 Range/Units 22:16 22:45 WBC 7.5 (4.0-11.0) 10^3/uL RBC 4.60 L (4.70-6.10) 10^6/uL Hgb 12.4 L (14.0-18.0) g/dL Hct 36.8 L (42.0-54.0) % MCV 80.0 (80.0-94.0) fL MCH 27.0 (25.9-34.0) pg MCHC 33.7 (29.9-35.2) g/dL RDW 13.6 (11.0-15.0) % Plt Count 221 (150-450) 10^3/uL MPV 10.1 (9.5-13.5) fL Neut % (Auto) 80.9 H (43.0-75.0) % Lymph % (Auto) 14.6 L (20.5-60.0) % [place] % (Auto) 3.9 (1.7-12.0) % Eos % (Auto) 0.0 L (0.9-7.0) % Baso % (Auto) 0.5 (0.2-2.0) % Neut # (Auto) 6.1 (1.4-6.5) 10^3/uL Lymph # (Auto) 1.1 L (1.2-3.8) 10^3/uL [place] # (Auto) 0.3 (0.3-0.8) 10^3/uL Eos # (Auto) 0.0 (0.0-0.7) 10^3/uL Baso # (Auto) 0.0 (0.0-0.1) 10^3/uL Abs Immat Gran (auto) 0.01 (0.00-0.03) 10^3/uL Imm/Tot Granulo (auto) 0.1 (0.0-0.5) % Sodium 134 L (136-145) mmol/L Potassium 2.8 L* (3.5-5.1) mmol/L Chloride 92 L (98-107) mmol/L Carbon Dioxide 33.7 H (21.0-32.0) mmol/L Anion Gap 11.1 BUN 12.0 (7.0-18.0) mg/dL Creatinine 0.73 (0.70-1.30) mg/dL Est GFR ( Amer) >60 (>=60) Est GFR (Non-Af Amer) >60 (>=60) BUN/Creatinine Ratio 16.4 Glucose 159 H (74-106) mg/dL Lactate 1.4 (0.4-2.0) mmol/L Calcium 10.1 (8.5-10.1) mg/dL Total Bilirubin 0.8 (0.2-1.0) mg/dL Direct Bilirubin 0.2 (0.0-0.2) mg/dL AST 24 (15-37) U/L ALT 32 (16-63) U/L Alkaline Phosphatase 99 (46-116) U/L Total Protein 8.4 H (6.4-8.2) g/dL Albumin 4.1 (3.4-5.0) g/dL Globulin 4.3 g/dL Albumin/Globulin Ratio 1.0 Amylase 56 (25-115) U/L Lipase 43.0 (16.0-77.0) U/L Urine Color Dk. yellow (YELLOW) Urine Clarity Clear (CLEAR) Urine pH 7.0 (5.0-9.0) Ur Specific [place] 1.020 (1.005-1.025) Urine Protein 100 A (NEG/TRACE) mg/dL Urine Glucose (UA) Negative (NEGATIVE) mg/dL Urine Ketones Trace A (NEGATIVE) mg/dL Urine Occult Blood Negative (NEGATIVE) Urine Nitrite Negative (NEGATIVE) Urine Bilirubin Negative (NEGATIVE) Urine Urobilinogen 0.2 (0.2-1.0) EU/dL Ur Leukocyte Esterase Negative (NEGATIVE) Urine RBC 0-2 (0-2) #/HPF Urine WBC 0-2 A (NONE SEEN) #/HPF Ur Squamous Epith Cells Many A (NONE/RARE) #/LPF Urine Crystals None seen (None Seen) #/HPF Urine Bacteria None seen (NONE SEEN) #/HPF Urine Casts None seen (NONE SEEN) #/LPF Urine Mucus Small A (NONE SEEN) Imaging Data CT scan - abdomen: Radiologist's impression: ITS Impressions Abdomen/Pelvis CT 09/05/23 22:11 IMPRESSION: 1. No acute diagnostic abnormality in the abdomen or pelvis. 2. Mild hepatomegaly. Electronically authenticated by: ZAY PENA Date: 09/05/2023 23:57 Discharge Plan Discharge Stand Alone Forms: Portal Instructions Chief Complaint: Abdominal Pain Clinical Impression: Abdominal pain Patient Disposition: Home, Self-Care Time of Disposition Decision: 00:10 Condition: Good Mode of Transportation: Private Vehicle Prescriptions / Home Meds: New ondansetron 4 mg tablet,disintegrating 4 mg PO Q6H PRN (Reason: nausea and vomiting) Qty: 20 0RF dicyclomine 10 mg capsule 10 mg PO QID MDD Abdominal PRN (Reason: abdominal pain) Qty: 20 0RF No Action potassium chloride 20 mEq tablet extended release 20 meq PO BID Qty: 6 0RF allopurinol 100 mg tablet 100 mg PO DAILY amlodipine 10 mg tablet 10 mg PO DAILY atorvastatin 10 mg tablet 10 mg PO DAILY carvedilol 25 mg tablet 25 mg PO BID furosemide 40 mg tablet 40 mg PO DAILY gabapentin 300 mg capsule 300 mg PO DAILY Rx Instructions: Takes at bedtime losartan-hydrochlorothiazide 100-25 mg tablet 1 tab PO DAILY meloxicam 7.5 mg tablet 7.5 mg PO DAILY tizanidine 4 mg tablet 4 mg PO Q8H PRN (Reason: muscle spasticity) Print Language: Kiswahili Instructions: Abdominal Pain (ED) Referrals: ABDOUL ADAM [Primary Care Provider] - 1 week
[2023-09-05 22:30] LABS: Basophils Percent Auto 0.5 % (0.2-2.0); Hematocrit 36.8 % (42.0-54.0); Hemoglobin 12.4 g/dL (14.0-18.0); Immature Granulocytes Abs Auto 0.01 10^3/uL (0.00-0.03); Immature Granulocytes Pct Auto 0.1 % (0.0-0.5); Lymphocytes Absolute Auto 1.1 10^3/uL (1.2-3.8); Lymphocytes Percent Auto 14.6 % (20.5-60.0); Mean Corpuscular HGB Conc 33.7 g/dL (29.9-35.2); Mean Platelet Volume 10.1 fL (9.5-13.5); Monocytes Absolute Auto 0.3 10^3/uL (0.3-0.8); Monocytes Percent Auto 3.9 % (1.7-12.0); Neutrophils Absolute Auto 6.1 10^3/uL (1.4-6.5); Neutrophils Percent Auto 80.9 % (43.0-75.0); Platelet Count 221 10^3/uL (150-450); Red Cell Distribution Width 13.6 % (11.0-15.0); White Blood Count 7.5 10^3/uL (4.0-11.0)
[2023-09-05] MEDS: ONDANSETRON PF 4 MG/2 ML VIAL IV (22:35)
[2023-09-05] MEDS: MORPHINE SULFATE 4 MG/ML VIAL IV (22:38)
[2023-09-05 22:41] LABS: Lactate/Lactic Acid 1.4 mmol/L (0.4-2.0)
[2023-09-05 22:48] LABS: Alanine Aminotransferase 32 U/L (16-63); Albumin Level 4.1 g/dL (3.4-5.0); Alkaline Phosphatase 99 U/L (46-116); Amylase 56 U/L (25-115); Anion Gap 11.1; Aspartate Amino Transferase 24 U/L (15-37); BUN Creatinine Ratio 16.4; Bilirubin Direct 0.2 mg/dL (0.0-0.2); Bilirubin Total 0.8 mg/dL (0.2-1.0); Calcium 10.1 mg/dL (8.5-10.1); Carbon Dioxide 33.7 mmol/L (21.0-32.0); Chloride 92 mmol/L (98-107); Estimated GFR (African America >60 (>=60); Estimated GFR (Non-African Ame >60 (>=60); Globulin 4.3 g/dL; Glucose 159 mg/dL (74-106); Potassium 2.8 mmol/L (3.5-5.1); Sodium 134 mmol/L (136-145); Total Protein 8.4 g/dL (6.4-8.2)
[2023-09-05 22:52] LABS: Bilirubin Urine NEGATIVE (NEGATIVE); Blood Urine NEGATIVE (NEGATIVE); Clarity Urine CLEAR (CLEAR); Color Urine DK. YELLOW (YELLOW); Glucose Urine UA NEGATIVE (NEGATIVE); Ketones Urine TRACE mg/dL (NEGATIVE); Leukocyte Esterase Urine NEGATIVE (NEGATIVE); Nitrite Urine NEGATIVE (NEGATIVE); Protein Urine 100 mg/dL (NEG/TRACE); Urobilinogen Urine 0.2 EU/dL (0.2-1.0)
[2023-09-05 22:59] LABS: Bacteria Urine NONE SEEN #/HPF (NONE SEEN); Cast Seen? NONE SEEN #/LPF (NONE SEEN); Crystals Seen? None Seen #/HPF (None Seen); Mucus Urine SMALL (NONE SEEN); RBC Urine 0-2 #/HPF (0-2); Squamous Epithelial Cell Urine MANY #/LPF (NONE/RARE); WBC Urine 0-2 #/HPF (NONE SEEN)
[2023-09-05 23:34] VITALS: PULSE 88; O2SAT 96
== END 2023-09-06 00:26 | disposition home or self-care (01) ==
PROVIDERS: Emergency Provider Emergency Medicine; PCP Family Medicine
DX: R10.9 Unspecified abdominal pain (principal); Z87.891 Personal history of nicotine dependence
CPT/HCPCS: 36415; 74177; 80048; 80076; 81001; 82150; 83605; 83690; 85025; 93005; 96374; 96375; 99285; Q9967

== ENCOUNTER 2024-02-27 11:41 | Emergency (ER) | payer OTHER, SELFPAY ==
--- OUTSIDE RECORDS SUMMARY | 2024-02-27 11:49 | XMS_ITS | CCD ---
Author Organization [facility] Care Team Providers Care Phd Intern Name Role Phone FLAQUITO FERNANDEZ Admitting Unavailable FLAQUITO FERNANDEZ Attending Unavailable MIS, DR WALTON Primary Care Unavailable FLAQUITO FERNANDEZ Consulting Unavailable Danish Pan Consulting Unavailable Jeramie Lara Consulting Unavailable Wilfredo Colon Unavailable [phone] Esther Rain Unavailable Pop Cm Attending Unavailable Kylah Adam Primary Care Unavailable Kylah Adam Referring Unavailable Pop Cm Admitting Unavailable KYLAH ADAM Referring Unavailable KYLAH ADAM Primary Care Unavailable Kylah Adam MD Primary Care Provider Kylah Adam MD Unavailable Kylah Adam MD Unavailable SARA MORALES Attending UnavailSTEPHANY Delatorre Attending Unavailable KATRIN GARCIA Attending Unavailable STEPHANY QUIROZ Attending Unavailable SARA MORALES Attending Rodney young Allergies Allergy Classification Reported Allergen(s) Allergy Type Date of Onset Reaction(s) Facility (1 source) celecoxib; Translations: [CELECOXIB] Drug Allergy 05-23-2021 [facility] Medications Current Medications Medication Drug Class(es) Dates [...] 2020 1:00am allopurinol 100 mg oral tablet (7 sources) Xanthine Oxidase Inhibitor Start: 12-01-2023 allopurinol (Zyloprim) 100 MG tablet 12/01/2023 Active Start: 05-10-2020 take 100 mg by mouth once brandon y Allopurinol Active 100 MG PO Daily May 10, 2020 1:00am amLODIPine 10 mg oral tablet (7 sources) Dihydropyridine Calcium Channel Charlee Start: 05-31-2023 take 1 tablet by mouth once daily amLODIPine (Norvasc) 10 MG tablet Indications: Primary hypertension (CMS/HCC) Take 1 tablet (10 mg) by mouth Daily 90 tablet 3 05/31/2023 Active Start: 05-10-2020 take 10 mg by mouth once daily Amlodipine Active 10 MG PO Daily May 10, 2020 1:00am atorvastatin 10 mg oral tablet (6 sources) HMG-CoA Reductase Inhibitor Start: 05-31-2023 take 1 tablet by mouth once daily atorvastatin (Lipitor) 10 MG tablet Indications: Mixed hyperlipidemia (CMS/HCC) Take 1 tablet (10 mg) by mouth Daily 90 tablet 3 05/31/2023 Active Atorvastatin Noble cium 10 MG Oral for 90 Days Active buprenorphine 4 mg / naloxone 1 mg sublingual film (1 source) Partial Opioid Agonist, Opioid Antagonist Start: 05-10-2020 Buprenorphine-Naloxone (Suboxone) 4-1 mg Film Active 1 FILM SUBLINGUAL Daily May 10, 2020 1:00am carvedilol 25 mg oral tablet (7 sources) alpha-Adrenergi c Charlee, beta-Adrenergic Charlee Start: 11-28-2023 End: 11-27-2024 take 1 tablet by mouth in the morning carvedilol (Coreg) 25 MG tablet Indications: Primary hypertension (CMS/HCC) Take 1 tablet (25 mg) by mouth in the morning and 1 tablet (25 mg) in the evening. Take with meals. 200 tablet 1 11/28/2023 11/27/2024 Active Start: 05-10-2020 take 25 mg by mouth twice brandon y Carvedilol Active 25 MG PO Twice daily May 10, 2020 1:00am Compression stockings, 30-40mmHg, calf 30-40mmHg (9 sources) Start: 12-29-[address]ckings, 30-40mmHg, calf 30-40mmHg 1 pair externally daily [...] MG PO Daily May 10, 2020 1:00am fluticasone propionate 0.05 mg/actuat metered dose nasal spray (5 sources) Corticosteroid Start: 12-29-2023 End: 03-28-2024 take 1 spray(s) nasal route once daily fluticasone (Flonase) 50 MCG/ACT nasal spray Indications: Post-nasal drip Administer 1 spray into each nostril Daily Shake gently. Before first use, prime pump. After use, clean tip and replace cap. 48 g 12/29/2023 03/28/2024 Active furosemide 40 mg oral tablet (8 sources) Loop Diuretic Start: 12-01-2023 End: 02-11-2024 furosemide (Lasix) 40 MG tablet Indications: Primary hypertension (CMS/HCC) TAKE 1 TABLET DAILY 90 tablet 1 02/11/2024 Active Start: 05-10-2020 take 40 mg by mouth twice brandon y Furosemide Active 40 MG PO Twice daily May 10, 2020 1:00am gabapentin 300 mg oral capsule (6 sources) Anti-epileptic Agent Start: 05-22-2022 take 1 capsule by mouth once daily gabapentin (Neurontin) 300 MG capsule Take 300 mg by mouth Daily 05/22/2022 Active Tzrmk-Yur-W-Llhpi-Kxky-I ve (Joint Support Complex) 550-697-30-0.5 mg Capsule (1 source) Start: 05-10-2020 take 2 capsules by mouth once daily in the morning Bornq-Ofe-W-Boro n-Alexander-Tina (Joint Support Complex) 103-606-10-0.5 mg Capsule Active 2 CAP PO Every morning May 10, 2020 1:00am hydroCHLOROthiazide 25 mg / losartan potassium 100 mg oral tablet (7 sources) Thiazide Diuretic, Angiotensin 2 Receptor Charlee Start: 09-29-2023 take 1 tablet by mouth in the morning losartan-hydroCH LOROthiazide (Hyzaar) 100-25 MG tablet Indications: Primary hypertension (CMS/HCC) Take 1 tablet by mouth in the morning for 15 days. 15 tablet 09/29/2023 Active Start: 05-10-2020 take 1 tablet by rona th once daily Losartan-Hydrochlorothiazide Active 1 TA B PO Daily May 10, 2020 1:00am Losartan Potassi um-HCTZ 100-25 MG Oral for 90 Days Active Medical Compression Stockings 20-30 mmHg (4 sources) Start: 03-04-2016 Medical Compre ssion Stockings 20-30 mmHg as directed Feb, Active meloxicam 7.5 mg oral tablet (7 sources) Nonsteroidal Anti-inflammatory Drug Start: 05-26-2023 meloxicam (Mobic) 7.5 MG tablet 05/26/2023 Active Start: 05-10-2020 take 7.5 mg by mouth once brandon y Meloxicam Active 7.5 MG PO Daily May 10, 2020 1:00am Multivit With Min-Folic Acid (Centrum Adult 50 Fresh-Fruity) 120 mcg Tablet,Chewable (1 source) Start: 05-10-2020 take 1 tablet by mouth once daily Multivit With Min-Folic Acid (Centrum Adult 50 Fresh-Fruity) 120 mcg Tablet,Chewable Active 1 TAB PO Daily May 10, 2020 1:00am pantoprazole 40 mg delayed release oral tablet (5 sources) Proton Pump Inhibitor Start: 12-08-2023 take 1 tablet by mouth before mealtime pantoprazole (Protonix) 40 MG EC tablet Indications: Gastroesophageal reflux disease without esophagitis Take 1 tablet (40 mg) by mouth in the morning. Take before meals. Do not crush, chew, or split.. 90 tablet 1 12/08/2023 Active microencapsulated potassium chloride 10 meq extended release oral tablet (1 source) Start: 02-15-2024 take 1 tablet by mouth once daily potassium chloride CR (Klor-Con M10) 10 MEQ ER tablet Indications: Hypokalemia Take 1 tablet (10 mEq) by mouth Daily Do not crush or chew. 90 tablet 02/15/2024 Active 72 hr scopolamine 0.0139 mg/hr transdermal system (5 sources) Anticholinergic Start: 10-12-2023 scopolamine (Transderm-Scop) 1 mg/72 hr patch 72 hour patch Indications: Motion sickness, initial encounter Place 1 patch on the skin every 3rd (third) day if needed (nausea) 2 patch 10/12/2023 Active tiZANidine 4 mg oral tablet (6 sources) Central alpha-2 Adrenergic Agonist Start: 08-05-2022 take 1 tablet by mouth once daily tiZANidine (Zanaflex) 4 MG tablet Take 4 mg by mouth as needed at bedtime. 1/2 tablet to 1 tablet nightly 08/05/2022 Active Completed/Discontinued Medications Medication Drug Class(es) Dates [...] Translations: [UNSPECIFIED ABDOMINAL PAIN] Onset: 05-18-2021 Episodic Cardiac and circulatory congenital anomalies (7 sources) Atresia and stenosis of aorta; Translations: [Other atresia of aorta] Onset: 03-27-2020 09-29-2022 Chronic Chronic ulcer of skin (15 sources) Ankle ulcer; Translations: [Non-pressure chronic ulcer of unspecified ankle with unspecified severity] Onset: 05-05-2017 Resolved: 02-09-2023 02-09-2023 Chronic Diseases of white blood cells (9 sources) Neutropenia; Translations: [Neutropenia, unspecified] Onset: 05-13-2020 05-13-2020 Chronic Disorders of lipid metabolism (7 sources) Hyperlipidemia; Translations: [Hyperlipidemia, unspecified] Onset: 04-17-2015 09-29-2022 Chronic Essential hypertension (15 sources) Essential hypertension; Translations: [Essential (primary) hypertension] Onset: 01-14-2015 02-11-2024 Chronic Fluid and electrolyte disorders (1 source) Hypokalemia; Translations: [Hypokalemia] 02-15-2024 Episodic Gout and other crystal arthropathies (20 sources) Chondrocalcinosis; Translations: [Other chondrocalcinosis, unspecified site] Onset: 04-11-2019 Resolved: 02-14-2024 09-29-2022 Chronic Heart valve disorders (14 sources) Aortic valve stenosis; Translations: [Nonrheumatic aortic (valve) stenosis] Onset: 09-29-2022 09-29-2022 Chronic Osteoarthritis (20 sources) Idiopathic osteoarthritis; Translations: [Unspecified osteoarthritis, unspecified site] Onset: 07-24-2015 Resolved: 02-09-2023 09-29-2022 Chronic Other aftercare (1 source) Other terminal operations supervisor (current) drug therapy; Translations: [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] Onset: 05-22-2021 Episodic Other circulatory disease (1 source) Personal history of other diseases of the circulatory system Episodic Other connective tissue disease (7 sources) History of left total knee replacement; Translations: [Presence of left artificial knee joint] Onset: 04-08-2017 09-29-2022 Chronic Other diseases of veins and lymphatics (7 sources) Chronic peripheral venous hypertension with lower extremity complication; Translations: [Chronic venous hypertension (idiopathic) with ulcer and inflammation of left lower extremity] Onset: 05-05-2017 09-29-2022 Chronic Other diseases of veins and lymphatics (5 sources) Venous ulcer of lower extremity due to chronic peripheral venous hypertension; Translations: [Chronic venous hypertension (idiopathic) with ulcer of unspecified lower extremity] Onset: 01-16-2020 Resolved: 02-09-2023 02-09-2023 Chronic Other diseases of veins and lymphatics (5 [...] insufficiency; Translations: [Venous insufficiency (chronic) (peripheral)] Episodic Other screening for suspected conditions (not mental disorders or infectious disease) (3 sources) Unspecified abnormal finding in specimens from other organs, systems and tissues; Translations: [Patient encounter status] Onset: 10-04-2023 02-14-2024 Episodic Other upper respiratory disease (7 sources) Allergic rhinitis; Translations: [Allergic rhinitis, unspecified] Onset: 03-11-2017 09-29-2022 Chronic Residual codes; unclassified (1 source) Localized edema Episodic Rheumatoid arthritis and related disease (7 sources) Rheumatoid arthritis; Translations: [Rheumatoid arthritis, unspecified] Onset: 09-29-2022 09-29-2022 Chronic Spondylosis; intervertebral disc disorders; other back problems (14 sources) Lumbar spondylosis; Translations: [Spondylosis without myelopathy or radiculopathy, lumbar region] Onset: 10-29-2016 09-29-2022 Chronic Unclassified (1 source) CONTACT W/AND (SUSP) EXPOS COVID-19; Translations: [CONTACT W/AND (SUSP) EXPOS COVID-19] Onset: 05-22-2021 Varicose veins of lower extremity (8 sources) Varicose veins of lower extremity; Translations: [Varicose veins of bilateral lower extremities with other complications] Onset: 05-01-2021 Resolved: 05-01-2021 Episodic Past or Other Problems Problem Classification Problem Date Documented Date Episodic/Chronic Biliary tract disease (5 sources) Biliary calculus; Translations: [Calculus of gallbladder without cholecystitis without obstruction] Onset: 04-18-2020 Resolved: 02-14-2024 09-29-2022 Episodic Complication of device; implant or graft (5 sources) Disorder of prosthetic joint; Translations: [Broken internal right knee prosthesis, initial encounter] Onset: 03-22-2020 Resolved: 02-09-2023 02-09-2023 Episodic Deficiency and other anemia (1 source) Anemia, unspecified; Translations: [Anemia, unspecified] Onset: 05-13-2020 Episodic Mood disorders (5 sources) Mood disorders Onset: 02-09-2023 02-09-2023 Other diseases of veins and lymphatics (7 sources) Peripheral venous insufficiency; Translations: [Venous insufficiency (chronic) (peripheral)] Onset: 05-28-2016 09-29-2022 Episodic Other lower respiratory disease (7 sources) Nodule of lung; Translations: [Solitary pulmonary nodule] Onset: 03-15-2023 03-15-2023 Episodic Other male genital disorders (5 sources) Secondary erectile dysfunction; Translations: [Male erectile dysfunction, unspecified] Onset: 03-24-2021 Resolved: 02-14-2024 03-15-2023 Chronic Other nervous system disorders (5 sources) Carpal tunnel syndrome of right wrist; Translations: [Carpal tunnel syndrome, right upper limb] Onset: 06-22-2019 Resolved: 02-14-2024 09-29-2022 Chronic Other non-traumatic joint disorders (5 sources) Pain in left knee; Translations: [Pain in joint, lower leg] Onset: 10-29-2016 Resolved: 02-09-2023 02-09-2023 Episodic Residual codes; unclassified (5 sources) Localized edema; Translations: [Localized edema] Onset: 03-11-2017 Resolved: 02-14-2024 09-29-2022 Episodic Viral infection (5 sources) Genital herpes simplex; Translations: [Herpesviral infection of urogenital system, unspecified] Onset: 03-11-2017 Resolved: 02-09-2023 02-09-2023 Chronic Results Test Name Value Interpretation Reference Range Facility CBC W Auto Differential pane l (Bld)on 02-15-2024 Basophils (Bld) [#/Vol] 70 10*3/uL [facility] Basophils/100 WBC (Bld) 1.4 % [facility] Eosinophils (Bld) [#/Vol] 250 10*3/uL [facility] Eosinophils/100 WBC (Bld) 5 % [facility] Erythrocyte distribution width (RBC) [Ratio] 13.3 % 11.0 - 15.0 % [facility] Hematocrit (Bld) [Volume fraction] 36.2 % Low 38.5 - 50.0 % [facility] Hemoglobin (Bld) [Mass/Vol] 11.7 g/dL Low 13.2 - 17.1 g/dL [facility] Lymphocytes (Bld) [#/Vol] 1380 10*3/uL [facility] Lymphocytes/100 WBC (Bld) 27.6 % [facility] MCH (RBC) [Entitic mass] 27.4 pg 27.0 - 33.0 pg [facility] MCHC (RBC) [Mass/Vol] 32.3 g/dL 32.0 - 36.0 g/dL [facility] Comment on above: For adults, a slight decrease in the calculated MCHC value (in the range of 30 to 32 g/dL) is most likely not clinically significant; however, it should be interpreted with caution in correlation with other red cell parameters and the patient's clinical condition. MCV (RBC) [Entitic vol] 84.8 fL 80.0 - 100.0 fL [facility] Monocytes (Bld) [#/Vol] 485 10*3/uL [facility] Monocytes/100 WBC (Bld) 9.7 % [facility] Neutrophils (Bld) [#/Vol] 2815 10*3/uL [facility] Neutrophils/100 WBC (Bld) 56.3 % [facility] Platelet mean volume (Bld) [Entitic vol] 11.4 fL 7.5 - 12.5 fL [facility] Platelets (Bld) [#/Vol] 204 10*3/uL [facility] RBC (Bld) [#/Vol] 4.27 10*6/uL [facility] WBC (Bld) [#/Vol] 5 10*3/uL [facility] Laboratory - Chemistry and C hemistry - challengeon 02-15-2024 Albumin [Mass/Vol] 4.5 g/dL 3.6 - 5.1 g/dL [facility] Albumin/Globulin [Mass ratio] 1.5 {ratio} [facility] ALP [Catalytic activity/Vol] 81 U/L 35 - 144 U/L [facility] ALT [Catalytic activity/Vol] 17 U/L 9 - 46 U/L [facility] AST [Catalytic activity/Vol] 22 U/L 10 - 35 U/L [facility] Bilirubin [Mass/Vol] 0.6 mg/dL 0.2 - 1.2 mg/dL [facility] Calcium [Mass/Vol] 9.4 mg/dL 8.6 - 10. 3 mg/dL [facility] Chloride [Moles/Vol] 98 mmol/L 98 - 110 mmol/L [facility] CO2 [Moles/Vol] 33 mmol/L High 20 - 32 mmol/L [facility] Creatinine [Mass/Vol] 0.63 mg/dL Low 0.70 - 1.35 mg/dL [facility] GFR/1.73 sq M.predicted among non-blacks MDRD (S/P/Bld) [Vol rate/Area] 105 mL/min/{1.73_m2} > OR = 60 mL/min/1.73m 2 [facility] Globulin (S) [Mass/Vol] 3 g/dL [facility] Glucose [Mass/Vol] 115 mg/dL High 65 - 99 mg/dL [facility] Comment on above: Fasting reference interval For someone without known diabetes, a glucose value between 100 and 125 mg/dL is consistent with prediabetes and should be confirmed with a follow-up test. Potassium [Moles/Vol] 3.2 mmol/L Low 3.5 - 5.3 mmol/L [facility] Prostate specific Ag [Mass/Vol] 0.25 ng/mL < OR = 4.00 [facility] Comment on above: The total PSA value from this assay system is standardized against the WHO standard. The test result will be approximately 20% lower when compared to the equimolar-standardized total PSA (Cory Kai). Comparison of serial PSA results should be interpreted with this fact in mind. This test was performed using the Siemens chemiluminescent method. Values obtained from different assay methods cannot be used interchangeably. PSA levels, regardless of value, should not be interpreted as absolute evidence of the presence or absence of disease. Protein [Mass/Vol] 7.5 g/dL 6.1 - 8.1 g/dL [facility] Sodium [Moles/Vol] 141 mmol/L 135 - 146 mmol/L [facility] Urea nitrogen [Mass/Vol] 14 mg/dL 7 - 25 mg/dL [facility] Urea nitrogen/Creatinin e [Mass ratio] 22 mg/mg [facility] Lipid 1996 panelon 4 Cholesterol [Mass/Vol] 148 mg/dL NINF - 200 mg/dL [facility] Cholesterol in HDL [Mass/Vol] 56 mg/dL > OR = 40 [facility] Cholesterol in LDL [Mass/Vol] 78 mg/dL mg/dL (calc) [facility] Comment on above: Reference range: <10 0 Desirable range <100 mg/dL for primary prevention; <70 mg/dL for patients with CHD or diabetic patients with > or = 2 CHD risk factors. LDL-C is now calculated using the Danii calculation, which is a validated novel method providing better accuracy than the Friedewald equation in the estimation of LDL-C. Dann BEJARANO et al. PATRICK. 2013;310(19): 8482-0976 (http://education.[employer]/faq/BWX457) Cholesterol non HDL [Mass/Vol] 92 mg/dL [facility] Comment on above: For patients with di abetes plus 1 major ASCVD risk factor, treating to a non-HDL-C goal of <100 mg/dL (LDL-C of <70 mg/dL) is considered a therapeutic option. Cholesterol.total/ Cholesterol in HDL [Mass ratio] 2.6 {ratio} [facility] Triglyceride [Mass/Vol] 55 mg/dL [facility] - 150 mg/dL [facility] No Panel Informationon 02-14 Interpretation and review of laboratory results Abnormal [facility] Performing Organizat ion Information Site ID: QPT Name: [facility] Address: [address] [place] [address], [address] [place] [id number] Director: Anatoliy Johnson MD [facility] BLOOD UREA NITROGENon 2023 Urea nitrogen [Mass/Vol] 19 mg/dL Normal 5-27 [facility] Comment on above: Performed By: #### U PCR, 3094-0, LIVESTOCK BREEDER #### [facility] ([id number]) [address] [place] [address] CREATININEon 10-04-2023 Creatinine [Mass/Vol] 0.74 mg/dL Normal 0.60-1.30 [facility] Comment on above: Result Comment: METH OD TRACEABLE TO IDMS STANDARD Performed By: #### U PCR, 3094-0, LIVESTOCK BREEDER #### [facility] ([id number]) [address] [place] [address] eGFR (CKD-EPI) NON-RACE DEPENDENT >90 Normal >59 [facility] Comment on above: Result Comment: Reported eGFR is based on the CKD-EPI 2020 equation that does not use a race coefficient. Performed By: #### U PCR, 309-0, LIVESTOCK BREEDER #### [facility] ([id number]) [address], [address] [place] [address] PROTEIN CREAT RATIOon 2023 RANDOM URINE PROTEIN <40 Normal <120 [facility] Comment on above: Performed By: #### U PCR, 309-0, LIVESTOCK BREEDER #### [facility] ([id number]) [address], [facility] [address] [place] [address] U/PRO/LIVESTOCK BREEDER RATIO CALC NOT CALCULATED Normal <0.2 [facility] Comment on above: Result Comment: Result for Protein/Creatinine Ratio cannot be reliably calculated because urine total protein and or urine creatinine is below the detection limit of the assay. Performed By: #### U PCR, 0, LIVESTOCK BREEDER #### [facility] ([id number]) [address], [address] [place] [address] URINE CREATININE,RDM 21.23 mg/dL Normal [facility] Comment on above: Performed By: #### U PCR, 0, LIVESTOCK BREEDER #### [facility] ([id number]) [address], [address] [place] [address] URINALYSISon 10-04-2023 Bilirubin Ql (U) Negative Normal NEG [facility] Comment on above: Performed By: #### U A #### [facility] ([id number]) [address] [place] [address] BLOOD/HGB Negative Normal NEG [facility] Comment on above: Performed By: #### U A #### [facility] ([id number]) [address], [address] [place] [address] Color (U) YELLOW Normal YELLOW [facility] Comment on above: Performed By: #### U A #### [facility] ([id number]) [address], [address] [place] [address] Glucose Ql (U) Negative Normal NEG [facility] Comment on above: Performed By: #### U A #### [facility] ([id number]) [address], [address] [place] [address] Ketones Ql (U) Negative Normal NEG [facility] Comment on above: Performed By: #### U A #### [facility] ([id number]) [address], [address] [place] [address] Leukocyte esterase Test strip Ql (U) Negative Normal NEG [facility] Comment on above: Performed By: #### U A #### [facility] ([id number]) [address], [address] [place] [address] Nitrite Ql (U) Negative Normal NEG [facility] Comment on above: Performed By: #### U A #### [facility] ([id number]) [address], [address] [place] [address] pH (U) 7.0 [pH] Normal 5.0-8.5 [facility] Comment on above: Performed By: #### U A #### [facility] ([id number]) [address], [address] [place] [address] Protein Ql (U) Negative Normal NEG [facility] Comment on above: Performed By: #### U A #### [facility] ([id number]) [address], [address] [place] [address] Specific gravity (U) [Rel density] 1.010 Normal 1.003-1.035 [facility] Comment on above: Performed By: #### U A #### [facility] ([id number]) [address], [address] [place] [address] TURBIDITY CLEAR Normal CLEAR [facility] Comment on above: Performed By: #### U A #### [facility] ([id number]) [address] [place] [address] Urobilinogen (U) [Mass/Vol] mg/dL Normal <1.1 [facility] Comment on above: Performed By: #### U A #### [facility] ([id number]) [address], [address] [place] [address] ALT (SGPT)/AST (SGOT)on 09-04 ALT [Catalytic activity/Vol] 25 U/L Normal (1 - 45) [facility] Comment on above: Performed By: #### U RCA, ALT+, ESRCRP, BC/BCR, CBC/D #### [facility] [address] [facility], [address] AST [Catalytic activity/Vol] 32 U/L Normal (15 - 46) [facility] Comment on above: Performed By: #### U RCA, ALT+, ESRCRP, BC/BCR, CBC/D #### [facility] [address] [facility], [address] BUN - CREATININE W/GFRon Creatinine [Mass/Vol] 1.78 mg/dL High (0.66 - 1.25) [facility] Comment on above: Performed By: #### U RCA, ALT+, ESRCRP, BC/BCR, CBC/D #### [facility] [address] [facility], [address] GFR- AMER 46.5 ML/M1.7 Low (60.0 - 161.8) [facility] Comment on above: Performed By: #### U RCA, ALT+, ESRCRP, BC/BCR, CBC/D #### [facility] [address] [facility], [address] GFR-NON AFRIC-AMER 38.4 ML/M1.7 Low (60.0 - 133.8) [facility] Comment on above: Performed By: #### U RCA, ALT+, ESRCRP, BC/BCR, CBC/D #### [facility] [address] [facility], [address] Urea nitrogen [Mass/Vol] 45 mg/dL High (9 - 20) [facility] Comment on above: Performed By: #### U RCA, ALT+, ESRCRP, BC/BCR, CBC/D #### [facility] [address] [facility], [address] Urea nitrogen/Creatinin e [Mass ratio] 25 mg/mg High (6 - 20) [facility] Comment on above: Performed By: #### U RCA, ALT+, ESRCRP, BC/BCR, CBC/D #### [facility] [address] [facility], [address] CBC WITH DIFFon 09-24-2023 ABS BASOPHIL 0.05 x10^3ul Normal (0.00 - 0.16) [facility] Comment on above: Order Comment: FACIL ITY: [facility] [id number] Performed By: #### U RCA, ALT+, ESRCRP, BC/BCR, CBC/D #### [facility] [address] [facility], [address] ABS EOSINOPHIL 0.29 x10^3ul Normal (0.00 - 0.40) [facility] Comment on above: Order Comment: FACIL ITY: [facility] [id number] Performed By: #### U RCA, ALT+, ESRCRP, BC/BCR, CBC/D #### [facility] [address] [facility], [address] ABS IMMATURE GRANS 0.01 x10^3ul Normal (0.00 - 0.11) [facility] Comment on above: Order Comment: FACIL ITY: [facility] [id number] Performed By: #### U RCA, ALT+, ESRCRP, BC/BCR, CBC/D #### [facility] [address] [facility], [address] ABS LYMPHOCYTE 1.50 x10^3ul Normal (0.96 - 5.40) [facility] Comment on above: Order Comment: FACIL ITY: [facility] [id number] Performed By: #### U RCA, ALT+, ESRCRP, BC/BCR, CBC/D #### [facility] [address] [facility], [address] ABS MONOCYTE 0.54 x10^3ul Normal (0.10 - 1.00) [facility] Comment on above: Order Comment: FACIL ITY: [facility] [id number] Performed By: #### U RCA, ALT+, ESRCRP, BC/BCR, CBC/D #### [facility] [address] [facility], [address] ABS NEUTROPHIL 2.65 x10^3ul Normal (1.50 - 7.00) [facility] Comment on above: Order Comment: FACIL ITY: [facility] [id number] Performed By: #### U RCA, ALT+, ESRCRP, BC/BCR, CBC/D #### [facility] [address] [facility], [address] Basophils/100 WBC (Bld) 1.0 % Normal () [facility] Comment on above: Order Comment: FACIL ITY: [facility] [id number] Performed By: #### U RCA, ALT+, ESRCRP, BC/BCR, CBC/D #### [facility] [address] [facility], [address] Eosinophils/100 WBC (Bld) 5.8 % Normal () [facility] Comment on above: Order Comment: FACIL ITY: [facility] [id number] Performed By: #### U RCA, ALT+, ESRCRP, BC/BCR, CBC/D #### [facility] [address] [facility], [address] Hematocrit (Bld) [Volume fraction] 35.9 % Low (42.0 - 52.0) [facility] Comment on above: Order Comment: FACIL ITY: [facility] [id number] Performed By: #### U RCA, ALT+, ESRCRP, BC/BCR, CBC/D #### [facility] [address] [facility], [address] Hemoglobin (Bld) [Mass/Vol] 12.0 g/dL Low (14.0 - 18.0) [facility] Comment on above: Order Comment: FACIL ITY: [facility] [id number] Performed By: #### U RCA, ALT+, ESRCRP, BC/BCR, CBC/D #### [facility] [address] [facility], [address] IMMATURE GRANS (IG) 0.2 % Normal () [facility] Comment on above: Order Comment: FACIL ITY: [facility] [id number] Performed By: #### U RCA, ALT+, ESRCRP, BC/BCR, CBC/D #### [facility] [address] [facility], [address] LYMPS 29.8 % Normal () [facility] Comment on above: Order Comment: FACIL ITY: [facility] [id number] Performed By: #### U RCA, ALT+, ESRCRP, BC/BCR, CBC/D #### [facility] [address] [facility], [address] MCH (RBC) [Entitic mass] 27.1 pg Normal (27.0 - 33.0) [facility] Comment on above: Order Comment: FACIL ITY: [facility] [id number] Performed By: #### U RCA, ALT+, ESRCRP, BC/BCR, CBC/D #### [facility] [address] [facility], [address] MCHC (RBC) [Mass/Vol] 33.4 g/dL Normal (30.0 - 37.0) [facility] Comment on above: Order Comment: FACIL ITY: [facility] [id number] Performed By: #### U RCA, ALT+, ESRCRP, BC/BCR, CBC/D #### [facility] [address] [facility], [address] MCV (RBC) [Entitic vol] 81.2 fL Normal (80.0 - 94.0) [facility] Comment on above: Order Comment: FACIL ITY: [facility] [id number] Performed By: #### U RCA, ALT+, ESRCRP, BC/BCR, CBC/D #### [facility] [address] [facility], [address] MONOS 10.7 % Normal () [facility] Comment on above: Order Comment: FACIL ITY: [facility] [id number] Performed By: #### U RCA, ALT+, ESRCRP, BC/BCR, CBC/D #### [facility] [address] [facility], [address] PLT 217 x10^3ul Normal (130 - 400) [facility] Comment on above: Order Comment: FACIL ITY: [facility] [id number] Performed By: #### U RCA, ALT+, ESRCRP, BC/BCR, CBC/D #### [facility] [address] [facility], [address] RBC 4.42 x10^6ul Low (4.70 - 6.10) [facility] Comment on above: Order Comment: FACIL ITY: [facility] [id number] Performed By: #### U RCA, ALT+, ESRCRP, BC/BCR, CBC/D #### [facility] [address] [facility], [address] RDW-SD 40.8 fl Normal (37.0 - 49.0) [facility] Comment on above: Order Comment: FACIL ITY: [facility] [id number] Performed By: #### U RCA, ALT+, ESRCRP, BC/BCR, CBC/D #### [facility] [address] [facility], [address] SEGS 52.5 % Normal () [facility] Comment on above: Order Comment: FACIL ITY: [facility] [id number] Performed By: #### U RCA, ALT+, ESRCRP, BC/BCR, CBC/D #### [facility] [address] [facility], [address] WBC 5.04 x10^3ul Normal (3.80 - 10.60) [facility] Comment on above: Order Comment: FACIL ITY: [facility] [id number] Performed By: #### U RCA, ALT+, ESRCRP, BC/BCR, CBC/D #### [facility] [address] [facility], [address] HYALINE Heydi 09-24-2023 HYALINE CAST 0-4 High (NONE - .) [facility] Comment on above: Performed By: #### U RCA, ALT+, ESRCRP, BC/BCR, CBC/D #### [facility] [address] [facility], [address] SED RATE - CRPon 09-24-2023 CRP EXTENDED RANGE 25.77 MG/L High (0.00 - 3.20) [facility] Comment on above: Result Comment: CRP DILUTED & CHECKED BY REPEAT Performed By: #### U RCA, ALT+, ESRCRP, BC/BCR, CBC/D #### [facility] [address] [facility], [address] SED RATE WEST. 23 MM/HR Normal (0 - 24) [facility] Comment on above: Performed By: #### U RCA, ALT+, ESRCRP, BC/BCR, CBC/D #### [facility] [address] [facility], [address] URIC ACIDon 09-24-2023 Urate [Mass/Vol] 8.4 mg/dL Normal (3.5 - 8.5) [facility] Comment on above: Performed By: #### U RCA, ALT+, ESRCRP, BC/BCR, CBC/D #### [facility] [address] [place], [address] URINALYSIS, COMPLETEon 09-23 ALBUMIN Negative Normal (NONE - NEG) [facility] Comment on above: Performed By: #### U RCA, ALT+, ESRCRP, BC/BCR, CBC/D #### [facility] [address] [place], [address] BACTERIA OCC Normal (NONE - OCC) [facility] Comment on above: Performed By: #### U RCA, ALT+, ESRCRP, BC/BCR, CBC/D #### [facility] [address] [place], [address] Bilirubin Ql (U) Negative Normal (NEG) [facility] Comment on above: Performed By: #### U RCA, ALT+, ESRCRP, BC/BCR, CBC/D #### [facility] [address] [place], [address] CHARACTER HAZY Normal (CLEAR - HAZY) [facility] Comment on above: Performed By: #### U RCA, ALT+, ESRCRP, BC/BCR, CBC/D #### [facility] [address] [place], [address] Color (U) YEL Normal (P YEL - L AMB) [facility] Comment on above: Performed By: #### U RCA, ALT+, ESRCRP, BC/BCR, CBC/D #### [facility] [address] [place], [address] Glucose Ql (U) Negative Normal (NEG) [facility] Comment on above: Performed By: #### U RCA, ALT+, ESRCRP, BC/BCR, CBC/D #### [facility] [address] [place], [address] Ketones Ql (U) Negative Normal (NEG) [facility] Comment on above: Performed By: #### U RCA, ALT+, ESRCRP, BC/BCR, CBC/D #### [facility] [address] [place], [address] LEUK. ESTERASE Negative Normal (NEG) [facility] Comment on above: Performed By: #### U RCA, ALT+, ESRCRP, BC/BCR, CBC/D #### [facility] [address] [place], [address] Mucus Ql (Urine sed) OCC Normal (NONE - OCC) [facility] Comment on above: Performed By: #### U RCA, ALT+, ESRCRP, BC/BCR, CBC/D #### [facility] [place], [address] Nitrite Ql (U) Negative Normal (NEG) [facility] Comment on above: Performed By: #### U RCA, ALT+, ESRCRP, BC/BCR, CBC/D #### [facility] [address] [place], [address] OCCULT BLD. Negative Normal (NEG) [facility] Comment on above: Performed By: #### U RCA, ALT+, ESRCRP, BC/BCR, CBC/D #### [facility] [address] [place], [address] pH (U) 5.5 [pH] Normal (5.0 - 9.0) [facility] Comment on above: Performed By: #### U RCA, ALT+, ESRCRP, BC/BCR, CBC/D #### [facility] [address] [place], [address] SP. GRAVITY 1.010 Normal (1.001 - 1.035) [facility] Comment on above: Performed By: #### U RCA, ALT+, ESRCRP, BC/BCR, CBC/D #### [facility] [address] [place], [address] SQUAMOUS EPI OCC Normal (NONE - OCC) [facility] Comment on above: Performed By: #### U RCA, ALT+, ESRCRP, BC/BCR, CBC/D #### [facility] [address] [facility], [address] UR. RBC 0-2 Normal (0 - 2) [facility] Comment on above: Performed By: #### U RCA, ALT+, ESRCRP, BC/BCR, CBC/D #### [facility] [address] [facility], [address] UR. WBC 0-4 Normal (0 - 4) [facility] Comment on above: Performed By: #### U RCA, ALT+, ESRCRP, BC/BCR, CBC/D #### [facility] [address] [facility], [address] Urobilinogen (U) [Mass/Vol] 0.2 mg/dL Normal (0.2 - <2.0) [facility] Comment on above: Performed By: #### U RCA, ALT+, ESRCRP, BC/BCR, CBC/D #### [facility] [address] [facility], [address] ALT (SGPT)/AST (SGOT)on 05-07 ALT [Catalytic activity/Vol] 22 U/L Normal (1 - 45) [facility] Comment on above: Performed By: #### U RCA, ALT+, ESRCRP, BC/BCR, CBC/D #### [facility] [address] [facility], [address] AST [Catalytic activity/Vol] 33 U/L Normal (15 - 46) [facility] Comment on above: Performed By: #### U RCA, ALT+, ESRCRP, BC/BCR, CBC/D #### [facility] [address] [facility], [address] BUN - CREATININE W/GFRon Creatinine [Mass/Vol] 0.64 mg/dL Low (0.66 - 1.25) [facility] Comment on above: Performed By: #### U RCA, ALT+, ESRCRP, BC/BCR, CBC/D #### [facility] [address] [facility], [address] GFR- AMER 151.4 ML/M1.7 Normal (60.0 - 161.8) [facility] Comment on above: Performed By: #### U RCA, ALT+, ESRCRP, BC/BCR, CBC/D #### [facility] [address] [facility], [address] GFR-NON AFRIC-AMER 125.1 ML/M1.7 Normal (60.0 - 133.8) [facility] Comment on above: Performed By: #### U RCA, ALT+, ESRCRP, BC/BCR, CBC/D #### [facility] [address] [facility], [address] Urea nitrogen [Mass/Vol] 17 mg/dL Normal (9 - 20) [facility] Comment on above: Performed By: #### U RCA, ALT+, ESRCRP, BC/BCR, CBC/D #### [facility] [address] [facility], [address] Urea nitrogen/Creatinin e [Mass ratio] 27 mg/mg High (6 - 20) [facility] Comment on above: Performed By: #### U RCA, ALT+, ESRCRP, BC/BCR, CBC/D #### [facility] [address] [facility], [address] CBC WITH DIFFon 06-02-2023 ABS BASOPHIL 0.06 x10^3ul Normal (0.00 - 0.16) [facility] Comment on above: Order Comment: FACIL ITY: [facility] [id number] Performed By: #### U RCA, ALT+, ESRCRP, BC/BCR, CBC/D #### [facility] [address] [facility], [address] ABS EOSINOPHIL 0.21 x10^3ul Normal (0.00 - 0.40) [facility] Comment on above: Order Comment: FACIL ITY: [facility] [id number] Performed By: #### U RCA, ALT+, ESRCRP, BC/BCR, CBC/D #### [facility] [address] [facility], [address] ABS IMMATURE GRANS 0.00 x10^3ul Normal (0.00 - 0.11) [facility] Comment on above: Order Comment: FACIL ITY: [facility] [id number] Performed By: #### U RCA, ALT+, ESRCRP, BC/BCR, CBC/D #### [facility] [address] [facility], [address] ABS LYMPHOCYTE 1.35 x10^3ul Normal (0.96 - 5.40) [facility] Comment on above: Order Comment: FACIL ITY: [facility] [id number] Performed By: #### U RCA, ALT+, ESRCRP, BC/BCR, CBC/D #### [facility] [address] [facility], [address] ABS MONOCYTE 0.49 x10^3ul Normal (0.10 - 1.00) [facility] Comment on above: Order Comment: FACIL ITY: [facility] [id number] Performed By: #### U RCA, ALT+, ESRCRP, BC/BCR, CBC/D #### [facility] [address] [facility], [address] ABS NEUTROPHIL 2.37 x10^3ul Normal (1.50 - 7.00) [facility] Comment on above: Order Comment: FACIL ITY: [facility] [id number] Performed By: #### U RCA, ALT+, ESRCRP, BC/BCR, CBC/D #### [facility] [address] [facility], [address] Basophils/100 WBC (Bld) 1.3 % Normal () [facility] Comment on above: Order Comment: FACIL ITY: [facility] [id number] Performed By: #### U RCA, ALT+, ESRCRP, BC/BCR, CBC/D #### [facility] [address] [facility], [address] Eosinophils/100 WBC (Bld) 4.7 % Normal () [facility] Comment on above: Order Comment: FACIL ITY: [facility] [id number] Performed By: #### U RCA, ALT+, ESRCRP, BC/BCR, CBC/D #### [facility] [address] [facility], [address] Hematocrit (Bld) [Volume fraction] 37.0 % Low (42.0 - 52.0) [facility] Comment on above: Order Comment: FACIL ITY: [facility] [id number] Performed By: #### U RCA, ALT+, ESRCRP, BC/BCR, CBC/D #### [facility] [address] [facility], [address] Hemoglobin (Bld) [Mass/Vol] 12.1 g/dL Low (14.0 - 18.0) [facility] Comment on above: Order Comment: FACIL ITY: [facility] [id number] Performed By: #### U RCA, ALT+, ESRCRP, BC/BCR, CBC/D #### [facility] [address] [facility], [address] IMMATURE GRANS (IG) 0.0 % Normal () [facility] Comment on above: Order Comment: FACIL ITY: [facility] [id number] Performed By: #### U RCA, ALT+, ESRCRP, BC/BCR, CBC/D #### [facility] [address] [facility], [address] LYMPS 30.1 % Normal () [facility] Comment on above: Order Comment: FACIL ITY: [facility] [id number] Performed By: #### U RCA, ALT+, ESRCRP, BC/BCR, CBC/D #### [facility] [address] [facility], [address] MCH (RBC) [Entitic mass] 26.7 pg Low (27.0 - 33.0) [facility] Comment on above: Order Comment: FACIL ITY: [facility] [id number] Performed By: #### U RCA, ALT+, ESRCRP, BC/BCR, CBC/D #### [facility] [address] [facility], [address] MCHC (RBC) [Mass/Vol] 32.7 g/dL Normal (30.0 - 37.0) [facility] Comment on above: Order Comment: FACIL ITY: [facility] [id number] Performed By: #### U RCA, ALT+, ESRCRP, BC/BCR, CBC/D #### [facility] [address] [facility], [address] MCV (RBC) [Entitic vol] 81.7 fL Normal (80.0 - 94.0) [facility] Comment on above: Order Comment: FACIL ITY: [facility] [id number] Performed By: #### U RCA, ALT+, ESRCRP, BC/BCR, CBC/D #### [facility] [address] [facility], [address] MONOS 10.9 % Normal () [facility] Comment on above: Order Comment: FACIL ITY: [facility] [id number] Performed By: #### U RCA, ALT+, ESRCRP, BC/BCR, CBC/D #### [facility] [address] [facility], [address] PLT 196 x10^3ul Normal (130 - 400) [facility] Comment on above: Order Comment: FACIL ITY: [facility] [id number] Performed By: #### U RCA, ALT+, ESRCRP, BC/BCR, CBC/D #### [facility] [address] [facility], [address] RBC 4.53 x10^6ul Low (4.70 - 6.10) [facility] Comment on above: Order Comment: FACIL ITY: [facility] [id number] Performed By: #### U RCA, ALT+, ESRCRP, BC/BCR, CBC/D #### [facility] [address] [facility], [address] RDW-SD 40.9 fl Normal (37.0 - 49.0) [facility] Comment on above: Order Comment: FACIL ITY: [facility] [id number] Performed By: #### U RCA, ALT+, ESRCRP, BC/BCR, CBC/D #### [facility] [address] [facility], [address] SEGS 53.0 % Normal () [facility] Comment on above: Order Comment: FACIL ITY: [facility] O [id number] Performed By: #### U RCA, ALT+, ESRCRP, BC/BCR, CBC/D #### [facility] [address] [facility], [address] WBC 4.48 x10^3ul Normal (3.80 - 10.60) [facility] Comment on above: Order Comment: FACIL ITY: [facility] NWO [id number] Performed By: #### U RCA, ALT+, ESRCRP, BC/BCR, CBC/D #### [facility] [address] [facility], [address] SED RATE - CRPon 06-02-2023 CRP EXTENDED RANGE 2.05 MG/L Normal (0.00 - 3.20) [facility] Comment on above: Performed By: #### U RCA, ALT+, ESRCRP, BC/BCR, CBC/D #### [facility] [address] [facility], [address] SED RATE WEST. 13 MM/HR Normal (0 - 24) [facility] Comment on above: Performed By: #### U RCA, ALT+, ESRCRP, BC/BCR, CBC/D #### [facility] [address] [facility], [address] URIC ACIDon 06-02-2023 Urate [Mass/Vol] 5.8 mg/dL Normal (3.5 - 8.5) [facility] Comment on above: Performed By: #### U RCA, ALT+, ESRCRP, BC/BCR, CBC/D #### [facility] [address] [facility], [address] ALT (SGPT)/AST (SGOT)on 01-04 ALT [Catalytic activity/Vol] 27 U/L Normal (1 - 45) [facility] Comment on above: Performed By: #### U RCA, ALT+, ESRCRP, BC/BCR, CBC/D #### [facility] [address] [facility], [address] AST [Catalytic activity/Vol] 37 U/L Normal (15 - 46) [facility] Comment on above: Performed By: #### U RCA, ALT+, ESRCRP, BC/BCR, CBC/D #### [facility] [address] [facility], [address] BUN - CREATININE W/GFRon Creatinine [Mass/Vol] 0.84 mg/dL Normal (0.66 - 1.25) [facility] Comment on above: Performed By: #### U RCA, ALT+, ESRCRP, BC/BCR, CBC/D #### [facility] [address] [facility], [address] GFR- AMER 111.0 ML/M1.7 Normal (60.0 - 161.8) [facility] Comment on above: Performed By: #### U RCA, ALT+, ESRCRP, BC/BCR, CBC/D #### [facility] [address] [facility], [address] GFR-NON AFRIC-AMER 91.7 ML/M1.7 Normal (60.0 - 133.8) [facility] Comment on above: Performed By: #### U RCA, ALT+, ESRCRP, BC/BCR, CBC/D #### [facility] [address] [facility], [address] Urea nitrogen [Mass/Vol] 18 mg/dL Normal (9 - 20) [facility] Comment on above: Performed By: #### U RCA, ALT+, ESRCRP, BC/BCR, CBC/D #### [facility] [address] [facility], [address] Urea nitrogen/Creatinin e [Mass ratio] 21 mg/mg High (6 - 20) [facility] Comment on above: Performed By: #### U RCA, ALT+, ESRCRP, BC/BCR, CBC/D #### [facility] [address] [facility], [address] CBC WITH DIFFon 01-25-2023 ABS BASOPHIL 0.04 x10^3ul Normal (0.00 - 0.16) [facility] Comment on above: Order Comment: FACIL ITY: [facility] O [id number] Performed By: #### U RCA, ALT+, ESRCRP, BC/BCR, CBC/D #### [facility] [address] [facility], [address] ABS EOSINOPHIL 0.29 x10^3ul Normal (0.00 - 0.40) [facility] Comment on above: Order Comment: FACIL ITY: [facility] [id number] Performed By: #### U RCA, ALT+, ESRCRP, BC/BCR, CBC/D #### [facility] [address] [facility], [address] ABS IMMATURE GRANS 0.01 x10^3ul Normal (0.00 - 0.11) [facility] Comment on above: Order Comment: FACIL ITY: [facility] [id number] Performed By: #### U RCA, ALT+, ESRCRP, BC/BCR, CBC/D #### [facility] [address] [facility], [address] ABS LYMPHOCYTE 1.80 x10^3ul Normal (0.96 - 5.40) [facility] Comment on above: Order Comment: [facility] [facility] [id number] Performed By: #### U RCA, ALT+, ESRCRP, BC/BCR, CBC/D #### [facility] [address] [facility], [address] ABS MONOCYTE 0.42 x10^3ul Normal (0.10 - 1.00) [facility] Comment on above: Order Comment: FACIL ITY: [facility] [id number] Performed By: #### U RCA, ALT+, ESRCRP, BC/BCR, CBC/D #### [facility] [address] [facility], [address] ABS NEUTROPHIL 2.68 x10^3ul Normal (1.50 - 7.00) [facility] Comment on above: Order Comment: FACIL ITY: [facility] [id number] Performed By: #### U RCA, ALT+, ESRCRP, BC/BCR, CBC/D #### [facility] [address] [facility], [address] Basophils/100 WBC (Bld) 0.8 % Normal () [facility] Comment on above: Order Comment: FACIL ITY: [facility] [id number] Performed By: #### U RCA, ALT+, ESRCRP, BC/BCR, CBC/D #### [facility] [address] [facility], [address] Eosinophils/100 WBC (Bld) 5.5 % Normal () [facility] Comment on above: Order Comment: FACIL ITY: [facility] [id number] Performed By: #### U RCA, ALT+, ESRCRP, BC/BCR, CBC/D #### [facility] [address] [facility], [address] Hematocrit (Bld) [Volume fraction] 34.3 % Low (42.0 - 52.0) [facility] Comment on above: Order Comment: FACIL ITY: [facility] [id number] Performed By: #### U RCA, ALT+, ESRCRP, BC/BCR, CBC/D #### [facility] [address] [facility], [address] Hemoglobin (Bld) [Mass/Vol] 11.3 g/dL Low (14.0 - 18.0) [facility] Comment on above: Order Comment: FACIL ITY: [facility] [id number] Performed By: #### U RCA, ALT+, ESRCRP, BC/BCR, CBC/D #### [facility] [address] [facility], [address] IMMATURE GRANS (IG) 0.2 % Normal () [facility] Comment on above: Order Comment: FACIL ITY: [facility] [id number] Performed By: #### U RCA, ALT+, ESRCRP, BC/BCR, CBC/D #### [facility] [address] [facility], [address] LYMPS 34.4 % Normal () [facility] Comment on above: Order Comment: FACIL ITY: [facility] [id number] Performed By: #### U RCA, ALT+, ESRCRP, BC/BCR, CBC/D #### [facility] [address] [facility], [address] MCH (RBC) [Entitic mass] 27.4 pg Normal (27.0 - 33.0) [facility] Comment on above: Order Comment: FACIL ITY: [facility] [id number] Performed By: #### U RCA, ALT+, ESRCRP, BC/BCR, CBC/D #### [facility] [address] [facility], [address] MCHC (RBC) [Mass/Vol] 32.9 g/dL Normal (30.0 - 37.0) [facility] Comment on above: Order Comment: FACIL ITY: [facility] [id number] Performed By: #### U RCA, ALT+, ESRCRP, BC/BCR, CBC/D #### [facility] [address] [facility], [address] MCV (RBC) [Entitic vol] 83.3 fL Normal (80.0 - 94.0) [facility] Comment on above: Order Comment: FACIL ITY: [facility] [id number] Performed By: #### U RCA, ALT+, ESRCRP, BC/BCR, CBC/D #### [facility] [address] [facility], [address] MONOS 8.0 % Normal () [facility] Comment on above: Order Comment: FACIL ITY: [facility] [id number] Performed By: #### U RCA, ALT+, ESRCRP, BC/BCR, CBC/D #### [facility] [address] [facility], [address] PLT 194 x10^3ul Normal (130 - 400) [facility] Comment on above: Order Comment: FACIL ITY: [facility] [id number] Performed By: #### U RCA, ALT+, ESRCRP, BC/BCR, CBC/D #### [facility] [address] [facility], [address] RBC 4.12 x10^6ul Low (4.70 - 6.10) [facility] Comment on above: Order Comment: FACIL ITY: [facility] [id number] Performed By: #### U RCA, ALT+, ESRCRP, BC/BCR, CBC/D #### [facility] [address] [facility], [address] RDW-SD 42.0 fl Normal (37.0 - 49.0) [facility] Comment on above: Order Comment: FACIL ITY: [facility] [id number] Performed By: #### U RCA, ALT+, ESRCRP, BC/BCR, CBC/D #### [facility] [address] [facility], [address] SEGS 51.1 % Normal () [facility] Comment on above: Order Comment: FACIL ITY: [facility] [id number] Performed By: #### U RCA, ALT+, ESRCRP, BC/BCR, CBC/D #### [facility] [address] [facility], [address] WBC 5.24 x10^3ul Normal (3.80 - 10.60) [facility] Comment on above: Order Comment: FACIL ITY: [facility] [id number] Performed By: #### U RCA, ALT+, ESRCRP, BC/BCR, CBC/D #### [facility] [address] [facility], [address] SED RATE - CRPon 01-25-2023 CRP EXTENDED RANGE 1.66 MG/L Normal (0.00 - 3.20) [facility] Comment on above: Performed By: #### U RCA, ALT+, ESRCRP, BC/BCR, CBC/D #### [facility] [address] [facility], [address] SED RATE WEST. 10 MM/HR Normal (0 - 24) [facility] Comment on above: Performed By: #### U RCA, ALT+, ESRCRP, BC/BCR, CBC/D #### [facility] [address] [facility], [address] URIC ACIDon 01-25-2023 Urate [Mass/Vol] 4.8 mg/dL Normal (3.5 - 8.5) [facility] Comment on above: Performed By: #### U RCA, ALT+, ESRCRP, BC/BCR, CBC/D #### [facility] [address] [facility], [address] XR Elbow Complete Right*on XR Elbow Complete Right* FINDINGS: Minimal joint space loss, no joint effusion. Small olecranon spur. Linear calcifications along the lateral collateral ligament and distal triceps tendon insertion site. IMPRESSION: 1. Minimal arthritis, no fracture. Report reported and signed by Dhruv Linder on 01/21/2022 1434 Normal [facility] XR Wrist Complete Right*on XR Wrist Complete Right* FINDINGS: Normal carpal bone alignment. Minimal osseous arthritic changes. Triangulofibrocartilage calcifications and along the intercarpal and radial carpal rows. No acute fracture. IMPRESSION: 1. Minimal arthritis. 2. Chondrocalcinosis. Report reported and signed by Dhruv Linder on 01/21/2022 1432 Normal [facility] US RUQon 05-23-2021 US RUQ FINDINGS: Comparison [...] by Dhruv Linder on 05/23/2021 1059 Normal [facility] AMYLASEon 05-18-2021 Amylase [Catalytic activity/Vol] 48 U/L Normal 31-110 [facility] Comment on above: Performed By: #### B THERMODYNAMICS ENGINEER, LEILA, HSTROPN, CMP, LIPA #### [facility] [address] [place] [address] Dr. Rivera Sam BNPon 05-18-2021 Natriuretic peptide B (Bld) [Mass/Vol] 65.0 pg/mL Normal <=900.0 [facility] Comment on above: Performed By: #### B THERMODYNAMICS ENGINEER, LEILA, HSTROPN, CMP, LIPA #### [facility] [address] [place] [address] Dr. Rivera Sam CBC AUTO DIFFon 05-18-2021 BASO # 0.0 103/ul Normal 0.0-0.1 [facility] Comment on above: Performed By: #### B THERMODYNAMICS ENGINEER, LEILA, HSTROPN, CMP, LIPA #### [facility] [address] [place] [address] Dr. Rivera Sam Basophils/100 WBC (Bld) 0.6 % Normal 0.2-2.0 [facility] Comment on above: Performed By: #### B THERMODYNAMICS ENGINEER, LEILA, HSTROPN, CMP, LIPA #### [facility] [address] [place] [address] Dr. Rivera Sam EO # 0.0 103/ul Normal 0.0-0.7 [facility] Comment on above: Performed By: #### B THERMODYNAMICS ENGINEER, LEILA, HSTROPN, CMP, LIPA #### [facility] [address] [place] [address] Dr. Rivera Sam Eosinophils/100 WBC (Bld) 0.6 % Critically low 0.9-7.0 [facility] Comment on above: Performed By: #### B THERMODYNAMICS ENGINEER, LEILA, HSTROPN, CMP, LIPA #### [facility] [address] [place] [address] Dr. Rivera Sam Erythrocyte distribution width (RBC) [Ratio] 13.6 % Normal 11.0-15.0 [facility] Comment on above: Performed By: #### B THERMODYNAMICS ENGINEER, LEILA, HSTROPN, CMP, LIPA #### [facility] [address] [place] [address] Dr. Rivera Sam Hematocrit (Bld) [Volume fraction] 38.1 % Critically low 42.0-54.0 [facility] Comment on above: Performed By: #### B THERMODYNAMICS ENGINEER, LEILA, HSTROPN, CMP, LIPA #### [facility] [address] [place] [address] Dr. Rivera Sam Hemoglobin (Bld) [Mass/Vol] 12.8 g/dL Critically low 14.0-18.0 [facility] Comment on above: Performed By: #### B THERMODYNAMICS ENGINEER, LEILA, HSTROPN, CMP, LIPA #### [facility] [address] [place] [address] Dr. Rivera Sam IG # 0.01 10e3/ul Normal 0.00-0.03 [facility] Comment on above: Performed By: #### B THERMODYNAMICS ENGINEER, LEILA, HSTROPN, CMP, LIPA #### [facility] [address] [place] [address] Dr. Rivera Sam IG % 0.2 % Normal 0.0-0.5 [facility] Comment on above: Performed By: #### B THERMODYNAMICS ENGINEER, LEILA, HSTROPN, CMP, LIPA #### [facility] [address] [place] [address] Dr. Rivera Sam LYMPH # 1.1 103/ul Critically low 1.2-3.8 [facility] Comment on above: Performed By: #### B THERMODYNAMICS ENGINEER, LEILA, HSTROPN, CMP, LIPA #### [facility] [address] [place] [address] Dr. Rivera Sam Lymphocytes/100 WBC (Bld) 16.8 % Critically low 20.5-60.0 [facility] Comment on above: Performed By: #### B THERMODYNAMICS ENGINEER, LEILA, HSTROPN, CMP, LIPA #### [facility] [address] [place] [address] Dr. Rivera Sam MANUAL DIFF REQ NO Normal [facility] Comment on above: Performed By: #### B THERMODYNAMICS ENGINEER, LEILA, HSTROPN, CMP, LIPA #### [facility] [address] [place] [address] Dr. Rivera Sam MCH (RBC) [Entitic mass] 27.1 pg Normal 25.9-34.0 [facility] Comment on above: Performed By: #### B THERMODYNAMICS ENGINEER, LEILA, HSTROPN, CMP, LIPA #### [facility] [address] [place] [address] Dr. Rivera Sam MCHC (RBC) [Mass/Vol] 33.6 g/dL Normal 29.9-35.2 [facility] Comment on above: Performed By: #### B THERMODYNAMICS ENGINEER, LEILA, HSTROPN, CMP, LIPA #### [facility] [address] [place] [address] Dr. Rivera Sam MCV (RBC) [Entitic vol] 80.7 fL Normal 80.0-94.0 [facility] Comment on above: Performed By: #### B THERMODYNAMICS ENGINEER, LEILA, HSTROPN, CMP, LIPA #### [facility] [address] [place] [address] Dr. Rivera Sam MONO # 0.6 103/ul Normal 0.3-0.8 [facility] Comment on above: Performed By: #### B THERMODYNAMICS ENGINEER, LEILA, HSTROPN, CMP, LIPA #### [facility] [address] [place] [address] Dr. Rivera Sam Monocytes/100 WBC (Bld) 8.3 % Normal 1.7-12.0 [facility] Comment on above: Performed By: #### B THERMODYNAMICS ENGINEER, LEILA, HSTROPN, CMP, LIPA #### [facility] [address] [place] [address] Dr. Rivera Sam NEUT # 4.9 103/ul Normal 1.4-6.5 [facility] Comment on above: Performed By: #### B THERMODYNAMICS ENGINEER, LEILA, HSTROPN, CMP, LIPA #### [facility] [address] [place] [address] Dr. Rivera Sam Neutrophils/100 WBC (Bld) 73.5 % Normal 43.0-75.0 [facility] Comment on above: Performed By: #### B THERMODYNAMICS ENGINEER, LEILA, HSTROPN, CMP, LIPA #### [facility] [address] [address] [address] Rivera Sam Platelet mean volume (Bld) [Entitic vol] 10.0 fL Normal 9.5-13.5 [facility] Comment on above: Performed By: #### B THERMODYNAMICS ENGINEER, LEILA, HSTROPN, CMP, LIPA #### [facility] [address] [address] [address] Rivera Sam PLT 194 103/ul Normal 150-450 [facility] Comment on above: Performed By: #### B THERMODYNAMICS ENGINEER, LEILA, HSTROPN, CMP, LIPA #### [facility] [address] [place] [address] Dr. Rivera Sam RBC 4.72 106/ul Normal 4.70-6.10 [facility] Comment on above: Performed By: #### B THERMODYNAMICS ENGINEER, LEILA, HSTROPN, CMP, LIPA #### [facility] [address] [address] [address] Rivera Sam WBC 6.7 103/ul Normal 4.0-11.0 [facility] Comment on above: Performed By: #### B THERMODYNAMICS ENGINEER, LEILA, HSTROPN, CMP, LIPA #### [facility] [address] [place] [address] ABD/PELV W CONon 05-18-19 CT ABD/PELV W CON EXAMINATION: CT ABD/ PELV W CON HISTORY: UNSPECIFIED ABDOMINAL PAIN COMPARISON: Same day chest radiograph. TECHNIQUE: CT of the abdomen/pelvis with intravenous contrast. Additional delayed images to the lower pelvis. Dose reduction techniques were achieved by using automated exposure control and/or adjustment of mA and/or kV according to patient size and/or use of iterative reconstruction technique. FINDINGS: Oenologist: No pertinent findings, which are not already [...] JERAMIE LARA Date: 2021-05-18 11:02 Normal [facility] Covid-19 PCR (CVDTB)on 05-06 SARS-CoV-2 (COVID-19) RNA LONNIE+probe Ql (Unsp spec) Not detected Normal NOT DETECTED [facility] Comment on above: Result Comment: When diagnostic testing is negative, the possibility of a false negative should be considered in the context of a patient's recent exposures and the presence of clinical signs and symptoms consistent with SARS-CoV-2. This test is not yet approved or cleared by the [place] Food and Drug Administration (FDA). This test was developed by [employer], [place], [place]. The performance characteristics of this test were validated by [facility]. The results are not intended to be used as the sole means for clinical diagnosis or patient management decisions. [facility] is authorized under Clinical Laboratory Improvement [...] for this test is supported by the [place] of Health and Human Service's declaration that [...] longer be used). Performed By: #### B THERMODYNAMICS ENGINEER, LEILA, HSTROPN, CMP, LIPA #### [facility] [address] [place] [address] Dr. Rivera Sam ER URINE PROFILEon 2 Bilirubin Ql (U) Negative Normal NEGATIVE [facility] Comment on above: Performed By: #### E RUR #### [facility] [address] [place] [address] Dr. Rivera Sam Clarity (U) CLEAR Normal CLEAR [facility] Comment on above: Performed By: #### E RUR #### [facility] [address] [place] [address] Dr. Rivera Sam Color (U) LT. YELLOW Normal YELLOW [facility] Comment on above: Performed By: #### E RUR #### [facility] [address] [place] [address] Dr. Rivera Sam ERUAHD A micrscopic examina tion will be performed if indicated. Normal [facility] Comment on above: Performed By: #### E RUR #### [facility] [address] [place] [address] Dr. Rivera Sam Glucose Ql (U) Negative Normal NEGATIVE [facility] Comment on above: Performed By: #### E RUR #### [facility] [address] [place] [address] Dr. Rivera Sam Hemoglobin Ql (U) Negative Normal NEGATIVE [facility] Comment on above: Performed By: #### E RUR #### [facility] [address] [place] [address] Dr. Rivera Sam Ketones Ql (U) 40 mg/dl Abnormal NEGATIVE [facility] Comment on above: Performed By: #### E RUR #### [facility] [address] [place] [address] Dr. Rivera Sam LEUKOCYTES Negative Normal NEGATIVE [facility] Comment on above: Performed By: #### E RUR #### [facility] [address] [place] [address] Dr. Rivera Sam Nitrite Ql (U) Negative Normal NEGATIVE [facility] Comment on above: Performed By: #### E RUR #### [facility] [address] [place] [address] Dr. Rivera Sam pH (U) 7.5 [pH] Normal 5-9 [facility] Comment on above: Performed By: #### E RUR #### [facility] [address] [place] [address] Dr. Rivera Sam SPEC GRAVITY 1.015 Normal 1.005-<=1.02 5 [facility] Comment on above: Performed By: #### E RUR #### [facility] [address] [place] [address] Dr. Rivera Sam UA PROTEIN TRACE Normal NEGATIVE/ TRACE [facility] Comment on above: Performed By: #### E RUR #### [facility] [address] [place] [address] Dr. Rivera Sam UR MICRO IND NOT INDICATED Normal [facility] Comment on above: Performed By: #### E RUR #### [facility] [address] [place] [address] Dr. Rivera Sam Urobilinogen Qn (U) 0.2 {Ирина'U}/dL Normal 0.2 - 1.0 [facility] Comment on above: Performed By: #### E RUR #### [facility] [address] [place] [address] Dr. Rivera Sam LIPASEon 05-18-2021 Lipase [Catalytic activity/Vol] 70.0 U/L Normal 23.0-300.0 [facility] Comment on above: Performed By: #### B THERMODYNAMICS ENGINEER, LEILA, HSTROPN, CMP, LIPA #### [facility] [address] [place] [address] Dr. Rivera Sam PROF 14(COMP METB)on 022 Albumin [Mass/Vol] 4.5 g/dL Normal 3.5-5.0 [facility] Comment on above: Performed By: #### B THERMODYNAMICS ENGINEER, LEILA, HSTROPN, CMP, LIPA #### [facility] [address] [place] [address] Dr. Rivera Sam Albumin/Globulin [Mass ratio] 1.1 {ratio} Normal [facility] Comment on above: Performed By: #### B THERMODYNAMICS ENGINEER, LEILA, HSTROPN, CMP, LIPA #### [facility] [address] [place] [address] Dr. Rivera Sam ALP [Catalytic activity/Vol] 106 U/L Normal 38-126 [facility] Comment on above: Performed By: #### B THERMODYNAMICS ENGINEER, LEILA, HSTROPN, CMP, LIPA #### [facility] [address] [place] [address] Dr. Rivera Sam ALT [Catalytic activity/Vol] 25 U/L Normal 21-72 [facility] Comment on above: Performed By: #### B THERMODYNAMICS ENGINEER, LEILA, HSTROPN, CMP, LIPA #### [facility] [address] [place] [address] Dr. Rivera Sam Anion gap [Moles/Vol] 12.9 mmol/L Normal [facility] Comment on above: Performed By: #### B THERMODYNAMICS ENGINEER, LEILA, HSTROPN, CMP, LIPA #### [facility] [address] [place] [address] Dr. Rivera Sam AST [Catalytic activity/Vol] 20 U/L Normal 17-59 [facility] Comment on above: Performed By: #### B THERMODYNAMICS ENGINEER, LEILA, HSTROPN, CMP, LIPA #### [facility] [address] [place] [address] Dr. Rivera Sam Bilirubin [Mass/Vol] 0.7 mg/dL Normal 0.2-1.3 [facility] Comment on above: Performed By: #### B THERMODYNAMICS ENGINEER, LEILA, HSTROPN, CMP, LIPA #### [facility] [address] [place] [address] Dr. Rivera Sam Calcium [Mass/Vol] 9.3 mg/dL Normal 8.4-10.2 [facility] Comment on above: Performed By: #### B THERMODYNAMICS ENGINEER, LEILA, HSTROPN, CMP, LIPA #### [facility] [address] [address] [address] Rivera Sam Chloride [Moles/Vol] 99 mmol/L Normal 98-107 [facility] Comment on above: Performed By: #### B THERMODYNAMICS ENGINEER, LEILA, HSTROPN, CMP, LIPA #### [facility] [address] [address] [address] Rivera Sam CO2 [Moles/Vol] 30.2 mmol/L Critically high 22.0-30.0 [facility] Comment on above: Performed By: #### B THERMODYNAMICS ENGINEER, LEILA, HSTROPN, CMP, LIPA #### [facility] [address] [address] [address] Rivera Sam Creatinine [Mass/Vol] 0.56 mg/dL Critically low 0.66-1.25 [facility] Comment on above: Performed By: #### B THERMODYNAMICS ENGINEER, LEILA, HSTROPN, CMP, LIPA #### [facility] [address] [address] [address] Rivera Sam EGFR-AF SURINAMESE >60 Normal >=60 [facility] Comment on above: Performed By: #### B THERMODYNAMICS ENGINEER, LEILA, HSTROPN, CMP, LIPA #### [facility] [address] [address] [address] Rivera Sam EGFR-NON AF SURINAMESE >60 Normal >=60 [facility] Comment on above: Performed By: #### B THERMODYNAMICS ENGINEER, LEILA, HSTROPN, CMP, LIPA #### [facility] [address] [address] [address] Rivera Sam Globulin (S) [Mass/Vol] 4.1 g/dL Normal [facility] Comment on above: Performed By: #### B THERMODYNAMICS ENGINEER, LEILA, HSTROPN, CMP, LIPA #### [facility] [address] [address] [address] Rivera Sam Glucose [Mass/Vol] 155 mg/dL Critically high 74-106 [facility] Comment on above: Performed By: #### B THERMODYNAMICS ENGINEER, LEILA, HSTROPN, CMP, LIPA #### [facility] [address] [place] [address] Dr. Rivera Sam Potassium [Moles/Vol] 3.1 mmol/L Critically low 3.4-5.0 [facility] Comment on above: Performed By: #### B THERMODYNAMICS ENGINEER, LEILA, HSTROPN, CMP, LIPA #### [facility] [address] [place] [address] Dr. Rivera Sam Protein [Mass/Vol] 8.6 g/dL Critically high 6.1-8.2 [facility] Comment on above: Performed By: #### B THERMODYNAMICS ENGINEER, LEILA, HSTROPN, CMP, LIPA #### [facility] [address] [place] [address] Dr. Rivera Sam Sodium [Moles/Vol] 139 mmol/L Normal 137-145 [facility] Comment on above: Performed By: #### B THERMODYNAMICS ENGINEER, LEILA, HSTROPN, CMP, LIPA #### [facility] [address] [place] [address] Dr. Rivera Sam Urea nitrogen [Mass/Vol] 14.0 mg/dL Normal 9.0-20.0 [facility] Comment on above: Performed By: #### B THERMODYNAMICS ENGINEER, LEILA, HSTROPN, CMP, LIPA #### [facility] [address] [place] [address] Dr. Rivera Sam Urea nitrogen/Creatinin e [Mass ratio] 25.0 mg/mg Normal [facility] Comment on above: Performed By: #### B THERMODYNAMICS ENGINEER, LEILA, HSTROPN, CMP, LIPA #### [facility] [address] [place] [address] Dr. Rivera Sam PROTIMEon 05-18-2021 INR Coag (PPP) [Relative time] 0.98 {INR} Normal [facility] Comment on above: Performed By: #### P TT, PT #### [facility] [address] [place] [address] Dr. Rivera Sam INR GUIDELINES SEE BELOW Normal [facility] Comment on above: Result Comment: KINJAL RED INR: 2.0 - 3.0 CONDITIONS NOT LISTED BELOW 2.5 - 3.5 FOR PROSTHETIC HEART VALVE REPLACEMENT 2.5 - 3.5 RECURRENT THROMBOSIS Performed By: #### P TT, PT #### [facility] [address] [place] [address] Dr. Rivera Sam PT Coag (PPP) [Time] 10.6 s Normal 9.0-11.6 [facility] Comment on above: Performed By: #### P TT, PT #### [facility] [address] [address] [address] Rivera Sam PTTon 05-18-2021 aPTT Coag (Bld) [Time] 32.5 s Normal 22.3-36.2 [facility] Comment on above: Performed By: #### P TT, PT #### [facility] [address] [place] [address] Dr. Rivera Sam TROPONIN, HIGH SENSITIVITYon 05-18-2021 HSTROP 7.3 pg/mL Normal 4.0-42.2 [facility] Comment on above: Result Comment: CUT- OFF POINTS HAVE BEEN ESTABLISHED BASED ON THE FOURTH UNIVERSAL DEFINITIONS OF MYOCARDIAL INFARCTION. THE UPPER REFERENCE LIMIT (URL) OF TROPONIN, DEFINED THE 99TH PERCENTILE OF cTnI DISTRIBUTION IN A REFERENCE POPULATION, HAS BEEN CONFIRMED THE DECISION THRESHOLD FOR CT DIAGNOSIS. Performed By: #### B THERMODYNAMICS ENGINEER, LEILA, HSTROPN, CMP, LIPA #### [facility] [address] [place] [address] Dr. Rivera Sam XR CHEST 1 Von [...] by: DANISH PAN Date: 2021-05-18 09:05 Normal [facility] Vital Signs Date Time Vital Sign Value Performing Clinician Faci lity 02-14-2024 10:15-0500 Body height 188 cm Sara Benavidesk THERMODYNAMICS ENGINEER Work Phone: [facility] 02-14-2024 10:15-0500 Body mass index (BMI) [Ratio] 37.49 kg/m2 Sara Tabarestrick THERMODYNAMICS ENGINEER Work Phone: [facility] 02-14-2024 10:15-0500 Body weight 132.45 kg Sara Benavidesk THERMODYNAMICS ENGINEER Work Phone: [facility] 02-14-2024 10:15-0500 Diastolic blood pressure 74 mm[Hg] Sara Benavidesk THERMODYNAMICS ENGINEER Work Phone: [facility] 02-14-2024 10:15-0500 Heart rate 72 /min Sara Benavidesk THERMODYNAMICS ENGINEER Work Phone: [facility] 02-14-2024 10:15-0500 SaO2% (BldA) [Mass fraction] 96 % Sara Benavidesk THERMODYNAMICS ENGINEER Work Phone: [facility] 02-14-2024 10:15-0500 Systolic blood pressure 122 mm[Hg] Sara Benavidesk THERMODYNAMICS ENGINEER Work Phone: [facility] 01-07-2023 11:30-0400 Body height 187.96 cm Esther Rain Other [facility] Other 01-07-2023 11:30-0400 Body mass index (BMI) [Ratio] 24.26 kg/m2 Esther Rain Other [facility] Other 01-07-2023 11:30-0400 Body temperature 97.3 [degF] Esther Rain Other [facility] Other 01-07-2023 11:30-0400 Body weight 85.73 kg Esther Rain Other [facility] Other 01-07-2023 11:30-0400 Diastolic blood pressure 66 mm[Hg] Esther Rain Other [facility] Other 01-07-2023 11:30-0400 SaO2% (BldA) [Mass fraction] 98 % Esther Rain Other [facility] Other 01-07-2023 11:30-0400 Systolic blood pressure 116 mm[Hg] Esther Rain Other [facility] Other 05-01-2021 11:15-0500 Body height 187.96 cm Wilfredo Colon Other [facility] Other 05-01-2021 11:15-0500 Body mass index (BMI) [Ratio] 37.1 kg/m2 Wilfredo Colon Other [facility] Other 05-01-2021 11:15-0500 Body temperature 97.1 [degF] Wilfredo Colon Other [facility] Other 05-01-2021 11:15-0500 Body weight 131.09 kg Wilfredo Colon Other [facility] Other 05-01-2021 11:15-0500 Diastolic blood pressure 80 mm[Hg] Wilfredo Colon Other [facility] Other 05-01-2021 11:15-0500 SaO2% (BldA) [Mass fraction] 97 % Wilfredo Colon Other [facility] Other 05-01-2021 11:15-0500 Systolic blood pressure 120 mm[Hg] Wilfredo Colon Other [facility] Other Encounters Encounter Date Encounter Type Care Provider Facility Start: 02-15-2024 End: 02-15-2024 Orders Only Sara Morales THERMODYNAMICS ENGINEER Work Phone: [facility] Comment on above: Hypokalemia (Primary Dx) Start: 02-14-2024 End: 02-14-2024 Bamboo flowsheet Sara Morales THERMODYNAMICS ENGINEER Work Phone: [facility] Start: 02-14-2024 End: 02-14-2024 Bamboo flowsheet Sara Morales THERMODYNAMICS ENGINEER Work Phone: [facility] Start: 02-14-2024 End: 02-14-2024 ambulatory SARA MORALES Not Available Start: 02-14-2024 End: 02-14-2024 Patient encounter procedure Sara Morales THERMODYNAMICS ENGINEER Work Phone: [facility] Comment on above: Encounter for annual wellness exam in Medicare patient (Primary Dx); Mixed hyperlipidemia (CMS/HCC); Primary hypertension (CMS/HCC); Rheumatoid arthritis, involving unspecified site, unspecified whether rheumatoid factor present (CMS/HCC); Benign essential HTN (CMS/HCC); Neutropenia, unspecified type (CMS/HCC); Screening for prostate cancer; Idiopathic chronic gout of multiple sites without tophus; History of total left knee replacement; Allergic rhinitis, unspecified seasonality, unspecified trigger; Pulmonary nodule; Aortic valve stenosis, etiology of cardiac valve disease unspecified; Aortic valve disorder; Chronic venous hypertension (idiopathic) with ulcer and inflammation of left lower extremity (CMS/HCC); Chronic venous insufficiency; Congenital atresia and stenosis of aorta; Primary localized osteoarthrosis of left ankle and foot; Primary osteoarthritis of both knees; Spondylosis without myelopathy or radiculopathy, lumbar region; Spondylosis without myelopathy or radiculopathy, lumbosacral region; Arthritis of ankle joint, unspecified laterality; Arthritis of right wrist; Chronic gouty arthritis; Idiopathic osteoarthritis Start: 02-11-2024 End: 02-11-2024 Hardy Quiroz THERMODYNAMICS ENGINEER Work Phone: [facility] Comment on above: Primary hypertension (CMS/HCC) Start: 12-29-2023 End: 12-29-2023 ambulatory STEPHANY QUIROZ Not Available Start: 10-04-2023 End: 10-04-2023 ambulatory KYLAH Verma [facility] Start: 08-23-2023 End: 08-23-2023 ambulatory STEPHANY QUIROZ Not Available Start: 05-11-2023 End: 05-11-2023 ambulatory SARA Quintanilla KOTA Not Available Start: 03-15-2023 End: 03-15-2023 ambulatory KATRIN GARCIA Not Available Start: 01-07-2023 End: 01-07-2023 ambulatory Esther Rain Other [facility] Other Start: 01-07-2023 Patient encounter procedure Esther Rain [facility] Start: 12-24-2022 End: 12-24-2022 ambulatory Esther Rain Other [facility] Other Start: 12-24-2022 Telephone encounter Esther Koffi [facility] Start: 02-24-2022 End: 02-24-2022 ambulatory Eshter Rain Other [facility] Other Start: 02-24-2022 Telephone encounter Esther Koffi [facility] Start: 01-29-2022 End: 01-29-2022 ambulatory Esther Rain Other [facility] Other Start: 01-29-2022 Telephone encounter Esther Koffi [facility] Start: 05-18-2021 End: 05-18-2021 ambulatory FLAQUITO FERNANDEZ Facility: Start: 05-01-2021 End: 05-01-2021 ambulatory Wilfredo Colon Other [facility] Other Start: 05-01-2021 Office outpatient vi sit 15 minutes Wilfredo Colon [facility] Start: 05-13-2020 End: 05-14-[facility] Procedures Date Procedure Procedure Detail Performing Clinician Start: 02-14-2024 Complete blood count with white cell differential, automated Sara Morales THERMODYNAMICS ENGINEER Work Phone: Start: 02-14-2024 Comprehensive metabo lic panel Sara Morales THERMODYNAMICS ENGINEER Work Phone: Start: 02-14-2024 Lipid panel Sara Morales THERMODYNAMICS ENGINEER Work Phone: Start: 10-28-2018 Colonoscopy Stephany Headleysheng kirkpatrick THERMODYNAMICS ENGINEER Work Phone: Plan of Treatment Date Care Activity Detail Author Start: 10-28-2028 Screening for malignant neoplasm of colon [facility] Start: 02-13-2025 Medicare Annual Wellness (AWV) Medicare Annual Wellness (AWV) [facility] Start: 08-14-2024 End: 08-14-2024 Patient encounter procedure 08/14/2024 9:00 AM EDT Office Visit [facility] [address] [place] [address] Sara Morales NP [address] [place], [place] [id number] [facility] Start: 02-27-2024 Screening for malignant neoplasm of colon [facility] Start: 02-15-2024 End: 02-14-2025 Potassium [Moles/volume] in Serum or Plasma Potassium Lab Routine Hypokalemia Expected: 02/15/2024 (Approximate), Expires: 02/14/2025 [facility] Work Phone: Comment on above: Expected: 02/15/2024 (Approximate), Expires: 02/14/2025 Start: 02-14-2024 End: 02-14-2024 Patient encounter procedure 02/14/2024 10:00 AM EST Office Visit [facility] [address] [place] [address] Sara Morales NP [address] [place] [address] [facility] Start: 02-10-2024 Medicare Annual Wellness (AWV) Medicare Annual Wellness (AWV) [facility] Start: 2021 Screening for malignant neoplasm of colon [facility] Start: 1955 Screening for malignant neoplasm of colon [facility] Immunizations Immunization Date Immunization Notes Care Provider Fa cility 12-29-2023 influenza, high dose seasonal, preservative-free Stephany Kampfer THERMODYNAMICS ENGINEER Work Phone: [facility] 12-29-2023 Pneumococcal Conjugate PCV 20 Stephany Kampfer THERMODYNAMICS ENGINEER Work Phone: [facility] 02-09-2023 Influenza, High-dose Seasonal, Quadrivalent, Preservative Free Stephany Kampfer THERMODYNAMICS ENGINEER Work Phone: [facility] 02-10-2022 influenza, injectable, quadrivalent, preservative free Stephany Kampfer THERMODYNAMICS ENGINEER Work Phone: [facility] 02-25-2021 influenza, injectable, quadrivalent, preservative free Stephany Kampfer THERMODYNAMICS ENGINEER Work Phone: [facility] 02-22-2020 influenza, injectable, quadrivalent, preservative free Stephany Kampfer THERMODYNAMICS ENGINEER Work Phone: [facility] 04-11-2019 influenza, injectable, quadrivalent, preservative free Stephany Kampfer THERMODYNAMICS ENGINEER Work Phone: [facility] 02-03-2018 influenza, injectable, quadrivalent, preservative free Stephany Kampfer THERMODYNAMICS ENGINEER Work Phone: [facility] 02-02-2017 influenza, injectable, quadrivalent, preservative free Stephany Kampfer THERMODYNAMICS ENGINEER Work Phone: [facility] 05-28-2016 influenza, injectable, quadrivalent, preservative free Stephany Kampfer THERMODYNAMICS ENGINEER Work Phone: [facility] 01-13-2016 influenza, injectable, quadrivalent, preservative free Stephany Kampfer THERMODYNAMICS ENGINEER Work Phone: [facility] 06-06-2015 tetanus toxoid, reduced diphtheria toxoid, and acellular pertussis vaccine, adsorbed Stephany Headleyshengcasimiro THERMODYNAMICS ENGINEER Work Phone: [facility] 05-06-2015 influenza, seasonal, injectable Wilfredo Colon Other [facility] Other 01-03-2014 influenza, seasonal, injectable, preservative free Stephany Quiroz THERMODYNAMICS ENGINEER Work Phone: [facility] Healthcare Payers Date Payer Category Payer Medicare (Managed Care) [facility] [id number] 2022 Unknown [id number] 2022 [facility] Health Insurance [facility] [place] [id number] 2022 Unknown [id number] 2020 Self-pay [id number] 1959 Unknown [id number] 1957 Unknown [id number] 1957 Unknown [id number] 1957 Unknown [id number] 1259 1957 Unknown [id number] [id number] 1957 Unknown [id number] [id number] 1957 Unknown [id number] 1259 1957 Unknown [id number] [id number] Unknown [id number] Social History Date Type Detail Facility Unknown if ever smoked [facility] Other Start: 12-22-2022 End: 02-14-2024 Sex Assigned At [facility] Start: 1955 Sex Assigned At Male F [facility] Start: 02-08-2023 Tobacco smoking stat [facility] Ex-smoker [facility] History of tobacco use Current smoker [facility] History of tobacco use Cigarette Smoker [facility] Start: 02-08-2023 Tobacco use and exposure Smokeless tobacco non-user [facility] Start: 12-29-2023 End: 02-14-2024 Alcoholic beverage intake Lifetime non-drinker (finding) [facility] Start: 12-22-2022 End: 02-14-2024 History of Social function [facility] Within the last year , have you been afraid of your partner or ex-partner? No [facility] Are you now , , , , never or living with a partner? [facility] How often to you hav e a drink containing alcohol? Never [facility] How many standard drinks containing alcohol do you have on a typical day? Patient does not drink [facility] Do you feel stress - tense, restless, nervous, or anxious, or unable to sleep at night because your mind is troubled all the time - these days [OSQ] Only a little [facility] (I/We) worried wheth er (my/our) food would run out before (I/we) got money to buy more. Never true [facility] The food that (I/we) bought just didn't last, and (I/we) didn't have money to get more. Often true [facility] Start: 02-08-2023 Alcohol Comment caffeine: 2-3 cups per day coffee [facility] Start: 1955 Sex assigned at Not on file [facility] Clinical Notes 05-01-2021 to 02-14-2024 Sara Morales NP - 02/14/2024 10:00 AM ESTResult Encounter Note - Sara Morales NP - 02/14/2024 10:00 AM EST Note Date & Type Note Facility 02-14-2024 History of Presen t illness Narrative Moy Thomas is a 68 y.o. male who presents today for their Annual Wellness Visit. Over the past 2 weeks, how often have you been bothered by any of the following problems? Little interest or pleasure in doing things: Not at all Feeling down, depressed, or hopeless: Not at all Patient Health Questionnaire-2 Score: 0 Jim Fall Risk History of Falling, Immediate or Within 3 Months: No Health Risk Assessment Form Do you need help eating, bathing, using the toilet, dressing, or getting around your home?: No Can you prepare your own meals?: Yes Can you do your own housework without help?: Yes Can you shop for groceries or clothes without help?: Yes Do you exercise for about 20 minutes 3 or more days a week?: Yes How confident are you that you can control and manage most of your health problems?: Very confident Can you mange your money, credit cards and accounts, pay bills and taxes?: Yes Cognitive Screening Three Word Registration: Banana, [place], Chair Clock Drawing: Normal Clock - 2 Three Word Recall: All 3 words correct - 3 Total Score (0-5 Points): 5 SUBJECTIVE: PAST MEDICAL HISTORY: Past Medical History: Diagnosis Date Acute renal failure (ARF) (CMS/HCC) Arthritis Benign essential hypertension (CMS/HCC) Erectile dysfunction Genital herpes History of varicose veins Hyperlipidemia (CMS/HCC) Knee pain Low back pain Osteoarthritis of right knee, unspecified osteoarthritis type Pedal edema Polyarthralgia Skin lesion Spondylosis of lumbosacral region without myelopathy or radiculopathy MEDICATIONS: Current Outpatient Medications Medication Instructions allopurinol (Zyloprim) 100 MG tablet amLODIPine (NORVASC) 10 mg, Oral, Daily atorvastatin (LIPITOR) 10 mg, Oral, Daily carvedilol (COREG) 25 mg, Oral, 2 times daily with meals fluticasone (Flonase) 50 MCG/ACT nasal spray 1 spray, Each Nostril, Daily, Shake gently. Before first use, prime pump. After use, clean tip and replace cap. furosemide (LASIX) 40 mg, Oral, Daily gabapentin (NEURONTIN) 300 mg, Daily losartan-hydroCHLOROthiazide (Hyzaar) 100-25 MG tablet 1 tablet, Oral, Every morning meloxicam (Mobic) 7.5 MG tablet pantoprazole (PROTONIX) 40 mg, Oral, Daily before breakfast, Do not crush, chew, or split. scopolamine (Transderm-Scop) 1 mg/72 hr patch 72 hour patch 1 patch, Transdermal, Every 72 hours PRN tiZANidine (ZANAFLEX) 4 mg, Nightly PRN ALLERGIES: No Known Allergies SURGICAL HISTORY: Past Surgical History: Procedure Laterality Date COLONOSCOPY 08/17/2008 JOINT REPLACEMENT Left 03/11/2017 TKR JOINT REPLACEMENT Right 03/22/2020 knee replacement KNEE SURGERY Right 2014 VARICOSE VEIN SURGERY varicose veins FAMILY HISTORY: Family History Problem Relation Name Age of Onset Prostate cancer Brother Diabetes Brother No Known Problems Brother Hypertension Son No Known Problems Son SOCIAL HISTORY: Social History Tobacco Use Smoking status: Former Types: Cigarettes Smokeless tobacco: Never Vaping Use Vaping status: Never Used Substance Use Topics Alcohol use: Never Comment: caffeine: 2-3 cups per day coffee Drug use: Never Depression: Not at risk (02/14/2024) PHQ-2 PHQ-2 Score: 0 CURRENT PCP/CARE TEAM: Patient Care Team: Kylah Adam MD as PCP - General (Family Medicine) Kylah Adam MD as PCP - Devoted Kylah Adam MD as PCP - [facility] Over the past 2 weeks, how often have you been bothered by any of the following problems? Little interest or pleasure in doing things: Not at all Feeling down, depressed, or hopeless: Not at all Patient Health Questionnaire-2 Score: 0 Jim Fall Risk History of Falling, Immediate or Within 3 Months: No Health Risk Assessment Form Do you need help eating, bathing, using the toilet, dressing, or getting around your home?: No Can you prepare your own meals?: Yes Can you do your own housework without help?: Yes Can you shop for groceries or clothes without help?: Yes Do you exercise for about 20 minutes 3 or more days a week?: Yes How confident are you that you can control and manage most of your health problems?: Very confident Can you mange your money, credit cards and accounts, pay bills and taxes?: Yes Cognitive Screening Three Word Registration: Banana, [place], Chair Clock Drawing: Normal Clock - 2 Three Word Recall: All 3 words correct - 3 Total Score (0-5 Points): 5 Review of Systems Constitutional: Negative for chills and fatigue. HENT: Negative for ear discharge, ear pain, rhinorrhea and sore throat. Eyes: Negative for pain and redness. Respiratory: Negative for cough and chest tightness. Cardiovascular: Negative for chest pain and palpitations. Gastrointestinal: Negative for abdominal distention and abdominal pain. Genitourinary: Negative for difficulty urinating and frequency. Musculoskeletal: Negative for arthralgias and gait problem. Skin: Negative. Neurological: Negative for dizziness and numbness. Endocrine: Negative. Allergic/Immunologic: Negative. OBJECTIVE: Objective : BP 122/74 Pulse 72 Ht 6' 2 Wt 292 lb SpO2 96% BMI 37.49 kg/m No results found. Physical Exam Vitals reviewed. Constitutional: Appearance: Normal appearance. HENT: Head: Normocephalic. Right Ear: Hearing and tympanic membrane normal. Left Ear: Hearing and tympanic membrane normal. Nose: Nose normal. Right Turbinates: Not enlarged. Left Turbinates: Not enlarged. Right Sinus: No maxillary sinus tenderness or frontal sinus tenderness. Left Sinus: No maxillary sinus tenderness or frontal sinus tenderness. Mouth/Throat: Lips: [employer]. Mouth: Mucous membranes are moist. Pharynx: Oropharynx is clear. Uvula midline. Tonsils: No tonsillar exudate. Eyes: General: Lids are normal. Vision grossly intact. Gaze aligned appropriately. Extraocular Movements: Extraocular movements intact. Conjunctiva/sclera: Conjunctivae normal. Neck: Thyroid: No thyroid mass or thyromegaly. Vascular: No carotid bruit. Trachea: Trachea normal. Cardiovascular: Rate and Rhythm: Normal rate and regular rhythm. Pulses: Normal pulses. Heart sounds: Normal heart sounds. Pulmonary: Effort: Pulmonary effort is normal. Breath sounds: Normal breath sounds and air entry. Abdominal: General: Abdomen is flat. Bowel sounds are normal. Palpations: Abdomen is soft. Musculoskeletal: Cervical back: Full passive range of motion without pain, normal range of motion and neck supple. Lymphadenopathy: Cervical: No cervical adenopathy. Skin: General: Skin is warm. Capillary Refill: Capillary refill takes less than 2 seconds. Neurological: Mental Status: He is alert and oriented to person, place, and time. Sensory: Sensation is intact. Motor: Motor function is intact. Coordination: Coordination is intact. Psychiatric: Attention and Perception: Attention and perception normal. Mood and Affect: Mood and affect normal. Speech: Speech normal. Behavior: Behavior is cooperative. Thought Content: Thought content normal. ASSESSMENT AND PLAN: Assessment/Plan Diagnoses and all orders for this visit: Encounter for annual wellness exam in Medicare patient - CBC and differential; Future - PSA; Future - Lipid panel; Future - Comprehensive metabolic panel; Future Wellness performed at today. Height, weight, BMI, problem list, and immunizations records reviewed. Dental care discussed with patient. Encouraged annual vision screenings and semi-annual dental care. Encouraged healthy eating habits, limit or eliminate junk food and sources of excess calories. Mixed hyperlipidemia (CMS/HCC)-stable - Lipid panel; Future Primary hypertension (CMS/HCC)-stable continue on current medication - Comprehensive metabolic panel; Future Rheumatoid arthritis, involving unspecified site, unspecified whether rheumatoid factor present (CMS/HCC)-stable follows with rheumatology - Handicap Placard 5 Years Benign essential HTN (CMS/HCC) Neutropenia, unspecified type (CMS/HCC)-stable - CBC and differential; Future Screening for prostate cancer - PSA; Future Idiopathic chronic gout of multiple sites without tophus History of total left knee replacement-stable Allergic rhinitis, unspecified seasonality, unspecified trigger-stable Pulmonary nodule-not identifiable in 2017 Aortic valve stenosis, etiology of cardiac valve disease unspecified Aortic valve disorder Chronic venous hypertension (idiopathic) with ulcer and inflammation of left lower extremity (CMS/HCC)-follows with vascular Chronic venous insufficiency Congenital atresia and stenosis of aorta Primary localized osteoarthrosis of left ankle and foot 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, lumbar region Spondylosis without myelopathy or radiculopathy, lumbosacral region Arthritis of ankle joint, unspecified laterality Arthritis of right wrist Chronic gouty arthritis Idiopathic osteoarthritis The following health maintenance schedule was reviewed with the patient and provided in printed form in the after visit summary: Health Maintenance Topic Date Due Medicare Annual Wellness (AWV) 02/10/2024 Colorectal Cancer Screening 10/28/2028 Influenza Vaccine Completed Pneumococcal Vaccine: 65+ Years Completed Advance Care Planning Discussed with patient documented in this encounter [facility] 02-14-2024 Miscellaneous Notes Formattin g of this note might be different from the original. Let patient know his labs are stable except his potassium is slightly decreased. I sent potassium for him to start and come back at the end of the week for recheck with just a lab draw thanks. documented in this encounter [facility] 02-14-2024 Progress note Formatting of t his note might be different from the original. Let patient know his labs are stable except his potassium is slightly decreased. I sent potassium for him to start and come back at the end of the week for recheck with just a lab draw thanks. [facility] 01-07-2023 Evaluation note Encounter Date Diagnosis Assessment [...] to follow him on an as-needed basis. [facility] Other 09-21-2023 Evaluation note* Encounter Date Diagnosis Assessment Notes Treatment Notes Treatment Clinical Notes Dec, Symptomatic varicose veins of both lower extremities (ICD-10 - I83.893) [facility] Other 01-27-2022 Evaluation note* Encounter Date Diagnosis Assessment Notes Treatment Notes Treatment Clinical Notes Apr, Symptomatic varicose veins of both [...] handout with him page by page today. [facility] Other [facility]No [facility] Other Evaluation noteNo assessment information available [facility] Work Phone: Evaluation note* Diagnosis Primary hypertension (CMS/HCC) Unspecified essential hypertension documented in this encounter [facility] HealthcareEvaluation note* Diagnosis Encounter for annual wellness exam in Medicare patient- Primary Mixed hyperlipidemia (CMS/HCC) Mixed hyperlipidemia Primary hypertension (CMS/HCC) Unspecified essential hypertension Rheumatoid arthritis, involving unspecified site, unspecified whether rheumatoid factor present (CMS/HCC) Benign essential HTN (CMS/HCC) Neutropenia, unspecified type (CMS/HCC) Screening for prostate cancer Special screening for malignant neoplasm of prostate Idiopathic chronic gout of multiple sites without tophus History of total left knee replacement Allergic rhinitis, unspecified seasonality, unspecified trigger Pulmonary nodule Other diseases of lung, not elsewhere classified Aortic valve stenosis, etiology of cardiac valve disease unspecified Aortic valve disorder Aortic valve disorders Chronic venous hypertension (idiopathic) with ulcer and inflammation of left lower extremity (CMS/HCC) Chronic venous insufficiency Unspecified venous (peripheral) insufficiency Congenital atresia and stenosis of aorta Primary localized osteoarthrosis of left ankle and foot 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, lumbar region Spondylosis without myelopathy or radiculopathy, lumbosacral region Arthritis of ankle joint, unspecified laterality Arthritis of right wrist Chronic gouty arthritis Chronic gouty arthropathy without mention of tophus (tophi) Idiopathic osteoarthritis Osteoarthrosis, unspecified whether generalized or localized, unspecified site documented in this encounter [facility] HealthcareEvaluation note* Diagnosis Hypokalemia- Primary Hypopotassemia documented in this encounter [facility] HealthcareHistory general Narrative - Reported* Type Description Date Medical History arthritis Medical History hyperlipidemia Medical History hypertension Medical History h/o renal failure Medical History low back pain Medical History herpes Surgical History right knee arthroscopy Surgical History bilateral LE vein stripping in Surgical History Jonathan LE EVLT's (endov enous laser ablation) and sclerotherapies Surgical History knee replacement Rt 2012 Surgical History Lt knee replacement 03/2017 Hospitalization History SEE ABOVE [employer] Other Summary Purpose Family History Relationship Condition Age at Onset Recorded Date/T [...] and content) DATE CREATED AUTHOR 05/23/2021 [facility] DATE CREATED AUTHOR AUTHOR'S ORGANIZ ATION 01/26/2022 [facility] Special[facility] DATE CREATED AUTHOR AUTHOR'S ORGANIZ ATION 12/05/[address] [facility] DATE CREATED AUTHOR AUTHOR'S ORGANIZ ATION 09/26/2023 [facility] DATE CREATED AUTHOR AUTHOR'S ORGANIZ ATION 10/06/2023 [facility] DATE CREATED AUTHOR AUTHOR'S ORGANIZ ATION 02/15/2024 [facility] EPIC REASON FOR VISIT (unrecogniz ed section and content) Reason Comments Med Refill Reason Comments Medicare Annual Wellness Visit Subsequen t Goals (unrecognized section and content) Goals may be documented in a n alternate section Care Teams (unrecognized sec tion and content) Phd Intern Relationship Specialty Start Date End Date Kylah Adam MD [address] [facility] [place] [address] PCP - General Family Medicine 09/28/22 Kylah Adam MD [address] [facility] [place] [address] PCP - Devoted 10/03/22 Kylah Adam MD [address] [facility] [place] [address] PCP - Medical [employer] [employer] 12/04/22 04/04/99 Phd Intern Relationship Specialty Start Date End Date Kylah Adam MD [address] [place] [address] PCP - General Family Medicine 09/28/22 Kylah Adam MD [address] [place] [address] PCP - Devoted 10/03/22 Kylah Adam MD [address] [place] [address] PCP - Medical [employer] 12/04/22 04/04/99 Phd Intern Relationship Specialty Start Date End Date Kylah Adam MD [address] [place] [address] PCP - General Family Medicine 09/28/22 Kylah Adam MD [address] [place] [address] PCP - Devoted 10/03/22 Kylah Adam MD [address] [place] [address] PCP - Medical [employer] 12/04/22 04/04/99 Phd Intern Relationship Specialty Start Date End Date Kylah Adam MD [address] [place] [address] PCP - General Family Medicine 09/28/22 Kylah Adam MD [address] [place] [address] PCP - Devoted 10/03/22 Kylah Adam MD [address] [place] [address] PCP - Medical [employer] 12/04/22 04/04/99 FOR RECORDS PERTAINING TO PATIENTS WHO ARE [...] BE BASED ON THE PRIMARY CLINICAL RECORDS. [employer] [facility]. provides no warranty or guarantee of the accuracy or completeness of information in this document.
[2024-02-27 11:51] VITALS: BP 154/90; PULSE 70; O2SAT 95; BMI 35.9
[2024-02-27 11:59] VITALS: TEMP 36.5
--- NOTE | 2024-02-27 12:06 | ED_ITS ---
HPI - Nausea/Vomiting/Diarrhea General Chief complaint: Nausea/Vomiting/Diarrhea Stated complaint: VOMITING, ABDOMINAL PAIN Time Seen by Provider: 02/27/24 11:54 Mode of arrival: walk-in History of Present Illness HPI Narrative: 68-year-old male presents for vomiting. He has not felt well for the past week and today he started vomiting. No diarrhea or fever or hematemesis. He was around his son who is vomiting as well. He is feeling a bit dizzy. Related Data Home Medications ?Medication ?Instructions ?Recorded ?Confirmed allopurinol 100 mg tablet 100 mg PO DAILY 09/05/23 09/05/23 amlodipine 10 mg tablet 10 mg PO DAILY 09/05/23 09/05/23 atorvastatin 10 mg tablet 10 mg PO DAILY 09/05/23 09/05/23 carvedilol 25 mg tablet 25 mg PO BID 09/05/23 09/05/23 furosemide 40 mg tablet 40 mg PO DAILY 09/05/23 09/05/23 gabapentin 300 mg capsule 300 mg PO DAILY 09/05/23 09/05/23 losartan 100 1 tab PO DAILY 09/05/23 09/05/23 mg-hydrochlorothiazide 25 mg tablet meloxicam 7.5 mg tablet 7.5 mg PO DAILY 09/05/23 09/05/23 tizanidine 4 mg tablet 4 mg PO Q8H PRN muscle spasticity 09/05/23 09/05/23 Previous Rx's ?Medication ?Instructions ?Recorded potassium chloride 20 mEq 20 meq PO BID #6 tabs 03/15/23 tablet,extended release dicyclomine 10 mg capsule 10 mg PO QID PRN abdominal pain 09/06/23 #20 caps ondansetron 4 mg disintegrating 4 mg PO Q6H PRN nausea and 09/06/23 tablet vomiting #20 tabs dicyclomine 10 mg capsule 10 mg PO QID PRN abdominal pain 02/27/24 #20 caps ondansetron 4 mg disintegrating 4 mg PO Q6H PRN nausea and 02/27/24 tablet vomiting #20 tabs Allergies Allergy/AdvReac Type Severity Reaction Status Date / Time No Known Drug Allergies Allergy Verified 09/05/23 22:00 Review of Systems ROS Narrative A ten point review of systems is negative except as noted above. PFSH PFSH Social History Smoking status: Former smoker Little interest or pleasure in doing things: not at all Feeling down, depressed, or hopeless: not at all Exam Narrative Exam Narrative: Nurses note and vital signs reviewed and patient is not hypoxic. General: The patient appears well and in no apparent distress. Patient is resting comfortably on cart. Skin: Warm, dry, no pallor noted. There is no rash noted. Head: Normocephalic, atraumatic Eye: Normal conjunctiva, no drainage Ears, Nose, Mouth, and Throat: oral mucosa is moist. Nares patent. Cardiovascular: Regular Rate and Rhythm Respiratory: Patient is in no distress, no accessory muscle use, lungs are clear to auscultation, no wheezing, rales or rhonchi Back: non-tender GI: Normal bowel sounds, no apparent tenderness to palpation, no masses appreciated. No rebound, guarding, or rigidity noted. Musculoskeletal: The patient has no evidence of calf tenderness, no pitting edema, symmetrical pulses noted bilaterally Neurological: A&O, normal speech Psychiatric: Cooperative Constitutional Vital Signs, click to edit/add: Last Vital Signs Temp 97.7 F 02/27/24 11:59 Pulse 70 02/27/24 11:51 Resp 20 02/27/24 11:51 BP 154/90 H 02/27/24 11:51 Pulse Ox 95 02/27/24 11:51 O2 Del Method Room Air 02/27/24 11:51 Course Vital Signs Vital signs: Vital Signs Pulse Rate 70 02/27/24 11:51 Respiratory Rate 20 02/27/24 11:51 Blood Pressure 154/90 H 02/27/24 11:51 Pulse Oximetry 95 02/27/24 11:51 Oxygen Delivery Method Room Air 02/27/24 11:51 Temperature 97.7 F 02/27/24 11:59 Pulse Rate 70 02/27/24 11:51 Respiratory Rate 20 02/27/24 11:51 Blood Pressure 154/90 H 02/27/24 11:51 Pulse Oximetry 95 02/27/24 11:51 Oxygen Delivery Method Room Air 02/27/24 11:51 MDM - Nausea/Vomiting/Diarrhea MDM Narrative Medical decision making narrative: Blood work is normal. He was given IV fluids and IV Zofran and Toradol and is able to be discharged home. He likely has viral gastroenteritis. Treatment diagnosis and follow-up were discussed with the patient. Differential Diagnosis Differential diagnosis: Likely food poisoning, gastroenteritis and dehydration Lab Data Attestation: I reviewed the patient's lab results. Labs: Lab Results 02/27/24 Range/Units 12:13 WBC 7.9 (4.0-11.0) 10^3/uL RBC 4.87 (4.70-6.10) 10^6/uL Hgb 13.3 L (14.0-18.0) g/dL Hct 39.5 L (42.0-54.0) % MCV 81.1 (80.0-94.0) fL MCH 27.3 (25.9-34.0) pg MCHC 33.7 (29.9-35.2) g/dL RDW 13.0 (11.0-15.0) % Plt Count 259 (150-450) 10^3/uL MPV 10.2 (9.5-13.5) fL Neut % (Auto) 74.9 (43.0-75.0) % Lymph % (Auto) 18.0 L (20.5-60.0) % [place] % (Auto) 4.5 (1.7-12.0) % Eos % (Auto) 1.4 (0.9-7.0) % Baso % (Auto) 0.9 (0.2-2.0) % Neut # (Auto) 5.9 (1.4-6.5) 10^3/uL Lymph # (Auto) 1.4 (1.2-3.8) 10^3/uL [place] # (Auto) 0.4 (0.3-0.8) 10^3/uL Eos # (Auto) 0.1 (0.0-0.7) 10^3/uL Baso # (Auto) 0.1 (0.0-0.1) 10^3/uL Abs Immat Gran (auto) 0.02 (0.00-0.03) 10^3/uL Imm/Tot Granulo (auto) 0.3 (0.0-0.5) % Sodium 138 (136-145) mmol/L Potassium 3.0 L (3.5-5.1) mmol/L Chloride 97 L (98-107) mmol/L Carbon Dioxide 32.9 H (21.0-32.0) mmol/L Anion Gap 11.1 BUN 16.0 (7.0-18.0) mg/dL Creatinine 0.87 (0.70-1.30) mg/dL Est GFR ( Amer) >60 (>=60 mL/min/1.73m^2) Est GFR (Non-Af Amer) >60 (>=60 mL/min/1.73m^2) BUN/Creatinine Ratio 18.4 Glucose 152 H (74-106) mg/dL Calcium 9.6 (8.5-10.1) mg/dL ECG Data Attestation: I personally reviewed and interpreted this ECG as follows: (EKG on my interpretation shows sinus rhythm with a rate of 63.) Discharge Plan Discharge Chief Complaint: Nausea/Vomiting/Diarrhea Clinical Impression: Nausea & vomiting Patient Disposition: Home, Self-Care Time of Disposition Decision: 13:45 Condition: Good Mode of Transportation: Private Vehicle Prescriptions / Home Meds: New ondansetron 4 mg tablet,disintegrating 4 mg PO Q6H PRN (Reason: nausea and vomiting) Qty: 20 0RF dicyclomine 10 mg capsule 10 mg PO QID PRN (Reason: abdominal pain) Qty: 20 0RF No Action potassium chloride 20 mEq tablet extended release 20 meq PO BID Qty: 6 0RF allopurinol 100 mg tablet 100 mg PO DAILY amlodipine 10 mg tablet 10 mg PO DAILY atorvastatin 10 mg tablet 10 mg PO DAILY carvedilol 25 mg tablet 25 mg PO BID furosemide 40 mg tablet 40 mg PO DAILY gabapentin 300 mg capsule 300 mg PO DAILY Rx Instructions: Takes at bedtime losartan-hydrochlorothiazide 100-25 mg tablet 1 tab PO DAILY meloxicam 7.5 mg tablet 7.5 mg PO DAILY tizanidine 4 mg tablet 4 mg PO Q8H PRN (Reason: muscle spasticity) ondansetron 4 mg tablet,disintegrating 4 mg PO Q6H PRN (Reason: nausea and vomiting) Qty: 20 0RF dicyclomine 10 mg capsule 10 mg PO QID MDD Abdominal PRN (Reason: abdominal pain) Qty: 20 0RF Print Language: Albanian Instructions: Acute Nausea and Vomiting (ED) Referrals: ABDOUL ADAM [Primary Care Provider] - 1 week
--- NOTE | 2024-02-27 12:08 | ECG_ITS ---
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
[2024-02-27] MEDS: 0.9 % SODIUM CHLORIDE 1,000 ML 1000 ML IV (12:17)
[2024-02-27] MEDS: ONDANSETRON PF 4 MG/2 ML VIAL IV ×2 (12:17→13:17)
[2024-02-27 12:42] LABS: Basophils Absolute Auto 0.1 10^3/uL (0.0-0.1); Basophils Percent Auto 0.9 % (0.2-2.0); Eosinophils Absolute Auto 0.1 10^3/uL (0.0-0.7); Eosinophils Percent Auto 1.4 % (0.9-7.0); Hematocrit 39.5 % (42.0-54.0); Hemoglobin 13.3 g/dL (14.0-18.0); Immature Granulocytes Abs Auto 0.02 10^3/uL (0.00-0.03); Immature Granulocytes Pct Auto 0.3 % (0.0-0.5); Lymphocytes Absolute Auto 1.4 10^3/uL (1.2-3.8); Mean Corpuscular HGB Conc 33.7 g/dL (29.9-35.2); Mean Corpuscular Hemoglobin 27.3 pg (25.9-34.0); Mean Corpuscular Volume 81.1 fL (80.0-94.0); Mean Platelet Volume 10.2 fL (9.5-13.5); Monocytes Absolute Auto 0.4 10^3/uL (0.3-0.8); Monocytes Percent Auto 4.5 % (1.7-12.0); Neutrophils Absolute Auto 5.9 10^3/uL (1.4-6.5); Neutrophils Percent Auto 74.9 % (43.0-75.0); Platelet Count 259 10^3/uL (150-450); Red Blood Count 4.87 10^6/uL (4.70-6.10); White Blood Count 7.9 10^3/uL (4.0-11.0)
[2024-02-27 12:48] LABS: Anion Gap 11.1; BUN Creatinine Ratio 18.4; Carbon Dioxide 32.9 mmol/L (21.0-32.0); Chloride 97 mmol/L (98-107); Estimated GFR (African America >60 (>=60 mL/min/1.73m^2); Estimated GFR (Non-African Ame >60 (>=60 mL/min/1.73m^2); Glucose 152 mg/dL (74-106); Sodium 138 mmol/L (136-145)
[2024-02-27 13:05] LABS: Calcium 9.6 mg/dL (8.5-10.1)
[2024-02-27] MEDS: KETOROLAC TROMETHAMINE 30 MG/ML VIAL IVP (13:16)
== END 2024-02-27 13:53 | disposition home or self-care (01) ==
PROVIDERS: Emergency Provider Emergency Medicine; PCP Family Medicine
DX: R11.2 Nausea with vomiting, unspecified (principal); R42 Dizziness and giddiness; Z87.891 Personal history of nicotine dependence
CPT/HCPCS: 36415; 80048; 85025; 93005; 96361; 96374; 96375; 96376; 99284; J1885; J2405